=== PATIENT | female | born 1945 | race Caucasian/White ===

== ENCOUNTER 2018-08-23 18:06 | Inpatient (IN) | payer MEDICARE, MEDICAID ==
[2018-08-23 18:07] VITALS: BMI 55.0
[2018-08-23] MEDS ORDERED: Albuterol-Ipratrop 3 mg / 0.5 (3 ml) UD INH STA (18:26)
[2018-08-23] MEDS ORDERED: Albuterol-Ipratrop 3 mg / 0.5 (3 ml) UD IH STA ×2 (18:26→18:48)
[2018-08-23] MEDS ORDERED: Sodium Chloride 0.9% 500 ML IV SCH (18:30)
[2018-08-23] MEDS ORDERED: Etomidate 20 mg/10ml Inj IV ONE (18:34)
[2018-08-23] MEDS ORDERED: Succinylcholine 200 mg/10 ml Inj IV ONE (18:34)
[2018-08-23] MEDS ORDERED: Propofol 10 mg/ml 0 MG/0 ML VIAL ONE (18:42)
[2018-08-23] MEDS ORDERED: Propofol 10 mg/ml Inj (20 ML) ONE (18:42)
[2018-08-23 18:46] LABS: BASO # 0.1 K/uL (0.0-0.2); BASO % 0.4 % (0.0-2.0); EOS # 0.1 K/uL (0.0-0.7); EOS % 0.4 % (0.0-4.0); HEMOGLOBIN 11.9 g/dL (12.0-16.0); LYMPH # 2.4 K/uL (1.0-4.3); LYMPH % 13.7 % (20.0-40.0); MEAN CELL VOLUME 89.7 fl (81.0-99.0); MEAN CORPUSCULAR HEMOGLOBIN 28.1 pg (27.0-31.0); MEAN CORPUSCULAR HGB CONC 31.3 g/dL (33.0-37.0); MEAN PLATELET VOLUME 8.9 fl (7.2-11.7); MONO # 1.8 K/uL (0.0-0.8); MONO % 10.6 % (0.0-10.0); NEUT # 13.1 K/uL (1.8-7.0); NEUT % 74.9 % (50.0-75.0); NRBC % 0.1 % (0.0-0.0); RBC 4.24 Mil/uL (3.80-5.20); RED CELL DISTRIBUTION WIDTH 16.6 % (11.5-14.5); WHITE BLOOD COUNT 17.5 K/uL (4.8-10.8)
[2018-08-23] MEDS ORDERED: Magnesium Sulfate 2 gm/50 ml 2 GM/50 ML BAG IVPB ONE (18:48)
--- NOTE | 2018-08-23 18:50 | ED PDOC ---
HPI: Altered Mental Status Time Seen by Provider: 08/23/18 18:23 Chief Complaint (Nursing): Altered Mental Status Chief Complaint (Provider): Altered mental status History Per: Patient History/Exam Limitations: Clinical Condition Onset/Duration Of Symptoms: Days (today) Additional Complaint(s): Pt. was found at alf today altered and having trouble breathing. Pt. not responsive there so sent to the ER. Per records pt. recently admitted for respiratory distress. Dc few days ago from [facility]. PCP per notes: Dr. Zamudio. Past Medical History Reviewed: Historical Data, Nursing Documentation, Vital Signs Vital Signs: Last Vital Signs Temp 98.4 F 08/23/18 18:09 Pulse 59 L 08/23/18 18:09 Resp 16 08/23/18 18:09 BP 118/68 08/23/18 18:09 Pulse Ox 96 08/23/18 18:09 - Medical History PMH: Anemia, Anxiety, Arthritis, Bipolar Disorder, COPD, Dementia, Depression, HTN, Hypothyroidism, Parkinson's Disease, Sleep Apnea (on Bipap) Denies: Chronic Kidney Disease - Family History Family History: States: Unknown Family Hx - Living Arrangements Living Arrangements: Intermediate/Assist Lvng - Immunization History Hx Tetanus Toxoid Vaccination: No Hx Influenza Vaccination: No Hx Pneumococcal Vaccination: No - Home Medications Home Medications: Ambulatory Orders Medication Instructions Recorded Acetaminophen [Tylenol 325mg tab] 325 mg PO Q4H PRN 09/16/17 Cran/Vitc/Mannose/Fos/Bromeln 30 ml PO HS 09/16/17 [Uti-Stat Liquid] Famotidine 20 mg PO DAILY 09/16/17 Levothyroxine [Synthroid] 150 mcg PO DAILY 09/16/17 Magnesium Hydroxide [Milk Of 30 ml PO PRN PRN #0 09/16/17 Magnesia] Insulin Human Regular [Novolin R] 0 unit SC ACHS unit 03/19/18 Montelukast [Singulair] 10 mg PO HS #0 03/19/18 Amino Acids/Protein Hydrolys 30 ml PO DAILY 05/05/18 [Prostat 15 g packet] Azelastine HCl 1 drop OU Q8 05/05/18 Gabapentin 300 mg PO BID 05/05/18 Insulin Detemir [Levemir] 40 unit SC HS 05/05/18 Albuterol/Ipratropium [Duoneb 3 3 ml INH Q6H neb 05/09/18 mg/0.5 mg (3 ml) UD] Carbidopa/Levodopa 2 each PO TID 06/01/18 [Carbidopa-Levodopa 25-100 Tab] Furosemide [Lasix] 40 mg PO DAILY 999 Days tab 06/03/18 Aspirin [Aspirin Chewable] 81 mg PO DAILY chew 06/20/18 Escitalopram [Lexapro] 10 mg PO DAILY tab 06/20/18 Lisinopril [Zestril] 2.5 mg PO DAILY tab 06/20/18 Metoprolol Tartrate [Lopressor] 25 mg PO BID tab 06/20/18 Primidone [Mysoline] 100 mg PO HS tab 06/20/18 Rosuvastatin Calcium 2.5 [Crestor] 2.5 mg PO HS tab 06/20/18 predniSONE [predniSONE Tab] 10 mg PO DAILY 07/05/18 amLODIPine [Norvasc] 10 mg PO DAILY 30 Days tab 07/11/18 Moxifloxacin [Avelox] 400 mg PO DAILY #7 tab 08/21/18 Vancomycin/0.9 % Sod Chloride 1 gm IV DAILY 7 Days plast..bag 08/21/18 [Vancomycin 1 G/100Ml-0.9% NaCl] - Allergies Allergies/Adverse Reactions: Allergies Allergy/AdvReac Type Severity Reaction Status Date / Time Cephalosporins Allergy Intermediate RASH Verified 08/16/18 01:23 Penicillins Allergy Intermediate RASH Verified 08/16/18 01:23 clonazepam [From Klonopin] Allergy Verified 08/16/18 01:23 mustard Allergy Intermediate RASH Uncoded 08/16/18 01:23 Review of Systems Review Of Systems: ROS cannot be obtained secondary to pt's inabilty to answer questions. Physical Exam - Reviewed Nursing Documentation Reviewed: Yes Vital Signs Reviewed: Yes - Physical Exam Appears: Positive for: In Acute Distress Head Exam: Positive for: ATRAUMATIC, NORMAL INSPECTION, NORMOCEPHALIC Skin: Positive for: Warm, Dry Eye Exam: Positive for: PERRL. Negative for: Periorbital swelling, Periorbital tenderness ENT: Positive for: Other (no gag). Negative for: Nasal Congestion, Tonsillar Exudate Neck: Positive for: Supple Cardiovascular/Chest: Positive for: Regular Rate, Rhythm Respiratory: Positive for: Decreased Breath Sounds, Accessory Muscle Use Gastrointestinal/Abdominal: Positive for: Soft, Other (obese). Negative for: Tenderness Back: Positive for: Normal Inspection Extremity: Negative for: Tenderness, Pedal Edema Neurologic/Psych: Positive for: Other (no responding to commands; unresponsive). Negative for: Alert, Oriented - ECG O2 Sat by Pulse Oximetry: 96 Pulse Ox Interpretation: Normal (with oxygen) - Progress ED Course And Treament: 1851: Per records pt. extensive copd hx. Intubated last visit and dc few days ago back to alf. Pt. with no gag so intubated. Will give tx for copd. Pt. has a port, will use. 1899: Dr. Medina to fu on labs imaging, and dispo. Procedures - Intubation Time of Intubation: 18:45 (etomidate 20 used) Intubation Method: orotracheal Tube Size (cm): 7.5 Breath Sounds after Intubation: equal Intubation Complications: no complications Post Intubation Xray: No (pending x-ray) Progress/Xray Impression: Good breath sounds b/l; no breath sounds in abd; CO2 detector change see Disposition - Clinical Impression Clinical Impression: COPD (chronic obstructive pulmonary disease) - Patient ED Disposition Is Patient to be Admitted: Transfer of Care - Disposition Disposition: Transfer of Care Disposition Time: 19:03 Condition: SERIOUS Patient Signed Over To: Agustin Medina
[2018-08-23 18:53] LABS: SQUAMOUS EPITHIAL 1 /hpf (0-5); URINE BACTERIA RARE (<OCC); URINE BILIRUBIN NEGATIVE (NEGATIVE); URINE BLOOD SMALL (NEGATIVE); URINE CLARITY SLIGHTY-CLOUDY (Clear); URINE COLOR YELLOW (YELLOW); URINE GLUCOSE (UA) NEG (Normal); URINE LEUKOCYTE ESTERASE NEG Leu/uL (Negative); URINE PROTEIN 30 mg/dL (NEGATIVE); URINE UROBILINOGEN 0.2-1.0 mg/dL (0.2-1.0)
[2018-08-23 18:57] LABS: ABG ALLEN TEST YES; ARTERIAL BLOOD GAS HCO3 30.6 mmol/L (21-28); ARTERIAL BLOOD GAS O2 SAT 100.4 % (95-98); ARTERIAL BLOOD GAS PCO2 120 mm/Hg (35-45); ARTERIAL BLOOD GAS PH 7.14 (7.35-7.45); ARTERIAL BLOOD GAS PO2 151 mm/Hg (80-100); ARTERIAL BLOOD GAS TCO2 44.5 mmol/L (22-28)
[2018-08-23 18:59] LABS: ALBUMIN 3.3 g/dL (3.5-5.0); BLOOD UREA NITROGEN 29 mg/dl (7-17); CALCIUM 8.5 mg/dL (8.4-10.2); GFR NON-AFRICAN AMERICAN > 60
[2018-08-23 19:00] LABS: ALB/GLOB RATIO 1.1 (1.0-2.1); ALT/SGPT 13 U/L (9-52); AST/SGOT 21 U/L (14-36)
[2018-08-23] MEDS ORDERED: Etomidate 20 mg/10ml Inj IV STA (19:02)
[2018-08-23 19:04] LABS: INR 0.9; PROTHROMBIN TIME 10.6 Seconds (9.8-13.1)
[2018-08-23 19:07] LABS: PARTIAL THROMBOPLASTIN TIME 30.6 Seconds (25.6-37.1)
[2018-08-23 19:09] LABS: B-TYPE NATRIURETIC PEPTIDE 876 pg/ml (0-900)
[2018-08-23] MEDS ORDERED: Albuterol-Ipratrop 3 mg / 0.5 (3 ml) UD ONE ×2 (19:13→20:37)
[2018-08-23] MEDS ORDERED: Magnesium Sulfate 2 gm/50 ml 2 GM/50 ML BAG ONE (19:14)
[2018-08-23] MEDS ORDERED: Sodium Chloride 0.9% 1,000 ML IV STA ×2 (19:15→20:29)
--- NOTE | 2018-08-23 19:23 | ED PDOC ---
- Laboratory Results Result Diagrams: 08/24/18 04:45 08/24/18 04:45 - ECG O2 Sat by Pulse Oximetry: 96 (RA) Pulse Ox Interpretation: Normal - Critical Care Total Time (In Min): 30 Documented Critical Care: Time excludes all time spent performint seperately billable procedures Medical Decision Making Medical Decision Making: Time: 19:00 Patient was endorsed to me by Dr. Laughlin pending labs, CT, and reevaluation. 22:42 Labs review, significant for leukocytosis. Urine indicative of a urinary tract infection. IV Cipro ordered and patient's blood pressure improved after 2 liters IV fluid bolus. Case discussed with Dr. Becker for admission. Scribe Attestation: Documented by, Alexia Rangel acting as a scribe for Agustin Medina MD. Provider Scribe Attestation: All medical record entries made by the Scribe were at my direction and personally dictated by me. I have reviewed the chart and agree that the record accurately reflects my personal performance of the history, physical exam, medical decision making, and the department course for this patient. I have also personally directed, reviewed, and agree with the discharge instructions and disposition. Disposition - Clinical Impression Clinical Impression: COPD (chronic obstructive pulmonary disease), Hypercapnic respiratory failure - POA Present On Arrival: None - Disposition Disposition: Admitted as In-Patient Disposition Time: 22:45 Condition: GUARDED
[2018-08-23] MEDS ORDERED: Ciprofloxacin 400mg/200ml D5W 400 MG/200 ML BAG IV STA (19:49)
[2018-08-23] MEDS ORDERED: Ciprofloxacin 400mg/200ml D5W 400 MG/200 ML BAG IVPB ONE (20:37)
--- NOTE | 2018-08-23 22:12 | CP.PCM.HP ---
History of Present Illness - History of Present Illness History of Present Illness: PCP per notes: Dr. Zamudio Chief Complaint: SOB/AMS The patient was seen and examined in the ED already HPI: The hx is obtained from the ED physician and after review of the medical and radiological records as the patient is intubated and sedated. This is a 72 years old patient From the [facility],with hx of morbid obesity, Sleep Apnea, Probably obesity hypoventilation, COPDand DM insulin requiring. She was last admitted at the [facility] on 08/16/18 with COPD exacerbation having to be intubated. She was Discharged on 08/21/18. She comes with one day of SOB and Altered mental status. In the ED he PCO2 was 120 and pH of 7.14. She was intubated immediately. Blood pressure fell post intubation but improved with IV fluids. PMH Anemia, Anxiety, Arthritis, Bipolar Disorder, COPD, Dementia, Depression, HTN, HLD, Parkinson's Disease, Sleep Apnea (on Bipap)Morbid Obesity; Hypothyro idism; IDDM PSH: Hysterectomy; Orthopedic surgery; right breast surgery SH: Unknown if smoked; No illegal drug use; No Alcohol, Reside at [facility]; Indwelling olivarez catheter FH: States: Unknown Family Hx Allergies: Cephalosporins; PCN; Clonazepam; Mustard Medication: Reviewed Present on Admission - Present on Admission Any Indicators Present on Admission: Yes History of DVT/PE: No History of Uncontrolled Diabetes: Yes Urinary Catheter: No Decubitus Ulcer Present: No Review of Systems - Review of Systems Systems not reviewed;Unavailable: Altered Mental Status, Intubated Review of Systems: Review of systems is limited becauser the patient is intubated and was not respinding normal on entering the ED. Past Patient History - Infectious Disease Hx of Infectious Diseases: None - Tetanus Immunizations Tetanus Immunization: Unknown - Past Medical History & Family History Past Medical History?: Yes - Past Social History Smoking Status: Unknown If Ever Smoked Chewing Tobacco Use: No Cigar Use: No Alcohol: None Drugs: Denies Home Situation {Lives}: [facility] - CARDIAC Hx Hypertension: Yes - PULMONARY Hx Chronic Obstructive Pulmonary Disease (COPD): Yes Hx Sleep Apnea: Yes (on Bipap) - NEUROLOGICAL Hx Dementia: Yes Hx Parkinson's Disease: Yes - HEENT Hx HEENT Problems: No - RENAL Hx Chronic Kidney Disease: No - ENDOCRINE/METABOLIC Hx Hypothyroidism: Yes - HEMATOLOGICAL/ONCOLOGICAL Hx Anemia: Yes - INTEGUMENTARY Hx Dermatological Problems: No - MUSCULOSKELETAL/RHEUMATOLOGICAL Hx Arthritis: Yes - GASTROINTESTINAL Hx Gastrointestinal Disorders: Yes Hx Constipation: Yes Hx Gastroesophageal Reflux: Yes - GENITOURINARY/GYNECOLOGICAL Hx Genitourinary Disorders: Yes Hx Incontinence: Yes Hx Urinary Tract Infection: Yes - PSYCHIATRIC Hx Anxiety: Yes Hx Bipolar Disorder: Yes Hx Depression: Yes - SURGICAL HISTORY Hx Surgeries: Yes Hx Hysterectomy: Yes Hx Orthopedic Surgery: Yes Other/Comment: right knee replacement 2014; right knee prosthesis removal s/p infection 2014 - ANESTHESIA Hx Anesthesia: Yes Hx Anesthesia Reactions: No Hx Malignant Hyperthermia: No Meds Allergies/Adverse Reactions: Allergies Allergy/AdvReac Type Severity Reaction Status Date / Time Cephalosporins Allergy Intermediate RASH Verified 08/16/18 01:23 Penicillins Allergy Intermediate RASH Verified 08/16/18 01:23 clonazepam [From Klonopin] Allergy Verified 08/16/18 01:23 mustard Allergy Intermediate RASH Uncoded 08/16/18 01:23 Physical Exam - Constitutional Appears: In Acute Distress Additional comments: Morbid obesity - Head Exam Head Exam: ATRAUMATIC, NORMAL INSPECTION, NORMOCEPHALIC - Eye Exam Eye Exam: Normal appearance Pupil Exam: NORMAL ACCOMODATION - ENT Exam ENT Exam: Mucous Membranes Moist, Normal External Ear Exam - Neck Exam Neck exam: Positive for: Full Rom. Negative for: Lymphadenopathy Additional comments: Short neck. - Respiratory Exam Respiratory Exam: Decreased Breath Sounds, Rhonchi, Wheezes - Cardiovascular Exam Cardiovascular Exam: REGULAR RHYTHM, RRR, +S1, +S2. absent: Gallop - GI/Abdominal Exam Additional comments: Obese abdomen, soft, no viceromegaleas - Rectal Exam Rectal Exam: Deferred - Extremities Exam Extremities exam: Negative for: joint swelling, pedal edema - Back Exam Back exam: NORMAL INSPECTION - Neurological Exam Additional comments: Intubated, sedated, no facial droop, moved both upper extremities, moving the left lower extremities more than the right lower extremity. - Psychiatric Exam Additional comments: Intubated, Sedated - Skin Skin Exam: Intact, Normal Color, Warm Results - Vital Signs Recent Vital Signs: Last Vital Signs Temp 97.7 F 08/23/18 18:52 Pulse 57 L 08/23/18 21:20 Resp 18 08/23/18 21:20 BP 111/56 L 08/23/18 21:20 Pulse Ox 100 08/23/18 21:20 - Labs Result Diagrams: 08/23/18 18:40 08/23/18 18:40 Labs: Laboratory Results - last 24 hr 08/23/18 08/23/18 08/23/18 18:28 18:40 18:40 WBC 17.5 H RBC 4.24 Hgb 11.9 L Hct 38.0 MCV 89.7 MCH 28.1 MCHC 31.3 L RDW 16.6 H Plt Count 303 MPV 8.9 Neut % (Auto) 74.9 Lymph % (Auto) 13.7 L [place] % (Auto) 10.6 H Eos % (Auto) 0.4 Baso % (Auto) 0.4 Neut # (Auto) 13.1 H Lymph # (Auto) 2.4 [place] # (Auto) 1.8 H Eos # (Auto) 0.1 Baso # (Auto) 0.1 PT INR APTT pCO2 pO2 HCO3 ABG pH ABG Total CO2 ABG O2 Saturation ABG Base Excess Jay Test ABG Potassium A-a O2 Difference Glucose Lactate Vent Mode FiO2 Crit Value Called To Crit Value Called By Crit Value Read Back Blood Gas Notified Time Sodium 142 Potassium 4.5 Chloride 100 Carbon Dioxide 34 H Anion Gap 13 BUN 29 H Creatinine 0.6 L Est GFR ( Amer) > 60 Est GFR (Non-Af Amer) > 60 POC Glucose (mg/dL) 147 H Random Glucose 149 H Calcium 8.5 Phosphorus 4.9 H Magnesium 2.4 H Total Bilirubin 0.2 AST 21 ALT 13 Alkaline Phosphatase 53 Troponin I 0.0420 NT-Pro-B Natriuret Pep 876 Total Protein 6.4 Albumin 3.3 L Globulin 3.1 Albumin/Globulin Ratio 1.1 Arterial Blood Potassium Urine Color Urine Clarity Urine pH Ur Specific [place] Urine Protein Urine Glucose (UA) Urine Ketones Urine Blood Urine Nitrate Urine Bilirubin Urine Urobilinogen Ur Leukocyte Esterase Urine RBC (Auto) Urine Microscopic WBC Ur Squamous Epith Cells Ur Transition Epith Cell Urine Bacteria Influenza Typ A,B (EIA) 08/23/18 08/23/18 08/23/18 18:40 18:48 18:53 WBC RBC Hgb Hct MCV MCH MCHC RDW Plt Count MPV Neut % (Auto) Lymph % (Auto) [place] % (Auto) Eos % (Auto) Baso % (Auto) Neut # (Auto) Lymph # (Auto) [place] # (Auto) Eos # (Auto) Baso # (Auto) PT INR APTT pCO2 120 H* pO2 151 H HCO3 30.6 H ABG pH 7.14 L* ABG Total CO2 44.5 H ABG O2 Saturation 100.4 H ABG Base Excess 7.2 H Jay Test Yes ABG Potassium 4.3 A-a O2 Difference 412.0 Glucose 160 H Lactate 0.6 L Vent Mode Nrb FiO2 100.0 Crit Value Called To nuvia Laughlin md Crit Value Called By Jayant norton Crit Value Read Back Y Blood Gas Notified Time 1857 Sodium 139.0 Potassium Chloride 104.0 Carbon Dioxide Anion Gap BUN Creatinine Est GFR ( Amer) Est GFR (Non-Af Amer) POC Glucose (mg/dL) Random Glucose Calcium Phosphorus Magnesium Total Bilirubin AST ALT Alkaline Phosphatase Troponin I NT-Pro-B Natriuret Pep Total Protein Albumin Globulin Albumin/Globulin Ratio Arterial Blood Potassium 4.3 Urine Color Yellow Urine Clarity Slighty-cloudy Urine pH 6.0 Ur Specific [place] 1.016 Urine Protein 30 Urine Glucose (UA) Neg Urine Ketones Negative Urine Blood Small Urine Nitrate Negative Urine Bilirubin Negative Urine Urobilinogen 0.2-1.0 Ur Leukocyte Esterase Neg Urine RBC (Auto) 4 H Urine Microscopic WBC 12 H Ur Squamous Epith Cells 1 Ur Transition Epith Cell 4 H Urine Bacteria Rare Influenza Typ A,B (EIA) Negative for flu a/b 08/23/18 18:55 WBC RBC Hgb Hct MCV MCH MCHC RDW Plt Count MPV Neut % (Auto) Lymph % (Auto) [place] % (Auto) Eos % (Auto) Baso % (Auto) Neut # (Auto) Lymph # (Auto) [place] # (Auto) Eos # (Auto) Baso # (Auto) PT 10.6 INR 0.9 APTT 30.6 pCO2 pO2 HCO3 ABG pH ABG Total CO2 ABG O2 Saturation ABG Base Excess Jay Test ABG Potassium A-a O2 Difference Glucose Lactate Vent Mode FiO2 Crit Value Called To Crit Value Called By Crit Value Read Back Blood Gas Notified Time Sodium Potassium Chloride Carbon Dioxide Anion Gap BUN Creatinine Est GFR ( Amer) Est GFR (Non-Af Amer) POC Glucose (mg/dL) Random Glucose Calcium Phosphorus Magnesium Total Bilirubin AST ALT Alkaline Phosphatase Troponin I NT-Pro-B Natriuret Pep Total Protein Albumin Globulin Albumin/Globulin Ratio Arterial Blood Potassium Urine Color Urine Clarity Urine pH Ur Specific [place] Urine Protein Urine Glucose (UA) Urine Ketones Urine Blood Urine Nitrate Urine Bilirubin Urine Urobilinogen Ur Leukocyte Esterase Urine RBC (Auto) Urine Microscopic WBC Ur Squamous Epith Cells Ur Transition Epith Cell Urine Bacteria Influenza Typ A,B (EIA) - Imaging and Cardiology Chest x-ray Status: Image reviewed by me Additional comment: No infiltrate CT scan - head Status: Image reviewed by me Additional comment: No hemorrhage nor mass observed Assessment & Plan - Assessment and Plan (Free Text) Assessment: #. Acute on chronic hypocapneic Respiratory Failure #. COPD Exacerbation #. Dehydration #. IDDM with Hyperglycemia #. Hypothyroidism #. Leukocytosis Plan: 72 years old patient From the [facility],with hx of morbid obes ity, Sleep Apnea, Probably obesity hypoventilation, COPD and DM insulin requiring, Discharged 08/21/18 from [facility], Dx COPD exacerbation with intubation. She comes with one day of SOB and Altered mental status. In the ED he PCO2 was 120 and pH of 7.14. She was intubated immediately. Blood pressure fell post intubation but improved with IV fluids. #. Acute on chronic hypocapneic Respiratory Failure - Consult Pulmonary Dr Leivaut - Orotrachial Intubation with mechanical intubation - follow ABG #. COPD Exacerbation - Albuterol/Ipratropium - Methylprednisolone #. Dehydration - IV Fluids - follow Renal labs #. IDDM with Hyperglycemia - levemir - Lispro sliding scale according to accucheck #. Hypothyroidism - Levothyroxin #. Leukocytosis probably due to the Steroids that the patient was taking #. DVT prophylaxis with SCD and lovenox #. Code Status: Full - Date & Time Date: 08/23/18 Time: 22:12
[2018-08-23] MEDS: Propofol 10 mg/ml 1,000 MG/100 ML VIAL IV SCH (22:25)
[2018-08-23] MEDS: Sodium Chloride 0.9% 1,000 ML IV SCH (23:57)
[2018-08-24 01:58] LABS: ABG ALLEN TEST YES; ARTERIAL BLOOD GAS HCO3 29.8 mmol/L (21-28); ARTERIAL BLOOD GAS HEMOGLOBIN 11.7 g/dL (11.7-17.4); ARTERIAL BLOOD GAS O2 CONTENT 15.8 ML/dL (15-23); ARTERIAL BLOOD GAS O2 SAT 98.5 % (95-98); ARTERIAL BLOOD GAS PCO2 28 mm/Hg (35-45); ARTERIAL BLOOD GAS PO2 91 mm/Hg (80-100); ARTERIAL BLOOD GAS TCO2 28.4 mmol/L (22-28)
[2018-08-24] MEDS ORDERED: Albuterol-Ipratrop 3 mg / 0.5 (3 ml) UD INH PRN (02:45)
[2018-08-24] MEDS ORDERED: Insulin Regular 100 units/ml SC SCH (03:00)
[2018-08-24] MEDS ORDERED: methylPREDNISolone 60 MG in Sodium Chloride 0.9% 50 ML IVPB SCH (04:00)
[2018-08-24 05:10] LABS: HEMOGLOBIN 10.7 g/dL (12.0-16.0); MEAN CELL VOLUME 88.7 fl (81.0-99.0); MEAN CORPUSCULAR HEMOGLOBIN 28.2 pg (27.0-31.0); MEAN CORPUSCULAR HGB CONC 31.7 g/dL (33.0-37.0); RBC 3.82 Mil/uL (3.80-5.20); RED CELL DISTRIBUTION WIDTH 16.1 % (11.5-14.5); WHITE BLOOD COUNT 14.6 K/uL (4.8-10.8)
[2018-08-24 05:23] LABS: ABG ALLEN TEST YES; ARTERIAL BLOOD GAS HCO3 29.7 mmol/L (21-28); ARTERIAL BLOOD GAS HEMOGLOBIN 11.6 g/dL (11.7-17.4); ARTERIAL BLOOD GAS O2 CONTENT 15.8 ML/dL (15-23); ARTERIAL BLOOD GAS O2 SAT 98.5 % (95-98); ARTERIAL BLOOD GAS PCO2 37 mm/Hg (35-45); ARTERIAL BLOOD GAS PH 7.51 (7.35-7.45); ARTERIAL BLOOD GAS PO2 107 mm/Hg (80-100); ARTERIAL BLOOD GAS TCO2 30.6 mmol/L (22-28)
[2018-08-24 05:24] LABS: BLOOD UREA NITROGEN 24 mg/dl (7-17); CALCIUM 6.8 mg/dL (8.4-10.2); GFR NON-AFRICAN AMERICAN > 60
[2018-08-24] MEDS: Albuterol-Ipratrop 3 mg / 0.5 (3 ml) UD INH SCH ×5 (07:42→23:34)
--- NOTE | 2018-08-24 08:49 | CARD ---
APPROVED REPORT Date of service: 08/23/2018 EKG Measurement Heart [id number] <Conclusion> Normal sinus rhythm Normal ECG
[2018-08-24] MEDS: Sodium Chloride 0.9% 1,000 ML IV SCH ×2 (09:04→20:23)
--- NOTE | 2018-08-24 10:00 | CT ---
Date of service: 08/23/2018 PROCEDURE: CT HEAD WITHOUT CONTRAST. HISTORY: headache COMPARISON: None available. TECHNIQUE: Axial computed tomography images were obtained through the head/brain without intravenous contrast. Radiation dose: Total exam DLP = 1615.53 mGy-cm. This CT exam was performed using one or more of the following dose reduction techniques: Automated exposure control, adjustment of the mA and/or kV according to patient size, and/or use of iterative reconstruction technique. FINDINGS: HEMORRHAGE: No intracranial hemorrhage. BRAIN: No mass effect or edema. No atrophy or chronic microvascular ischemic changes. VENTRICLES: Unremarkable. No hydrocephalus. CALVARIUM: Unremarkable. PARANASAL SINUSES: Unremarkable as visualized. No significant inflammatory changes. MASTOID AIR CELLS: Unremarkable as visualized. No inflammatory changes. OTHER FINDINGS: None. IMPRESSION: Normal CT of the Head.
--- NOTE | 2018-08-24 10:34 | CP.PCM.PN ---
Subjective - Date & Time of Evaluation Date of Evaluation: 08/24/18 Time of Evaluation: 10:00 - Subjective Subjective: Pt is Intubated on [facility] Vent : 14 /500/5/40% Sedated on Propofol Slight opens eyes to verbal stimuli no fever Objective - Vital Signs/Intake and Output Vital Signs (last 24 hours): Temp Pulse Resp BP Pulse Ox 97.3 F L 72 14 197/93 H 95 08/24/18 08:00 08/24/18 09:28 08/24/18 08:00 08/24/18 09:28 08/24/18 08:00 Intake and Output: 08/24/18 08/24/18 06:59 18:59 Intake Total 800 208 Output Total 700 Balance 100 208 - Medications Medications: Current Medications Acetaminophen (Tylenol 325mg Tab) 325 mg PO Q4H PRN PRN Reason: Pain, Mild (1-3) Albuterol/Ipratropium (Duoneb 3 Mg/0.5 Mg (3 Ml) Ud) 3 ml INH RQ4 MALOU Last Admin: 08/24/18 07:42 Dose: 3 ml Albuterol/Ipratropium (Duoneb 3 Mg/0.5 Mg (3 Ml) Ud) 3 ml INH RQ2 PRN PRN Reason: Shortness of Breath Amlodipine Besylate (Norvasc) 10 mg PO DAILY [facility] Last Admin: 08/24/18 09:19 Dose: 10 mg Atorvastatin Calcium (Lipitor) 5 mg PO HS [facility] Gabapentin (Neurontin) 300 mg PO BID [facility] Last Admin: 08/24/18 09:18 Dose: 300 mg Propofol (Diprivan) 1,000 mg in 100 mls @ 3.81 mls/hr IV .Q24H [facility]; Protocol Stop: 08/24/18 21:32 Last Admin: 08/23/18 22:25 Dose: 5 mcg/kg/min, 3.81 mls/hr Sodium Chloride (Sodium Chloride 0.9%) 1,000 mls @ 100 mls/hr IV .Q10H [facility] Last Admin: 08/24/18 09:04 Dose: 100 mls/hr Insulin Human Regular (Humulin R) 0 units SC Q6H [facility]; Protocol Levothyroxine Sodium (Synthroid) 150 mcg PO DAILY@0630 [facility] Lisinopril (Zestril) 2.5 mg PO DAILY [facility] Last Admin: 08/24/18 09:28 Dose: 2.5 mg Methylprednisolone (Solu-Medrol) 60 mg IV Q6 [facility] Last Admin: 08/24/18 09:19 Dose: 60 mg Metoprolol Tartrate (Lopressor) 25 mg PO BID [facility] Last Admin: 08/24/18 09:07 Dose: 25 mg Montelukast Sodium (Singulair) 10 mg PO HS [facility] - Labs Labs: 08/24/18 04:45 08/24/18 04:45 PT 10.6 Seconds (9.8-13.1) 08/23/18 18:55 INR 0.9 08/23/18 18:55 APTT 30.6 Seconds (25.6-37.1) 08/23/18 18:55 - Constitutional Appears: Other (Intubated on Vent, Sedated) - Head Exam Head Exam: NORMAL INSPECTION, NORMOCEPHALIC - ENT Exam ENT Exam: Mucous Membranes Dry, Normal External Ear Exam - Neck Exam Neck Exam: absent: Meningismus - Respiratory Exam Respiratory Exam: Rales, Rhonchi, Wheezes Additional comments: Intubated on Vent - Cardiovascular Exam Cardiovascular Exam: REGULAR RHYTHM, +S1, +S2 - GI/Abdominal Exam GI & Abdominal Exam: Soft, Normal Bowel Sounds - Extremities Exam Extremities Exam: Normal Capillary Refill - Neurological Exam Additional comments: Sedated - Skin Skin Exam: Normal Color, Warm Assessment and Plan - Assessment and Plan (Free Text) Assessment: 72 years old patient from the [facility],with hx of morbid obesity, Sleep Apnea, Probably obesity hypoventilation, COPD and DM II insulin requiring, discharged 08/21/18 from [facility], Dx COPD exacerbation with intubation. She comes with one day of SOB and Altered mental status. In the ED he PCO2 was 120 and pH of 7.14. She was intubated immediately. Blood pressure fell post intubation but improved with IV fluids. 1. Acute on chronic hypercapneic Respiratory Failure sec to COPD exacerbation and OHS - Pt is intubated on [facility] Vent 14/500/5/40% - Consult Pulmonary Dr Duong - 2. COPD Exacerbation -cont Albuterol/Ipratropium - cont Methylprednisolone 3. Dehydration - improved with IV Fluids 4.DM type II with Hyperglycemia, Insulin Use - cont levemir - Lispro sliding scale according to accucheck 5. Hypothyroidism - cont Levothyroxin 6. Leukocytosis probably due to the Steroids CXR no active dis #. DVT prophylaxis with SCD and lovenox #. Code Status: Full
--- NOTE | 2018-08-24 10:42 | RAD ---
Date of service: 08/23/2018 HISTORY: Sepsis Patient COMPARISON: No prior. FINDINGS: LUNGS: No active pulmonary disease. PLEURA: No significant pleural effusion identified, no pneumothorax apparent. CARDIOVASCULAR: No aortic atherosclerotic calcification present. Normal cardiac size. No pulmonary vascular congestion. OSSEOUS STRUCTURES: No significant abnormalities. VISUALIZED UPPER ABDOMEN: Endotracheal tube above the bigg. OTHER FINDINGS: None. IMPRESSION: No active disease.
--- NOTE | 2018-08-24 11:09 | CP.PCM.CON ---
History of Present Illness - History of Present Illness History of Present Illness: HPI: This is a 72 years old morbidly obese patient with h/o Sleep Apnea, Probably obesity hypoventilation, COPDand DM insulin requiring who was last admitted at the [facility] on 08/16/18 with COPD exacerbation having to be intubated. She was Discharged on 08/21/18. She comes with one day of SOB and Altered mental status. In the ED he PCO2 was 120 and pH of 7.14. She was intubated immediately. Blood pressure fell post intubation but improved with IV fluids. She is now in ICU, sedated and intubated. BP has been stable . Review of Systems - Review of Systems Systems not reviewed;Unavailable: Intubated - EENT Eyes: As Per HPI Ears: As Per HPI - Cardiovascular Cardiovascular: As Per HPI - Respiratory Respiratory: Wheezing - Gastrointestinal Gastrointestinal: As Per HPI Past Patient History - Infectious Disease Hx of Infectious Diseases: None - Tetanus Immunizations Tetanus Immunization: Unknown - Past Medical History & Family History Past Medical History?: Yes - Past Social History Smoking Status: Unknown If Ever Smoked Chewing Tobacco Use: No Cigar Use: No Alcohol: None Drugs: Denies Home Situation {Lives}: Long Term - CARDIAC Hx Hypertension: Yes - PULMONARY Hx Chronic Obstructive Pulmonary Disease (COPD): Yes Hx Sleep Apnea: Yes (on Bipap) - NEUROLOGICAL Hx Dementia: Yes Hx Parkinson's Disease: Yes - HEENT Hx HEENT Problems: No - RENAL Hx Chronic Kidney Disease: No - ENDOCRINE/METABOLIC Hx Hypothyroidism: Yes - HEMATOLOGICAL/ONCOLOGICAL Hx Anemia: Yes - INTEGUMENTARY Hx Dermatological Problems: No - MUSCULOSKELETAL/RHEUMATOLOGICAL Hx Arthritis: Yes - GASTROINTESTINAL Hx Gastrointestinal Disorders: Yes Hx Constipation: Yes Hx Gastroesophageal Reflux: Yes - GENITOURINARY/GYNECOLOGICAL Hx Genitourinary Disorders: Yes Hx Incontinence: Yes Hx Urinary Tract Infection: Yes - PSYCHIATRIC Hx Anxiety: Yes Hx Bipolar Disorder: Yes Hx Depression: Yes - SURGICAL HISTORY Hx Surgeries: Yes Hx Hysterectomy: Yes Hx Orthopedic Surgery: Yes Other/Comment: right knee replacement 2014; right knee prosthesis removal s/p infection 2014 - ANESTHESIA Hx Anesthesia: Yes Hx Anesthesia Reactions: No Hx Malignant Hyperthermia: No Meds Allergies/Adverse Reactions: Allergies Allergy/AdvReac Type Severity Reaction Status Date / Time Cephalosporins Allergy Intermediate RASH Verified 08/16/18 01:23 Penicillins Allergy Intermediate RASH Verified 10/26/18 01:23 clonazepam [From Klonopin] Allergy Verified 08/16/18 01:23 mustard Allergy Intermediate RASH Uncoded 08/16/18 01:23 - Medications Medications: Current Medications Acetaminophen (Tylenol 325mg Tab) 325 mg PO Q4H PRN PRN Reason: Pain, Mild (1-3) Albuterol/Ipratropium (Duoneb 3 Mg/0.5 Mg (3 Ml) Ud) 3 ml INH RQ4 MALOU Last Admin: 08/24/18 07:42 Dose: 3 ml Albuterol/Ipratropium (Duoneb 3 Mg/0.5 Mg (3 Ml) Ud) 3 ml INH RQ2 PRN PRN Reason: Shortness of Breath Amlodipine Besylate (Norvasc) 10 mg PO DAILY [facility] Last Admin: 08/24/18 09:19 Dose: 10 mg Atorvastatin Calcium (Lipitor) 5 mg PO HS [facility] Gabapentin (Neurontin) 300 mg PO BID [facility] Last Admin: 08/24/18 09:18 Dose: 300 mg Propofol (Diprivan) 1,000 mg in 100 mls @ 3.81 mls/hr IV .Q24H [facility]; Protocol Stop: 08/24/18 21:32 Last Admin: 08/23/18 22:25 Dose: 5 mcg/kg/min, 3.81 mls/hr Sodium Chloride (Sodium Chloride 0.9%) 1,000 mls @ 100 mls/hr IV .Q10H [facility] Last Admin: 08/24/18 09:04 Dose: 100 mls/hr Insulin Human Regular (Humulin R) 0 units SC Q6H [facility]; Protocol Levothyroxine Sodium (Synthroid) 150 mcg PO DAILY@0630 [facility] Lisinopril (Zestril) 2.5 mg PO DAILY [facility] Last Admin: 08/24/18 09:28 Dose: 2.5 mg Methylprednisolone (Solu-Medrol) 60 mg IV Q6 [facility] Last Admin: 08/24/18 09:19 Dose: 60 mg Metoprolol Tartrate (Lopressor) 25 mg PO BID [facility] Last Admin: 08/24/18 09:07 Dose: 25 mg Montelukast Sodium (Singulair) 10 mg PO HS [facility] Physical Exam - Head Exam Head Exam: ATRAUMATIC - Eye Exam Eye Exam: Normal appearance - ENT Exam ENT Exam: Mucous Membranes Moist - Neck Exam Neck exam: Positive for: Full Rom - Respiratory Exam Respiratory Exam: Rhonchi - Cardiovascular Exam Cardiovascular Exam: REGULAR RHYTHM - GI/Abdominal Exam GI & Abdominal Exam: Soft Results - Vital Signs Recent Vital Signs: Last Vital Signs Temp 97.3 F L 08/24/18 08:00 Pulse 72 08/24/18 09:28 Resp 14 08/24/18 08:00 BP 197/93 H 08/24/18 09:28 Pulse Ox 95 08/24/18 08:00 - Labs Result Diagrams: 08/24/18 04:45 08/24/18 04:45 Labs: Laboratory Results - last 24 hr 08/23/18 08/23/18 08/23/18 18:28 18:40 18:40 WBC 17.5 H RBC 4.24 Hgb 11.9 L Hct 38.0 MCV 89.7 MCH 28.1 MCHC 31.3 L RDW 16.6 H Plt Count 303 MPV 8.9 Neut % (Auto) 74.9 Lymph % (Auto) 13.7 L [place] % (Auto) 10.6 H Eos % (Auto) 0.4 Baso % (Auto) 0.4 Neut # (Auto) 13.1 H Lymph # (Auto) 2.4 Bucks # (Auto) 1.8 H Eos # (Auto) 0.1 Baso # (Auto) 0.1 PT INR APTT pCO2 pO2 HCO3 ABG pH ABG Total CO2 ABG O2 Saturation ABG O2 Content ABG Base Excess ABG Hemoglobin ABG Carboxyhemoglobin POC ABG HHb (Measured) ABG Methemoglobin ABG O2 Capacity Jay Test ABG Potassium A-a O2 Difference Hgb O2 Saturation Glucose Lactate Vent Mode Mechanical Rate FiO2 Tidal Volume PEEP Crit Value Called To Crit Value Called By Crit Value Read Back Blood Gas Notified Time Sodium 142 Potassium 4.5 Chloride 100 Carbon Dioxide 34 H Anion Gap 13 BUN 29 H Creatinine 0.6 L Est GFR ( Amer) > 60 Est GFR (Non-Af Amer) > 60 POC Glucose (mg/dL) 147 H Random Glucose 149 H Calcium 8.5 Phosphorus 4.9 H Magnesium 2.4 H Total Bilirubin 0.2 AST 21 ALT 13 Alkaline Phosphatase 53 Troponin I 0.0420 NT-Pro-B Natriuret Pep 876 Total Protein 6.4 Albumin 3.3 L Globulin 3.1 Albumin/Globulin Ratio 1.1 Arterial Blood Potassium Urine Color Urine Clarity Urine pH Ur Specific [place] Urine Protein Urine Glucose (UA) Urine Ketones Urine Blood Urine Nitrate Urine Bilirubin Urine Urobilinogen Ur Leukocyte Esterase Urine RBC (Auto) Urine Microscopic WBC Ur Squamous Epith Cells Ur Transition Epith Cell Urine Bacteria Influenza Typ A,B (EIA) 08/23/18 08/23/18 08/23/18 18:40 18:48 18:53 WBC RBC Hgb Hct MCV MCH MCHC RDW Plt Count MPV Neut % (Auto) Lymph % (Auto) B[place] % (Auto) Eos % (Auto) Baso % (Auto) Neut # (Auto) Lymph # (Auto) Bucks # (Auto) Eos # (Auto) Baso # (Auto) PT INR APTT pCO2 120 H* pO2 151 H HCO3 30.6 H ABG pH 7.14 L* ABG Total CO2 44.5 H ABG O2 Saturation 100.4 H ABG O2 Content ABG Base Excess 7.2 H ABG Hemoglobin ABG Carboxyhemoglobin POC ABG HHb (Measured) ABG Methemoglobin ABG O2 Capacity Jay Test Yes ABG Potassium 4.3 A-a O2 Difference 412.0 Hgb O2 Saturation Glucose 160 H Lactate 0.6 L Vent Mode Nrb Mechanical Rate FiO2 100.0 Tidal Volume PEEP Crit Value Called To nuvia Laughlin md Crit Value Called By Jayant norton Crit Value Read Back Y Blood Gas Notified Time 185 Sodium 139.0 Potassium Chloride 104.0 Carbon Dioxide Anion Gap BUN Creatinine Est GFR ( Amer) Est GFR (Non-Af Amer) POC Glucose (mg/dL) Random Glucose Calcium Phosphorus Magnesium Total Bilirubin AST ALT Alkaline Phosphatase Troponin I NT-Pro-B Natriuret Pep Total Protein Albumin Globulin Albumin/Globulin Ratio Arterial Blood Potassium 4.3 Urine Color Yellow Urine Clarity Slighty-cloudy Urine pH 6.0 Ur Specific [place] 1.016 Urine Protein 30 Urine Glucose (UA) Neg Urine Ketones Negative Urine Blood Small Urine Nitrate Negative Urine Bilirubin Negative Urine Urobilinogen 0.2-1.0 Ur Leukocyte Esterase Neg Urine RBC (Auto) 4 H Urine Microscopic WBC 12 H Ur Squamous Epith Cells 1 Ur Transition Epith Cell 4 H Urine Bacteria Rare Influenza Typ A,B (EIA) Negative for flu a/b 08/23/18 08/24/18 08/24/18 18:55 01:49 04:45 WBC 14.6 H RBC 3.82 Hgb 10.7 L Hct 33.9 L MCV 88.7 MCH 28.2 MCHC 31.7 L RDW 16.1 H Plt Count 253 MPV Neut % (Auto) Lymph % (Auto) Bucks % (Auto) Eos % (Auto) Baso % (Auto) Neut # (Auto) Lymph # (Auto) Bucks # (Auto) Eos # (Auto) Baso # (Auto) PT 10.6 INR 0.9 APTT 30.6 pCO2 28 L pO2 91 HCO3 29.8 H ABG pH 7.60 H ABG Total CO2 28.4 H ABG O2 Saturation 98.5 H ABG O2 Content 15.8 ABG Base Excess 6.3 H ABG Hemoglobin 11.7 ABG Carboxyhemoglobin 1.5 POC ABG HHb (Measured) 1.5 ABG Methemoglobin 1.4 ABG O2 Capacity 16.0 Jay Test Yes ABG Potassium A-a O2 Difference 159.0 Hgb O2 Saturation 95.7 Glucose Lactate Vent Mode Prvc ac Mechanical Rate 18 FiO2 40.0 Tidal Volume 500 PEEP 5 Crit Value Called To Crit Value Called By Crit Value Read Back Blood Gas Notified Time Sodium Potassium Chloride Carbon Dioxide Anion Gap BUN Creatinine Est GFR ( Amer) Est GFR (Non-Af Amer) POC Glucose (mg/dL) Random Glucose Calcium Phosphorus Magnesium Total Bilirubin AST ALT Alkaline Phosphatase Troponin I NT-Pro-B Natriuret Pep Total Protein Albumin Globulin Albumin/Globulin Ratio Arterial Blood Potassium Urine Color Urine Clarity Urine pH Ur Specific [place] Urine Protein Urine Glucose (UA) Urine Ketones Urine Blood Urine Nitrate Urine Bilirubin Urine Urobilinogen Ur Leukocyte Esterase Urine RBC (Auto) Urine Microscopic WBC Ur Squamous Epith Cells Ur Transition Epith Cell Urine Bacteria Influenza Typ A,B (EIA) 08/24/18 08/24/18 04:45 05:23 WBC RBC Hgb Hct MCV MCH MCHC RDW Plt Count MPV Neut % (Auto) Lymph % (Auto) [place] % (Auto) Eos % (Auto) Baso % (Auto) Neut # (Auto) Lymph # (Auto) [place] # (Auto) Eos # (Auto) Baso # (Auto) PT INR APTT pCO2 37 pO2 107 H HCO3 29.7 H ABG pH 7.51 H ABG Total CO2 30.6 H ABG O2 Saturation 98.5 H ABG O2 Content 15.8 ABG Base Excess 6.2 H ABG Hemoglobin 11.6 L ABG Carboxyhemoglobin 1.3 POC ABG HHb (Measured) 1.5 ABG Methemoglobin 1.2 ABG O2 Capacity 16.0 Jay Test Yes ABG Potassium A-a O2 Difference 132.0 Hgb O2 Saturation 96.1 Glucose Lactate Vent Mode A/c Mechanical Rate 14 FiO2 40.0 Tidal Volume 500 PEEP 5 Crit Value Called To Crit Value Called By Crit Value Read Back Blood Gas Notified Time Sodium 140 Potassium 3.9 Chloride 111 H Carbon Dioxide 24 Anion Gap 9 L BUN 24 H Creatinine 0.5 L Est GFR ( Amer) > 60 Est GFR (Non-Af Amer) > 60 POC Glucose (mg/dL) Random Glucose 173 H Calcium 6.8 L Phosphorus Magnesium Total Bilirubin AST ALT Alkaline Phosphatase Troponin I NT-Pro-B Natriuret Pep Total Protein Albumin Globulin Albumin/Globulin Ratio Arterial Blood Potassium Urine Color Urine Clarity Urine pH Ur Specific [place] Urine Protein Urine Glucose (UA) Urine Ketones Urine Blood Urine Nitrate Urine Bilirubin Urine Urobilinogen Ur Leukocyte Esterase Urine RBC (Auto) Urine Microscopic WBC Ur Squamous Epith Cells Ur Transition Epith Cell Urine Bacteria Influenza Typ A,B (EIA) Assessment & Plan - Assessment and Plan (Free Text) Assessment: Assessment: #. Acute on chronic hypocapneic Respiratory Failure #. COPD Exacerbation #. Dehydration #. IDDM with Hyperglycemia #. Hypothyroidism #. Leukocytosis Plan: # - Orotrachial Intubation with mechanical intubation, AC 500 VT Fio.50 PEEP : 5 - follow ABG #. COPD Exacerbation - Albuterol/Ipratropium - Methylprednisolone #. Dehydration - IV Fluids NS at 100 cc/h - follow Renal labs #. IDDM with Hyperglycemia - levemir - Lispro sliding scale according to accucheck #. Hypothyroidism - Levothyroxin #. Leukocytosis probably due to the Steroids that the patient was taking #. DVT prophylaxis with SCD and lovenox
[2018-08-24] MEDS: Insulin Regular 100 units/ml SC SCH ×3 (12:22→22:00)
[2018-08-24] MEDS: Propofol 10 mg/ml 1,000 MG/100 ML VIAL IV SCH ×2 (14:28→20:05)
--- NOTE | 2018-08-24 14:36 | RAD ---
Date of service: 08/24/2018 HISTORY: ETT placement COMPARISON: No prior. FINDINGS: LUNGS: No active pulmonary disease. PLEURA: No significant pleural effusion identified, no pneumothorax apparent. CARDIOVASCULAR: No aortic atherosclerotic calcification present. Normal cardiac size. No pulmonary vascular congestion. OSSEOUS STRUCTURES: No significant abnormalities. VISUALIZED UPPER ABDOMEN: Normal. OTHER FINDINGS: Tubes and catheters unchanged. IMPRESSION: No active disease.
[2018-08-24] MEDS ORDERED: Fentanyl Citrate 2,500 MCG in Dextrose 5% In Water 200 ML IV SCH (16:30)
[2018-08-24] MEDS: Fentanyl Citrate 2,500 MCG in Dextrose 5% In Water 200 ML IV SCH (17:00)
[2018-08-24] MEDS ORDERED: Propofol 10 mg/ml 1,000 MG/100 ML VIAL IV SCH (22:15)
[2018-08-25] MEDS: Propofol 10 mg/ml 1,000 MG/100 ML VIAL IV SCH ×3 (02:27→16:35)
[2018-08-25] MEDS: Albuterol-Ipratrop 3 mg / 0.5 (3 ml) UD INH SCH ×5 (05:20→19:12)
[2018-08-25] MEDS: Insulin Regular 100 units/ml SC SCH ×4 (05:31→22:30)
[2018-08-25] MEDS: Levothyroxine 150 MCG TAB PO SCH (05:33)
[2018-08-25] MEDS: Fentanyl Citrate 2,500 MCG in Dextrose 5% In Water 200 ML IV SCH ×2 (05:40→16:36)
[2018-08-25] MEDS: Sodium Chloride 0.9% 1,000 ML IV SCH ×3 (06:20→22:32)
[2018-08-25 08:09] LABS: HEMOGLOBIN 10.6 g/dL (12.0-16.0); MEAN CELL VOLUME 87.6 fl (81.0-99.0); MEAN CORPUSCULAR HEMOGLOBIN 27.3 pg (27.0-31.0); MEAN CORPUSCULAR HGB CONC 31.1 g/dL (33.0-37.0); RBC 3.87 Mil/uL (3.80-5.20); RED CELL DISTRIBUTION WIDTH 16.9 % (11.5-14.5); WHITE BLOOD COUNT 11.5 K/uL (4.8-10.8)
[2018-08-25 08:28] LABS: ALB/GLOB RATIO 1.2 (1.0-2.1); ALBUMIN 3.1 g/dL (3.5-5.0); ALT/SGPT 46 U/L (9-52); AST/SGOT 13 U/L (14-36); BLOOD UREA NITROGEN 26 mg/dl (7-17); CALCIUM 8.1 mg/dL (8.4-10.2); GFR NON-AFRICAN AMERICAN > 60
--- NOTE | 2018-08-25 08:43 | RAD ---
Date of service: 08/25/2018 HISTORY: vented COMPARISON: 08/24/2018 FINDINGS: LUNGS: Left lower lobe infiltrate and/or effusion. PLEURA: No significant pleural effusion identified, no pneumothorax apparent. CARDIOVASCULAR: No aortic atherosclerotic calcification present. Normal cardiac size. No pulmonary vascular congestion. OSSEOUS STRUCTURES: No significant abnormalities. VISUALIZED UPPER ABDOMEN: Normal. OTHER FINDINGS: ETT above the bigg. NG tube in the stomach. Right MediPort catheter tip in the SVC. IMPRESSION: No significant change.
--- NOTE | 2018-08-25 09:23 | CP.CCUPN ---
CCU Subjective - Physician Review Events Since Last Encounter (Free Text): 08/25/18 09:19 sedated, intubated, Needed higher dose of sedation fentanyl, to keep her calm CXR and labs reviewed, ABG reviewed, definite improvement and blood gases and CXR CCU Objective - Vital Signs / Intake & Output Vital Signs (Last 4 hours): Vital Signs Temp Pulse Resp BP Pulse Ox 08/25/18 08:49 79 160/89 H 08/25/18 08:48 73 160/89 H 08/25/18 08:47 71 160/89 H 08/25/18 08:00 98.7 F 80 14 160/89 H 99 08/25/18 07:00 67 15 149/85 100 08/25/18 06:00 66 15 149/85 100 Intake and Output (Last 8hrs): Intake & Output 08/24/18 08/25/18 08/25/18 23:59 06:59 14:59 Intake Total 100 Output Total Balance 100 Weight Intake: IV 100 Free Water Flush Output: Urine Urethral (Haddad) - Physical Exam Narrative Physical Exam (Free Text): 08/25/18 09:20 P/E Neck: No JVD Lungs: Rt basal crackles Abdomen: soft, BS +ve heart: No gallop Ext: No edema - Medications Active Medications: Active Medications Generic Name Dose Route Start Last Admin Trade Name Freq PRN Reason Stop Dose Admin Acetaminophen 325 mg 08/24/18 02:53 Tylenol 325mg Tab PO Q4H PRN Pain, Mild (1-3) Albuterol/Ipratropium 3 ml 08/24/18 04:00 08/25/18 07:59 Duoneb 3 Mg/0.5 Mg (3 Ml) Ud INH 3 ml RQ4 MALOU Administration Albuterol/Ipratropium 3 ml 08/24/18 02:45 Duoneb 3 Mg/0.5 Mg (3 Ml) Ud INH RQ2 PRN Shortness of Breath Amlodipine Besylate 10 mg 08/24/18 09:00 08/25/18 08:48 Norvasc PO 10 mg DAILY MALOU Administration Atorvastatin Calcium 5 mg 08/24/18 22:00 08/24/18 21:41 Lipitor PO 5 mg HS MALUO Administration Gabapentin 300 mg 08/24/18 09:00 08/25/18 08:48 Neurontin PO 300 mg BID MALOU Administration Sodium Chloride 1,000 mls @ 100 mls/hr 08/23/18 23:46 08/25/18 06:20 Sodium Chloride 0.9% IV 100 mls/hr .Q10H MALOU Administration Fentanyl Citrate 2,500 mcg/ 250 mls @ 6.83 mls/hr 08/24/18 17:00 08/25/18 05:40 Dextrose IV 1.5 mcg/kg/hr .Q24H MALOU 20.48 mls/hr Administration Protocol 0.5 MCG/KG/HR Propofol 1,000 mg in 100 mls @ 4.096 mls/hr 08/25/18 02:15 08/25/18 09:06 Diprivan IV 08/26/18 02:06 20 mcg/kg/min .Q24H MALOU 16.384 mls/hr Administration Protocol 5 MCG/KG/MIN Insulin Human Regular 0 units 08/24/18 12:30 08/25/18 05:31 Humulin R SC 2 units 0500,1100,1700,2300 MALOU Administration Protocol Levothyroxine Sodium 150 mcg 08/24/18 06:30 08/25/18 05:33 Synthroid PO 150 mcg DAILY@0630 [facility] Administration Lisinopril 2.5 mg 08/24/18 09:00 08/25/18 08:49 Zestril PO 2.5 mg DAILY [facility]OU Administration Methylprednisolone 60 mg 08/24/18 04:00 08/25/18 09:05 Solu-Medrol IV 60 mg Q6 MALOU Administration Metoprolol Tartrate 25 mg 08/24/18 09:00 08/25/18 08:47 Lopressor PO 25 mg BID MALOU Administration Montelukast Sodium 10 mg 08/24/18 22:00 08/24/18 21:40 Singulair PO 10 mg HS MALOU Administration - Patient Studies Lab Studies: Microbiology Studies 08/23/18 18:40 Urine Culture - Final Urine No Growth (<1,000 CFU/ML) 08/23/18 18:30 Blood Culture - Preliminary Blood NO GROWTH AFTER 24 HOURS 08/23/18 18:45 Blood Culture - Preliminary Blood NO GROWTH AFTER 24 HOURS Lab Studies 08/25/18 08/25/18 08/25/18 Range/Units 06:00 06:00 05:01 WBC 11.5 H (4.8-10.8) K/uL RBC 3.87 (3.80-5.20) Mil/uL Hgb 10.6 L (12.0-16.0) g/dL Hct 33.9 L (34.0-47.0) % MCV 87.6 (81.0-99.0) fl MCH 27.3 (27.0-31.0) pg MCHC 31.1 L (33.0-37.0) g/dL RDW 16.9 H (11.5-14.5) % Plt Count 255 (130-400) K/uL Sodium 139 (132-148) mmol/l Potassium 3.7 (3.6-5.0) MMOL/L Chloride 105 (98-107) mmol/L Carbon Dioxide 24 (22-30) mmol/L Anion Gap 14 (10-20) BUN 26 H (7-17) mg/dl Creatinine 0.7 (0.7-1.2) mg/dl Est GFR ( Amer) > 60 Est GFR (Non-Af Amer) > 60 POC Glucose (mg/dL) 248 H (65-110) mg/dL Random Glucose 261 H (65-105) mg/dL Calcium 8.1 L (8.4-10.2) mg/dL Phosphorus 3.2 (2.5-4.5) mg/dl Magnesium 2.1 (1.6-2.3) MG/DL Total Bilirubin 0.2 (0.2-1.3) mg/dl AST 13 L D (14-36) U/L ALT 46 (9-52) U/L Alkaline Phosphatase 53 (38-126) U/L Total Protein 5.8 L (6.3-8.2) G/DL Albumin 3.1 L (3.5-5.0) g/dL Globulin 2.7 (2.2-3.9) gm/dL Albumin/Globulin Ratio 1.2 (1.0-2.1) 08/24/18 08/24/18 08/24/18 Range/Units 21:04 16:50 11:14 WBC (4.8-10.8) K/uL RBC (3.80-5.20) Mil/uL Hgb (12.0-16.0) g/dL Hct (34.0-47.0) % MCV (81.0-99.0) fl MCH (27.0-31.0) pg MCHC (33.0-37.0) g/dL RDW (11.5-14.5) % Plt Count (130-400) K/uL Sodium (132-148) mmol/l Potassium (3.6-5.0) MMOL/L Chloride (98-107) mmol/L Carbon Dioxide (22-30) mmol/L Anion Gap (10-20) BUN (7-17) mg/dl Creatinine (0.7-1.2) mg/dl Est GFR ( Amer) Est GFR (Non-Af Amer) POC Glucose (mg/dL) 210 H 211 H 203 H (65-110) mg/dL Random Glucose (65-105) mg/dL Calcium (8.4-10.2) mg/dL Phosphorus (2.5-4.5) mg/dl Magnesium (1.6-2.3) MG/DL Total Bilirubin (0.2-1.3) mg/dl AST (14-36) U/L ALT (9-52) U/L Alkaline Phosphatase (38-126) U/L Total Protein (6.3-8.2) G/DL Albumin (3.5-5.0) g/dL Globulin (2.2-3.9) gm/dL Albumin/Globulin Ratio (1.0-2.1) Laboratory Results - last 24 hr 08/24/18 08/24/18 08/24/18 11:14 16:50 21:04 WBC RBC Hgb Hct MCV MCH MCHC RDW Plt Count Sodium Potassium Chloride Carbon Dioxide Anion Gap BUN Creatinine Est GFR ( Amer) Est GFR (Non-Af Amer) POC Glucose (mg/dL) 203 H 211 H 210 H Random Glucose Calcium Phosphorus Magnesium Total Bilirubin AST ALT Alkaline Phosphatase Total Protein Albumin Globulin Albumin/Globulin Ratio 08/25/18 08/25/18 08/25/18 05:01 06:00 06:00 WBC 11.5 H RBC 3.87 Hgb 10.6 L Hct 33.9 L MCV 87.6 MCH 27.3 MCHC 31.1 L RDW 16.9 H Plt Count 255 Sodium 139 Potassium 3.7 Chloride 105 Carbon Dioxide 24 Anion Gap 14 BUN 26 H Creatinine 0.7 Est GFR ( Amer) > 60 Est GFR (Non-Af Amer) > 60 POC Glucose (mg/dL) 248 H Random Glucose 261 H Calcium 8.1 L Phosphorus 3.2 Magnesium 2.1 Total Bilirubin 0.2 AST 13 L D ALT 46 Alkaline Phosphatase 53 Total Protein 5.8 L Albumin 3.1 L Globulin 2.7 Albumin/Globulin Ratio 1.2 Fingerstick Blood Sugar Results: 248 Critical Care Progress Note - Nutrition Nutrition: Nutrition Category Date Time Status NPO Diet [DIET] Diets 08/23/18 Dinner Active Assessment/Plan - Assessment and Plan (Free Text) Assessment: Assessment: #. Acute on chronic hypocapneic Respiratory Failure #. COPD Exacerbation #. Dehydration : improved #. IDDM with Hyperglycemia : controlled #. Hypothyroidism #. Leukocytosis Plan: - Orotrachial Intubation with mechanical intubation, , ABG showing improvement, will be a slow weaning, will switch to CPAP currently on AC 500 VT Fio.50 PEEP : 5 #. COPD Exacerbation - Albuterol/Ipratropium - Methylprednisolone #. Dehydration - IV Fluids NS at 100 cc/h , will continue - #. IDDM with Hyperglycemia - levemir - Lispro sliding scale according to accucheck #. Hypothyroidism - Levothyroxin #. Leukocytosis probably due to the Steroids that the patient was taking #. DVT prophylaxis with SCD and lovenox
[2018-08-25] MEDS ORDERED: Insulin Detemir 100 Units/ml Inj SC STA (11:10)
--- NOTE | 2018-08-25 11:14 | CP.PCM.PN ---
Subjective - Date & Time of Evaluation Date of Evaluation: 08/25/18 Time of Evaluation: 10:30 - Subjective Subjective: Remains intubated on Vent on both Propofol and Fentanyl for sedation as pt was still awake despite max dose of Propofol Blood c/s came back + for Gram + Cocci afebrile however with leukocytosis Pt has Portacath placed in June due to difficult IV access Objective - Vital Signs/Intake and Output Vital Signs (last 24 hours): Temp Pulse Resp BP Pulse Ox 98.7 F 79 14 160/89 H 99 08/25/18 08:00 08/25/18 08:49 08/25/18 08:00 08/25/18 08:49 08/25/18 08:00 Intake and Output: 08/25/18 08/25/18 06:59 18:59 Intake Total 100 Output Total Balance 100 - Medications Medications: Current Medications Acetaminophen (Tylenol 325mg Tab) 325 mg PO Q4H PRN PRN Reason: Pain, Mild (1-3) Albuterol/Ipratropium (Duoneb 3 Mg/0.5 Mg (3 Ml) Ud) 3 ml INH RQ4 [facility] Last Admin: 08/25/18 07:59 Dose: 3 ml Albuterol/Ipratropium (Duoneb 3 Mg/0.5 Mg (3 Ml) Ud) 3 ml INH RQ2 PRN PRN Reason: Shortness of Breath Amlodipine Besylate (Norvasc) 10 mg PO DAILY [facility] Last Admin: 08/25/18 08:48 Dose: 10 mg Atorvastatin Calcium (Lipitor) 5 mg PO HS [facility] Last Admin: 08/24/18 21:41 Dose: 5 mg Gabapentin (Neurontin) 300 mg PO BID [facility] Last Admin: 08/25/18 08:48 Dose: 300 mg Sodium Chloride (Sodium Chloride 0.9%) 1,000 mls @ 100 mls/hr IV .Q10H [facility] Last Admin: 08/25/18 06:20 Dose: 100 mls/hr Fentanyl Citrate 2,500 mcg/ (Dextrose) 250 mls @ 6.83 mls/hr IV .Q24H [facility]; P rotocol Last Admin: 08/25/18 05:40 Dose: 1.5 mcg/kg/hr, 20.48 mls/hr Propofol (Diprivan) 1,000 mg in 100 mls @ 4.096 mls/hr IV .Q24H [facility]; Protocol Stop: 08/26/18 02:06 Last Admin: 08/25/18 09:06 Dose: 20 mcg/kg/min, 16.384 mls/hr Vancomycin HCl 1.25 gm/ Sodium (Chloride) 250 mls @ 166.667 mls/hr IVPB Q12 [facility]; Protocol Insulin Detemir (Levemir) 30 units SC [facility] Insulin Detemir (Levemir) 6 units SC [facility] Stop: 08/25/18 11:11 Insulin Human Regular (Humulin R) 0 units SC 0500,1100,1700,2300 [facility]; Protocol Last Admin: 08/25/18 05:31 Dose: 2 units Levothyroxine Sodium (Synthroid) 150 mcg PO DAILY@0630 [facility] Last Admin: 08/25/18 05:33 Dose: 150 mcg Lisinopril (Zestril) 2.5 mg PO DAILY [facility] Last Admin: 08/25/18 08:49 Dose: 2.5 mg Methylprednisolone (Solu-Medrol) 60 mg IV Q6 [facility] Last Admin: 08/25/18 09:05 Dose: 60 mg Metoprolol Tartrate (Lopressor) 25 mg PO BID [facility] Last Admin: 08/25/18 08:47 Dose: 25 mg Montelukast Sodium (Singulair) 10 mg PO [facility] Last Admin: 08/24/18 21:40 Dose: 10 mg - Labs Labs: 08/25/18 06:00 08/25/18 06:00 PT 10.6 Seconds (9.8-13.1) 08/23/18 18:55 INR 0.9 08/23/18 18:55 APTT 30.6 Seconds (25.6-37.1) 08/23/18 18:55 - Constitutional Appears: Other (Intubated on Vent, Sedated) - Head Exam Head Exam: NORMAL INSPECTION, NORMOCEPHALIC - ENT Exam ENT Exam: Mucous Membranes Dry, Normal External Ear Exam - Neck Exam Neck Exam: absent: Meningismus - Respiratory Exam Respiratory Exam: Rales, Rhonchi, Wheezes Additional comments: Intubated on Vent - Cardiovascular Exam Cardiovascular Exam: REGULAR RHYTHM, +S1, +S2 - GI/Abdominal Exam GI & Abdominal Exam: Soft, Normal Bowel Sounds - Extremities Exam Extremities Exam: Normal Capillary Refill - Neurological Exam Additional comments: Sedated - Skin Skin Exam: Normal Color, Warm Assessment and Plan - Assessment and Plan (Free Text) Assessment: 72 years old patient from the [facility],with hx of morbid obesity, Sleep Apnea, Probably obesity hypoventilation, COPD and DM II insulin requiring, discharged 08/21/18 from [facility], Dx COPD exacerbation with intubation. She comes with one day of SOB and Altered mental status. In the ED he PCO2 was 120 and pH of 7.14. She was intubated immediately. Blood pressure fell post intubation but improved with IV fluids. 1. Acute on chronic hypercapneic Respiratory Failure sec to COPD exacerbation and OHS - Pt is intubated on [facility] Vent 14/500/5/40% - Consulted Pulmonary Dr Duong -Karel tx - cont IV Solumedrol 2. COPD Exacerbation -cont Albuterol/Ipratropium - cont Methylprednisolone 3. Bacteremia Gram positive Cocci + on Blood cultures x 2 Start IV Vanco 1.25 g IV q 12 ID consult Discussed case with Dr Ellis- rec to rpt Blood c/s , may need to remoce Portacath if Blood c/s + rpt CXR Pt had leukocytosis 17k on admission 4. Dehydration - improved with IV Fluids 5.DM type II with Hyperglycemia, Insulin Use - start levemir - Lispro sliding scale according to accucheck - start Tube feeding with Glucerna 6. Hypothyroidism - cont Levothyroxine - check TSH #. DVT prophylaxis with SCD and lovenox #. Code Status: Full
--- NOTE | 2018-08-25 12:41 | CP.PCM.CON ---
History of Present Illness - History of Present Illness History of Present Illness: Patient seen yesterday; could not write the consult because I could not connect to the [employer] system. ARF B. Asthma / ? COPD ex. Morbid Obesity. WES/OHVS Chronic Medical Conditions. S/Patient intubated. O/ Afebrile. VSS. Head Neg adeno Heart NS1S2, Neg M Lungs: Exp Rhonchi and Wheezing. No C,C 1 to 2+ Edema of LE Neuro: Sedated. a/p Was found to be on CPAP. No plans extubation tonight. Would place on PRVC since patient may tire out on current settings. Place on CPAP in AM and assess HD status, Resp Status, and ABG. Seems like she may be a very difficult extubation giving body habitus. Cont Steroids, Bronchodilators. Avoid Hyperoxia. PUD and DVT Px. Cont care as per [employer]. Past Patient History - Infectious Disease Hx of Infectious Diseases: None - Tetanus Immunizations Tetanus Immunization: Unknown - Past Medical History & Family History Past Medical History?: Yes - Past Social History Smoking Status: Unknown If Ever Smoked Chewing Tobacco Use: No Cigar Use: No Alcohol: None Drugs: Denies Home Situation {Lives}: Fpc - CARDIAC Hx Hypertension: Yes - PULMONARY Hx Chronic Obstructive Pulmonary Disease (COPD): Yes Hx Sleep Apnea: Yes (on Bipap) - NEUROLOGICAL Hx Dementia: Yes Hx Parkinson's Disease: Yes - HEENT Hx HEENT Problems: No - RENAL Hx Chronic Kidney Disease: No - ENDOCRINE/METABOLIC Hx Hypothyroidism: Yes - HEMATOLOGICAL/ONCOLOGICAL Hx Anemia: Yes - INTEGUMENTARY Hx Dermatological Problems: No - MUSCULOSKELETAL/RHEUMATOLOGICAL Hx Arthritis: Yes - GASTROINTESTINAL Hx Gastrointestinal Disorders: Yes Hx Constipation: Yes Hx Gastroesophageal Reflux: Yes - GENITOURINARY/GYNECOLOGICAL Hx Genitourinary Disorders: Yes Hx Incontinence: Yes Hx Urinary Tract Infection: Yes - PSYCHIATRIC Hx Anxiety: Yes Hx Bipolar Disorder: Yes Hx Depression: Yes - SURGICAL HISTORY Hx Surgeries: Yes Hx Hysterectomy: Yes Hx Orthopedic Surgery: Yes Other/Comment: right knee replacement 2014; right knee prosthesis removal s/p infection 2015 - ANESTHESIA Hx Anesthesia: Yes Hx Anesthesia Reactions: No Hx Malignant Hyperthermia: No Meds Allergies/Adverse Reactions: Allergies Allergy/AdvReac Type Severity Reaction Status Date / Time Cephalosporins Allergy Intermediate RASH Verified 08/16/18 01:23 Penicillins Allergy Intermediate RASH Verified 08/16/18 01:23 clonazepam [From Klonopin] Allergy Verified 08/16/18 01:23 mustard Allergy Intermediate RASH Uncoded 08/16/18 01:23 - Medications Medications: Current Medications Acetaminophen (Tylenol 325mg Tab) 325 mg PO Q4H PRN PRN Reason: Pain, Mild (1-3) Albuterol/Ipratropium (Duoneb 3 Mg/0.5 Mg (3 Ml) Ud) 3 ml INH RQ4 [facility] Last Admin: 08/25/18 11:48 Dose: 3 ml Albuterol/Ipratropium (Duoneb 3 Mg/0.5 Mg (3 Ml) Ud) 3 ml INH RQ2 PRN PRN Reason: Shortness of Breath Amlodipine Besylate (Norvasc) 10 mg PO DAILY [facility] Last Admin: 08/25/18 08:48 Dose: 10 mg Atorvastatin Calcium (Lipitor) 5 mg PO HS [facility] Last Admin: 08/24/18 21:41 Dose: 5 mg Enoxaparin Sodium (Lovenox) 40 mg SC DAILY [facility]; Protocol Gabapentin (Neurontin) 300 mg PO BID [facility] Last Admin: 08/25/18 08:48 Dose: 300 mg Sodium Chloride (Sodium Chloride 0.9%) 1,000 mls @ 100 mls/hr IV .Q10H [facility] Last Admin: 08/25/18 06:20 Dose: 100 mls/hr Fentanyl Citrate 2,500 mcg/ (Dextrose) 250 mls @ 6.83 mls/hr IV .Q24H [facility]; Protocol Last Admin: 08/25/18 05:40 Dose: 1.5 mcg/kg/hr, 20.48 mls/hr Propofol (Diprivan) 1,000 mg in 100 mls @ 4.096 mls/hr IV .Q24H [facility]; Protocol Stop: 08/26/18 02:06 Last Admin: 08/25/18 09:06 Dose: 20 mcg/kg/min, 16.384 mls/hr Vancomycin HCl 1.25 gm/ Sodium (Chloride) 250 mls @ 166.667 mls/hr IVPB Q12H [facility]; Protocol Insulin Detemir (Levemir) 30 units SC HS [facility] Insulin Human Regular (Humulin R) 0 units SC 0500,1100,1700,2300 [facility]; Protocol Last Admin: 08/25/18 05:31 Dose: 2 units Levothyroxine Sodium (Synthroid) 150 mcg PO DAILY@0630 [facility] Last Admin: 08/25/18 05:33 Dose: 150 mcg Lisinopril (Zestril) 2.5 mg PO DAILY [facility] Last Admin: 08/25/18 08:49 Dose: 2.5 mg Methylprednisolone (Solu-Medrol) 60 mg IV Q6 [facility] Last Admin: 08/25/18 09:05 Dose: 60 mg Metoprolol Tartrate (Lopressor) 25 mg PO BID [facility] Last Admin: 08/25/18 08:47 Dose: 25 mg Montelukast Sodium (Singulair) 10 mg PO HS [facility] Last Admin: 08/24/18 21:40 Dose: 10 mg Results - Vital Signs Recent Vital Signs: Last Vital Signs Temp 98.7 F 08/25/18 08:00 Pulse 66 08/25/18 11:00 Resp 14 08/25/18 11:00 BP 118/54 L 08/25/18 11:00 Pulse Ox 100 08/25/18 11:00 - Labs Result Diagrams: 08/25/18 06:00 08/25/18 06:00 Labs: Laboratory Results - last 24 hr 08/24/18 08/24/18 08/24/18 11:14 16:50 21:04 WBC RBC Hgb Hct MCV MCH MCHC RDW Plt Count Sodium Potassium Chloride Carbon Dioxide Anion Gap BUN Creatinine Est GFR ( Amer) Est GFR (Non-Af Amer) POC Glucose (mg/dL) 203 H 211 H 210 H Random Glucose Calcium Phosphorus Magnesium Total Bilirubin AST ALT Alkaline Phosphatase Total Protein Albumin Globulin Albumin/Globulin Ratio TSH 3rd Generation 08/25/18 08/25/18 08/25/18 05:01 06:00 06:00 WBC 11.5 H RBC 3.87 Hgb 10.6 L Hct 33.9 L MCV 87.6 MCH 27.3 MCHC 31.1 L RDW 16.9 H Plt Count 255 Sodium 139 Potassium 3.7 Chloride 105 Carbon Dioxide 24 Anion Gap 14 BUN 26 H Creatinine 0.7 Est GFR ( Amer) > 60 Est GFR (Non-Af Amer) > 60 POC Glucose (mg/dL) 248 H Random Glucose 261 H Calcium 8.1 L Phosphorus 3.2 Magnesium 2.1 Total Bilirubin 0.2 AST 13 L D ALT 46 Alkaline Phosphatase 53 Total Protein 5.8 L Albumin 3.1 L Globulin 2.7 Albumin/Globulin Ratio 1.2 TSH 3rd Generation 08/25/18 11:30 WBC RBC Hgb Hct MCV MCH MCHC RDW Plt Count Sodium Potassium Chloride Carbon Dioxide Anion Gap BUN Creatinine Est GFR ( Amer) Est GFR (Non-Af Amer) POC Glucose (mg/dL) Random Glucose Calcium Phosphorus Magnesium Total Bilirubin AST ALT Alkaline Phosphatase Total Protein Albumin Globulin Albumin/Globulin Ratio TSH 3rd Generation 0.49
--- NOTE | 2018-08-25 13:10 | CP.PCM.CON ---
History of Present Illness - History of Present Illness History of Present Illness: 72 year old female [facility] with recurrent COPD exacerbation. senior care staff also noticed the patient was increasingly confused and lethargic. Patient was put on BiPAP for hypercapnic respiratory distress. Now intubated and ID consulted for antibiotic management Blood cultures + for Gram Positive cocci in 2/2 sets PMHx: HTN, COPD, Anemia, Anxiety, Arthritis, Bipolar disorder, Dementia, Depression, Parkinson, Hyperthyroidism and Sleep Apnea Surgical Hx: Hysterectomy, Right knee fusion, Oophorectomy (unknown location), Uterine/ovarian cyst removal, C- sections (unknown). FMHx: Mother - HTN, breast cysts. Meds: Prednisone, Norvasc, Metoprolol, Lisinopril, Lasix, Crestor, Mysoline, Duoneb, Singulair, Carbi/levodopa, Azelastine, Aspirin Allergies: Cephalosporins, Penicillins, Clonazepam, Mustard Social History: Lives in [facility]. Former smoker of 5 cigarettes per day for 40 years, quit 10 years ago. Denies alcohol and illicit drug use. Review of Systems - Review of Systems All systems: reviewed and no additional remarkable complaints except - Constitutional Constitutional: As Per HPI - EENT Eyes: absent: As Per HPI, Blind Spots, Blurred Vision, Change in Vision, Decreased Night Vision, Diplopia, Discharge, Dry Eye, Exophthalmos, Floaters, Irritation, Itchy Eyes, Loss of Peripheral Vision, Pain, Photophobia, Requires Corrective Lenses, Sees Flashes, Spots in Vision, Tunnel Vision, Other Visual Disturbances, Loss of Vision, Other Ears: absent: As Per HPI, Decreased Hearing, Ear Discharge, Ear Pain, Tinnitus, Abnormal Hearing, Disequilibrium, Dizziness, Other Nose/Mouth/Throat: absent: As Per HPI, Epistaxis, Nasal Congestion, Nasal Discharge, Nasal Obstruction, Nasal Trauma, Nose Pain, Post Nasal Drip, Sinus Pain, Sinus Pressure, Bleeding Gums, Change in Voice, Dental Pain, Dry Mouth, Dysphagia, Halitosis, Hoarsness, Lip Swelling, Mouth Lesions, Mouth Pain, Odynophagia, Sore Throat, Throat Swelling, Tongue Swelling, Facial Pain, Neck Pain, Neck Mass, Other - Breasts Breasts: absent: As Per HPI, Change in Shape, Mass, Pain, Nipple Discharge, Nipple Inversion, Skin Changes, Swelling, Other - Cardiovascular Cardiovascular: As Per HPI - Respiratory Respiratory: Cough, Dyspnea, Wheezing. absent: Hemoptysis - Gastrointestinal Gastrointestinal: absent: As Per HPI, Abdominal Pain, Belching, Bloating, Change in Bowel Habits, Change in Stool Character, Coffee Ground Emesis, Constipation, Cramping, Diarrhea, Dyspepsia, Dysphagia, Early Satiety, Excessive Flatus, Fecal Incontinence, Heartburn, Hematemesis, Hematochezia, Loose Stools, Melena, Nausea, Odynophagia, Temesmus, Vomiting, Other - Genitourinary Genitourinary: absent: As Per HPI, Change in Urinary Stream, Difficulty Urinating, Dysuria, Flank Pain, Hematuria, Pyuria, Nocturia, Urinary Incontin ence, Urinary Frequency, Urinary Hesitance, Urinary Urgency, Voiding Freq/Small Amts, Freq UTI, Hx Renal/Bladder Calculi, Hx /Renal Surgery, Bladder Distension, Other - Reproductive: Female Reproductive:Female: absent: As Per HPI, Amenorrhea, Amenorrhea/ Control, Currently Menstual, Cycle <21 Days, Cycle >35 Days, Cycle Variable, Menses 1-7 Days, Menses >/= 8 Days, Menses Variable, Cycle > 4 Weeks Between, No Menses for 6 Months, Heavy Menses, Light Menses, Normal Menses, Spotting Between Cycles, S/P Hysterectomy, Menopausal, Post Menopausal, Premenarche, Abnormal Vaginal Bleeding, Dysmenorrhea, Dyspareunia, Genital Lesions, Genital Pruritis, Pelvic Pain, Prolapse Symptoms, Sexual Dysfunction, Vaginal Discharge, Vaginal Dryness, Vaginal Odor, Vaginal Pruritis, Other - Menstruation Menstruation: absent: As Per HPI, Amenorrhea, Amenorrhea/ Control, Currently Menstual, Cycle <21 Days, Cycle >35 Days, Cycle Variable, Menses 1-7 Days, Menses >/= 8 Days, Menses Variable, Cycle > 4 Weeks Between, No Menses for 6 Months, Heavy Menses, Light Menses, Normal Menses, Spotting Between Cycles, S/P Hysterectomy, Menopausal, Post Menopausal, Premenarche, Abnormal Vaginal Bleeding, Dysmenorrhea, Other - Musculoskeletal Musculoskeletal: absent: As Per HPI, Abnormal Gait, Arthralgias, Atrophy, Back Pain, Deformity, Joint Swelling, Limited Range of Motion, Loss of Height, Muscle Cramps, Muscle Weakness, Myalgias, Neck Pain, Numbness, Radiating Pain into Limb, Stiffness, Tingling, Other - Integumentary Integumentary: absent: As Per HPI, Acne, Alopecia, Bleeding Lesions, Change in Hair, Change in Nails, Change in Pigmentation, Changing Lesions, Dry Skin, Erythema, Furuncle, Hirsutism, Lesions, New Lesions, Non-Healing Lesions, Photosensitivity, Pruritus, Rash, Skin Pain, Skin Ulcer, Sores, Striae, Swelling, Unusual Bruising, Wounds, Jaundice, Other - Neurological Neurological: absent: As Per HPI, Abnormal Gait, Abnormal Hearing, Abnormal Movements, Abnormal Speech, Behavioral Changes, Burning Sensations, Confusion, Convulsions, Disequilibrium, Dizziness, Numbness, Focal Weakness, Frequent Falls, Headaches, Lack of Coordination, Loss of Vision, Memory Loss, Paresthesias, Radicular Pain, Restless Legs, Sensory Deficit, Syncope, Tingling, Tremor, Vertigo, Weakness, Other Visual Disturbances, Other - Psychiatric Psychiatric: absent: As Per HPI, Abnormal Sleep Pattern, Anhedonia, Anxiety, Auditory Hallucinations, Behavioral Changes, Change in Appetite, Change in Libido, Confusion, Depression, Difficulty Concentrating, Hallucinations, H omicidal Ideation, Hopelessness, Irritability, Memory Loss, Mood Swings, Panic Attacks, Paranoia, Suicidal Ideation, Visual Hallucinations, Tactile Hallucinations, Other - Endocrine Endocrine: absent: As Per HPI, Change in Body Appearance, Change in Libido, Cold Intolorance, Deepening of Voice, Excessive Sweating, Fatigue, Flushing, Heat Intolorance, Increase in Ring/Shoe/Hat Size, Palpitations, Polydipsia, Polyphagia, Polyuria, Other - Hematologic/Lymphatic Hematologic: absent: As Per HPI, Easy Bleeding, Easy Bruising, Lymphadenopathy, Other Past Patient History - Infectious Disease Hx of Infectious Diseases: None - Tetanus Immunizations Tetanus Immunization: Unknown - Past Medical History & Family History Past Medical History?: Yes - Past Social History Smoking Status: Unknown If Ever Smoked Chewing Tobacco Use: No Cigar Use: No Alcohol: None Drugs: Denies Home Situation {Lives}: Half-Way - CARDIAC Hx Hypertension: Yes - PULMONARY Hx Chronic Obstructive Pulmonary Disease (COPD): Yes Hx Sleep Apnea: Yes (on Bipap) - NEUROLOGICAL Hx Dementia: Yes Hx Parkinson's Disease: Yes - HEENT Hx HEENT Problems: No - RENAL Hx Chronic Kidney Disease: No - ENDOCRINE/METABOLIC Hx Hypothyroidism: Yes - HEMATOLOGICAL/ONCOLOGICAL Hx Anemia: Yes - INTEGUMENTARY Hx Dermatological Problems: No - MUSCULOSKELETAL/RHEUMATOLOGICAL Hx Arthritis: Yes - GASTROINTESTINAL Hx Gastrointestinal Disorders: Yes Hx Constipation: Yes Hx Gastroesophageal Reflux: Yes - GENITOURINARY/GYNECOLOGICAL Hx Genitourinary Disorders: Yes Hx Incontinence: Yes Hx Urinary Tract Infection: Yes - PSYCHIATRIC Hx Anxiety: Yes Hx Bipolar Disorder: Yes Hx Depression: Yes - SURGICAL HISTORY Hx Surgeries: Yes Hx Hysterectomy: Yes Hx Orthopedic Surgery: Yes Other/Comment: right knee replacement 2014; right knee prosthesis removal s/p infection 2015 - ANESTHESIA Hx Anesthesia: Yes Hx Anesthesia Reactions: No Hx Malignant Hyperthermia: No Meds Allergies/Adverse Reactions: Allergies Allergy/AdvReac Type Severity Reaction Status Date / Time Cephalosporins Allergy Intermediate RASH Verified 08/16/18 01:23 Penicillins Allergy Intermediate RASH Verified 08/16/18 01:23 clonazepam [From Klonopin] Allergy Verified 08/16/18 01:23 mustard Allergy Intermediate RASH Uncoded 08/16/18 01:23 - Medications Medications: Current Medications Acetaminophen (Tylenol 325mg Tab) 325 mg PO Q4H PRN PRN Reason: Pain, Mild (1-3) Albuterol/Ipratropium (Duoneb 3 Mg/0.5 Mg (3 Ml) Ud) 3 ml INH RQ4 [facility] Last Admin: 08/25/18 11:48 Dose: 3 ml Albuterol/Ipratropium (Duoneb 3 Mg/0.5 Mg (3 Ml) Ud) 3 ml INH RQ2 PRN PRN Reason: Shortness of Breath Amlodipine Besylate (Norvasc) 10 mg PO DAILY [facility] Last Admin: 08/25/18 08:48 Dose: 10 mg Atorvastatin Calcium (Lipitor) 5 mg PO HS [facility] Last Admin: 08/24/18 21:41 Dose: 5 mg Enoxaparin Sodium (Lovenox) 40 mg SC DAILY [facility]; Protocol Gabapentin (Neurontin) 300 mg PO BID [facility] Last Admin: 08/25/18 08:48 Dose: 300 mg Sodium Chloride (Sodium Chloride 0.9%) 1,000 mls @ 100 mls/hr IV .Q10H [facility] Last Admin: 08/25/18 06:20 Dose: 100 mls/hr Fentanyl Citrate 2,500 mcg/ (Dextrose) 250 mls @ 6.83 mls/hr IV .Q24H [facility]; Protocol Last Admin: 08/25/18 05:40 Dose: 1.5 mcg/kg/hr, 20.48 mls/hr Propofol (Diprivan) 1,000 mg in 100 mls @ 4.096 mls/hr IV .Q24H [facility]; Protocol Stop: 08/26/18 02:06 Last Admin: 08/25/18 09:06 Dose: 20 mcg/kg/min, 16.384 mls/hr Vancomycin HCl 1.25 gm/ Sodium (Chloride) 250 mls @ 166.667 mls/hr IVPB Q12H [facility]; Protocol Last Admin: 08/25/18 12:59 Dose: 166.667 mls/hr Insulin Detemir (Levemir) [address] [facility] Insulin Human Regular (Humulin R) 0 units SC 0500,1100,1700,2300 [facility]; Protocol Last Admin: 08/25/18 12:57 Dose: 2 units Levothyroxine Sodium (Synthroid) 150 mcg PO DAILY@0630 [facility] Last Admin: 08/25/18 05:33 Dose: 150 mcg Lisinopril (Zestril) 2.5 mg PO DAILY [facility] Last Admin: 08/25/18 08:49 Dose: 2.5 mg Methylprednisolone (Solu-Medrol) 60 mg IV Q6 [facility] Last Admin: 08/25/18 09:05 Dose: 60 mg Metoprolol Tartrate (Lopressor) 25 mg PO BID [facility] Last Admin: 08/25/18 08:47 Dose: 25 mg Montelukast Sodium (Singulair) 10 [address] [facility] Last Admin: 08/24/18 21:40 Dose: 10 mg Physical Exam - Constitutional Appears: Non-toxic, Chronically Ill - Head Exam Head Exam: NORMOCEPHALIC - Eye Exam Eye Exam: PERRL. absent: Scleral icterus - ENT Exam ENT Exam: Mucous Membranes Dry - Neck Exam Neck exam: Negative for: Lymphadenopathy, Thyromegaly - Respiratory Exam Respiratory Exam: Decreased Breath Sounds, Prolonged Expiratory Phase, Rhonchi - Cardiovascular Exam Cardiovascular Exam: REGULAR RHYTHM, +S1, +S2 - GI/Abdominal Exam GI & Abdominal Exam: Diminished Bowel Sounds, Distended, Soft. absent: Tenderness - Rectal Exam Rectal Exam: Deferred - Exam Exam: NORMAL INSPECTION - Extremities Exam Extremities exam: Positive for: pedal edema, pedal pulses present. Negative for: calf tenderness, tenderness - Back Exam Back exam: absent: CVA tenderness (L), CVA tenderness (R) - Neurological Exam Neurological exam: Alert, CN II-XII Intact, Oriented x3, Reflexes Normal - Psychiatric Exam Psychiatric exam: Depressed - Skin Skin Exam: Dry Results - Vital Signs Recent Vital Signs: Last Vital Signs Temp 97.9 F 08/25/18 12:00 Pulse 63 08/25/18 12:00 Resp 14 08/25/18 12:00 BP 123/57 L 08/25/18 12:00 Pulse Ox 100 08/25/18 12:00 - Labs Result Diagrams: 08/25/18 06:00 08/25/18 06:00 Labs: Laboratory Results - last 24 hr 08/24/18 08/24/18 08/24/18 11:14 16:50 21:04 WBC RBC Hgb Hct MCV MCH MCHC RDW Plt Count Sodium Potassium Chloride Carbon Dioxide Anion Gap BUN Creatinine Est GFR ( Amer) Est GFR (Non-Af Amer) POC Glucose (mg/dL) 203 H 211 H 210 H Random Glucose Calcium Phosphorus Magnesium Total Bilirubin AST ALT Alkaline Phosphatase Total Protein Albumin Globulin Albumin/Globulin Ratio TSH 3rd Generation 08/25/18 08/25/18 08/25/18 05:01 06:00 06:00 WBC 11.5 H RBC 3.87 Hgb 10.6 L Hct 33.9 L MCV 87.6 MCH 27.3 MCHC 31.1 L RDW 16.9 H Plt Count 255 Sodium 139 Potassium 3.7 Chloride 105 Carbon Dioxide 24 Anion Gap 14 BUN 26 H Creatinine 0.7 Est GFR ( Amer) > 60 Est GFR (Non-Af Amer) > 60 POC Glucose (mg/dL) 248 H Random Glucose 261 H Calcium 8.1 L Phosphorus 3.2 Magnesium 2.1 Total Bilirubin 0.2 AST 13 L D ALT 46 Alkaline Phosphatase 53 Total Protein 5.8 L Albumin 3.1 L Globulin 2.7 Albumin/Globulin Ratio 1.2 TSH 3rd Generation 08/25/18 11:30 WBC RBC Hgb Hct MCV MCH MCHC RDW Plt Count Sodium Potassium Chloride Carbon Dioxide Anion Gap BUN Creatinine Est GFR ( Amer) Est GFR (Non-Af Amer) POC Glucose (mg/dL) Random Glucose Calcium Phosphorus Magnesium Total Bilirubin AST ALT Alkaline Phosphatase Total Protein Albumin Globulin Albumin/Globulin Ratio TSH 3rd Generation 0.49 Assessment & Plan (1) Bacteremia Status: Acute (2) Hypercapnic respiratory failure Status: Acute (3) COPD (chronic obstructive pulmonary disease) Status: Chronic (4) Acute respiratory acidosis Status: Acute Priority: High (5) Acute respiratory failure with hypercapnia Status: Acute Priority: High (6) Acute respiratory failure with hypoxia and hypercapnia Status: Acute (7) Altered mental status Status: Acute Priority: High - Assessment and Plan (Free Text) Assessment: + blood cultures severe COPD/ obesity hypoventilation syndrome' will repeat blood cultures Patient has a portacath- may be source? will repeat cultures May need port removal
[2018-08-25 14:15] LABS: ABG ALLEN TEST YES; ARTERIAL BLOOD GAS HCO3 26.5 mmol/L (21-28); ARTERIAL BLOOD GAS HEMOGLOBIN 11.1 g/dL (11.7-17.4); ARTERIAL BLOOD GAS O2 CAPACITY 15.3 mL/dL (16-24); ARTERIAL BLOOD GAS PCO2 33 mm/Hg (35-45); ARTERIAL BLOOD GAS PH 7.49 (7.35-7.45); ARTERIAL BLOOD GAS PO2 85 mm/Hg (80-100); ARTERIAL BLOOD GAS TCO2 26.1 mmol/L (22-28)
[2018-08-25] MEDS: Enoxaparin 40 mg Syringe SC SCH (16:40)
[2018-08-25] MEDS: Insulin Detemir 100 Units/ml Inj SC SCH (21:11)
[2018-08-26] MEDS: Albuterol-Ipratrop 3 mg / 0.5 (3 ml) UD INH SCH ×6 (00:21→19:25)
[2018-08-26] MEDS: Propofol 10 mg/ml 1,000 MG/100 ML VIAL IV SCH ×2 (04:07→17:02)
[2018-08-26] MEDS: Insulin Regular 100 units/ml SC SCH ×4 (05:10→22:09)
[2018-08-26 05:27] LABS: ABG ALLEN TEST YES; ARTERIAL BLOOD GAS HCO3 24.6 mmol/L (21-28); ARTERIAL BLOOD GAS HEMOGLOBIN 11.1 g/dL (11.7-17.4); ARTERIAL BLOOD GAS O2 CAPACITY 15.3 mL/dL (16-24); ARTERIAL BLOOD GAS O2 CONTENT 14.8 ML/dL (15-23); ARTERIAL BLOOD GAS O2 SAT 96.8 % (95-98); ARTERIAL BLOOD GAS PCO2 42 mm/Hg (35-45); ARTERIAL BLOOD GAS PH 7.38 (7.35-7.45); ARTERIAL BLOOD GAS PO2 79 mm/Hg (80-100); ARTERIAL BLOOD GAS TCO2 26.1 mmol/L (22-28)
[2018-08-26] MEDS: Levothyroxine 150 MCG TAB PO SCH (05:39)
[2018-08-26] MEDS: Fentanyl Citrate 2,500 MCG in Dextrose 5% In Water 200 ML IV SCH ×2 (05:44→18:23)
[2018-08-26 05:53] LABS: HEMOGLOBIN 11.1 g/dL (12.0-16.0); LYMPH # 0.8 K/uL (1.0-4.3); LYMPH % 6.6 % (20.0-40.0); MEAN CELL VOLUME 87.4 fl (81.0-99.0); MEAN CORPUSCULAR HEMOGLOBIN 27.6 pg (27.0-31.0); MEAN CORPUSCULAR HGB CONC 31.5 g/dL (33.0-37.0); MEAN PLATELET VOLUME 9.3 fl (7.2-11.7); MONO # 0.5 K/uL (0.0-0.8); MONO % 3.8 % (0.0-10.0); NEUT % 89.6 % (50.0-75.0); NRBC % 0.1 % (0.0-0.0); PLATELET COUNT 254 K/uL (130-400); RBC 4.02 Mil/uL (3.80-5.20); RED CELL DISTRIBUTION WIDTH 17.1 % (11.5-14.5); WHITE BLOOD COUNT 12.3 K/uL (4.8-10.8)
[2018-08-26 08:02] LABS: BLOOD UREA NITROGEN 29 mg/dl (7-17); CALCIUM 8.6 mg/dL (8.4-10.2); GFR NON-AFRICAN AMERICAN > 60
--- NOTE | 2018-08-26 08:17 | RAD ---
Date of service: 08/26/2018 HISTORY: Respiratory insufficiency. COMPARISON: Portable chest 08/25/2018. FINDINGS: LUNGS: Endotracheal and nasogastric tubes are not simply changed in position as well as right MediPort. Left base remains completely opacified with air bronchograms suspicious for infiltrate. Borderline right infrahilar/medial basilar airspace disease reiterated. PLEURA: Left pleural effusion is not excluded. No right pleural effusion. No pneumothorax bilaterally. CARDIOVASCULAR: Calcific atherosclerotic changes are seen related to the thoracic aorta. Normal cardiac size. No pulmonary vascular congestion. OSSEOUS STRUCTURES: No significant abnormalities. VISUALIZED UPPER ABDOMEN: Normal. OTHER FINDINGS: None. IMPRESSION: No signal change in dense airspace disease at the left base and limited right medial basilar airspace disease. No pleural effusion is not excluded. No definite pulmonary vascular congestion.
[2018-08-26] MEDS: Enoxaparin 40 mg Syringe SC SCH (09:26)
[2018-08-26 11:07] LABS: ANISOCYTOSIS SLIGHT; HYPOCHROMIC SLIGHT; LYMPHOCYTE 8 % (20-50); MONOCYTE 1 % (0-10); NEUTROPHIL 91 % (42-75); PLATELET ESTIMATE NORMAL (NORMAL); SCHISTOCYTES SLIGHT; TARGET CELLS SLIGHT; TEARDROP CELLS SLIGHT; TOTAL CELLS COUNTED 100
[2018-08-26 11:08] LABS: OVALOCYTES SLIGHT; TOXIC GRANULATION PRESENT
--- NOTE | 2018-08-26 16:56 | CP.PCM.PN ---
Subjective - Date & Time of Evaluation Date of Evaluation: 08/26/18 Time of Evaluation: 07:30 - Subjective Subjective: pt intubated sedated vitals stable nad Objective - Vital Signs/Intake and Output Vital Signs (last 24 hours): Temp Pulse Resp BP Pulse Ox 98.1 F 52 L 26 H 146/72 99 08/26/18 16:00 08/26/18 16:00 08/26/18 16:00 08/26/18 16:00 08/26/18 16:00 Vitals Reviewed GEN: obese. intubated and sedated HEENT: NCAT, PERRL, EOMI HEART: RRR, +S1S2, NO MRG LUNG: CTAB, NO WRR ABD: soft, NT, ND, No HSM, No masses EXT: normal pedal pulses NEURO: intubated and sedated SKIN: warm, dry PSYCH: unable to assess Intake and Output: 08/26/18 08/26/18 06:59 18:59 Intake Total 1775 800 Output Total 200 Balance 1575 800 - Medications Medications: Current Medications Acetaminophen (Tylenol 325mg Tab) 325 mg PO Q4H PRN PRN Reason: Pain, Mild (1-3) Albuterol/Ipratropium (Duoneb 3 Mg/0.5 Mg (3 Ml) Ud) 3 ml INH RQ4 [facility] Last Admin: 08/26/18 15:18 Dose: 3 ml Albuterol/Ipratropium (Duoneb 3 Mg/0.5 Mg (3 Ml) Ud) 3 ml INH RQ2 PRN PRN Reason: Shortness of Breath Amlodipine Besylate (Norvasc) 10 mg PO DAILY [facility] Last Admin: 08/26/18 09:31 Dose: 10 mg Atorvastatin Calcium (Lipitor) 5 mg PO HS [facility] Last Admin: 08/25/18 21:06 Dose: 5 mg Carbidopa/Levodopa (Sinemet) 2 tab PO TID [facility] Last Admin: 08/26/18 12:50 Dose: 2 tab Enoxaparin Sodium (Lovenox) 40 mg SC DAILY [facility]; Protocol Last Admin: 08/26/18 09:26 Dose: 40 mg Escitalopram Oxalate (Lexapro) 10 mg PO DAILY [facility] Last Admin: 08/26/18 09:30 Dose: 10 mg Gabapentin (Neurontin) 300 mg PO BID [facility] Last Admin: 08/26/18 09:32 Dose: 300 mg Fentanyl Citrate 2,500 mcg/ (Dextrose) 250 mls @ 6.83 mls/hr IV .Q24H [facility]; Protocol Last Admin: 08/26/18 05:44 Dose: 1.5 mcg/kg/hr, 20.48 mls/hr Vancomycin HCl 1.25 gm/ Sodium (Chloride) 250 mls @ 166.667 mls/hr IVPB Q12H [facility]; Protocol Last Admin: 08/26/18 12:42 Dose: 166.667 mls/hr Sodium Chloride (Sodium Chloride 0.9%) 1,000 mls @ 42 mls/hr IV .[id number] [facility] Stop: 08/26/18 22:12 Last Admin: 08/25/18 22:32 Dose: 42 mls/hr Propofol (Diprivan) 1,000 mg in 100 mls @ 8.304 mls/hr IV .Q12H3M [facility]; Protocol Stop: 08/27/18 03:36 Last Admin: 08/26/18 04:07 Dose: 10 mcg/kg/min, 8.304 mls/hr Insulin Detemir (Levemir) [address] [facility] Last Admin: 08/25/18 21:11 Dose: 30 units Insulin Human Regular (Humulin R) 0 units SC 0500,1100,1700,2300 [facility]; Protocol Last Admin: 08/26/18 12:48 Dose: 3 units Levothyroxine Sodium (Synthroid) 150 mcg PO DAILY@0630 [facility] Last Admin: 08/26/18 05:39 Dose: 150 mcg Lisinopril (Zestril) 2.5 mg PO DAILY [facility] Last Admin: 08/26/18 09:30 Dose: 2.5 mg Methylprednisolone (Solu-Medrol) 60 mg IV Q6 [facility] Last Admin: 08/26/18 09:34 Dose: 60 mg Metoprolol Tartrate (Lopressor) 25 mg PO BID [facility] Last Admin: 08/26/18 09:17 Dose: Not Given Montelukast Sodium (Singulair) [address] [facility] Last Admin: 08/25/18 21:06 Dose: 10 mg Primidone (Mysoline) [address] [facility] Last Admin: 08/25/18 21:07 Dose: 100 mg - Labs Labs: 08/26/18 04:00 08/26/18 05:00 PT 10.6 Seconds (9.8-13.1) 08/23/18 18:55 INR 0.9 08/23/18 18:55 APTT 30.6 Seconds (25.6-37.1) 08/23/18 18:55 Assessment and Plan - Assessment and Plan (Free Text) Plan: 72 years old patient from the [facility],with hx of morbid obesity, Sleep Apnea, Probably obesity hypoventilation, COPD and DM II insulin requiring, discharged 08/21/18 from [facility], Dx COPD exacerbation with intubation. She comes with one day of SOB and Altered mental status. In the ED he PCO2 was 120 and pH of 7.14. She was intubated immediately. Blood pressure fell post intubation but improved with IV fluids. 1. Acute on chronic hypercapneic Respiratory Failure sec to COPD exacerbation and OHS - Pt is intubated on [facility] Vent - Consulted Pulmonary Dr Duong - Karel tx - cont IV Solumedrol 2. COPD Exacerbation - cont Albuterol/Ipratropium - cont Methylprednisolone 3. Bacteremia Gram positive Cocci + on Blood cultures x 2 Start IV Vanco 1.25 g IV q 12 ID consult Discussed case with Dr Ellis- rec to rpt Blood c/s , may need to remoce Portacath if Blood c/s + rpt CXR Pt had leukocytosis 17k on admission 4. Dehydration - improved with IV Fluids 5.DM type II with Hyperglycemia, Insulin Use - start levemir - Lispro sliding scale according to accucheck - start Tube feeding with Glucerna 6. Hypothyroidism - cont Levothyroxine - check TSH #. DVT prophylaxis with SCD and lovenox #. Code Status: Full
[2018-08-26] MEDS: Insulin Detemir 100 Units/ml Inj SC SCH (22:28)
--- NOTE | 2018-08-26 23:11 | PN ---
PROCEDURE DATE: 08/26/2018 LOCATION: The patient in ICU, bed 425. TIME SPENT: 45 minutes. SUBJECTIVE: The patient is seen and evaluated at the bedside. Past medical, surgical, family, and social history reviewed. Events since admission noted. Case was discussed in Multidisciplinary ICU rounds this morning. HISTORY OF PRESENT ILLNESS: A 72-year-old morbidly obese female from [facility] with sleep apnea, probably obesity hypoventilation syndrome, chronic obstructive pulmonary disease, insulin-requiring diabetes mellitus, anxiety, dementia, depression, arthritis, Parkinson's disease, hypothyroidism, admitted with hypercapnic hypoxic respiratory failure on 08/23/2018. A day after she was discharged from [facility], where the patient was admitted on 08/16/2018 with hypercapnic hypoxic respiratory failure. Overnight, remains intubated, on mechanical ventilation, sedated on Diprivan drip. On AC/PRVC rate of 14, tidal volume of 500, FIO2 of 40%, PEEP of 5, observed rate of 14, observed tidal volume 500, minute ventilation 6.5 liters, oxygen saturation 99%, peak airway pressure of 31, end-tidal CO2 28. PHYSICAL EXAMINATION: HEAD, EYES, EARS, NOSE, AND THROAT: Pupils are 3-4 mm reactive. Corneal reflex present. Conjunctival reflex present. Endotracheal tube in place, thin clear secretions noted. CHEST: Bilateral breath sounds, markedly diminished. Expiration not prolonged. HEART: Rhythm regular. S1, S2 distant. ABDOMEN: Obese. Bowel sounds present. No tenderness. Haddad in place, draining clear urine. EXTREMITIES: Trace edema. NEUROLOGIC EXAMINATION: Sedated, on Diprivan drip. CURRENT MEDICATIONS: DuoNeb 3 mL via nebulizer every 4 hours, albuterol/Atrovent inhalation 3 mL via nebulizer every 2 hours p.r.n. for shortness of breath, Norvasc 10 mg daily, Lipitor 5 mg daily, Sinemet 2 tablets three times daily, Lovenox 40 mg subcutaneous daily, Lexapro 10 mg p.o. daily, Fentanyl patch 250 mcg and 250 mL at 6.8 mL/hour, Neurontin 300 mg b.i.d., Levemir 30 units subcutaneous at bedtime, Zestril 2.5 mg p.o. daily, Solu-Medrol 60 mg IV every 6 hours, Lopressor 25 mg b.i.d., Singulair 10 mg p.o. at bedtime, Primidone 100 mg p.o. at bedtime, Propofol at 8.3 mL at 10 mcg/hour, sodium chloride 42 mL/hour, vancomycin 1.25 g IV every 12 hours. LABORATORY DATA: WBC 12.3, hemoglobin 11.1, hematocrit 35.1, platelet count 254, neutrophils 89.6, lymphocytes 6.6, monocytes 3.8. PT 10.65, INR 0.9, PTT 30.6. ABG: pH 7.38, pCO2 42, pO2 79, oxygen saturation 96.8%, 540%, PEEP of 5. Microbiology: Blood culture positive for Gram-positive cocci. Chest x-ray: Endotracheal tube in place. No pneumothorax. Possible dense airspace disease at the left base, limited right medial basilar airspace disease. IMPRESSION: 1. Neurologic: Septic hypoxic toxic encephalopathy. Remains intubated on mechanical ventilation, sedated on Diprivan and fentanyl. 2. Pulmonary: Hypercapnic hypoxic respiratory failure secondary to chronic obstructive pulmonary disease exacerbation; possible obesity hypoventilation syndrome. 3. Obstructive sleep apnea, on albuterol/Atrovent inhalation. Continue systemic steroids. 4. Cardiac: Hypertension controlled on Norvasc 10 mg daily. Hyperlipidemia, on Lipitor. 5. Psychiatric: Major depression with anxiety, on Lexapro; gabapentin 300 mg b.i.d. 6. Endocrine: History of diabetes mellitus type 2, on Accu-Chek with regular insulin coverage. Hypothyroidism, on supplement. 7. Gastrointestinal: No acute issues noted. Continue gastrointestinal prophylaxis. Keep head of bed 30 degrees up. 8. Renal: No acute issues noted. RECOMMENDATIONS: Head of bed 30 [address] up[address] in place. Continue sedation as needed to facilitate mechanical ventilation and for safety, DVT prophylaxis, and Bactroban. Continue Mysoline, Singulair, Lopressor, and Zestril. Timbo Fuentes MD
[2018-08-27] MEDS: Albuterol-Ipratrop 3 mg / 0.5 (3 ml) UD INH SCH ×7 (00:09→23:42)
[2018-08-27] MEDS: Sodium Chloride 0.9% 1,000 ML IV SCH (00:39)
[2018-08-27 04:43] LABS: ABG ALLEN TEST YES; ARTERIAL BLOOD GAS HCO3 24.8 mmol/L (21-28); ARTERIAL BLOOD GAS HEMOGLOBIN 11.1 g/dL (11.7-17.4); ARTERIAL BLOOD GAS O2 CAPACITY 15.4 mL/dL (16-24); ARTERIAL BLOOD GAS O2 CONTENT 15.2 ML/dL (15-23); ARTERIAL BLOOD GAS O2 SAT 98.6 % (95-98); ARTERIAL BLOOD GAS PCO2 41 mm/Hg (35-45); ARTERIAL BLOOD GAS PH 7.39 (7.35-7.45); ARTERIAL BLOOD GAS PO2 117 mm/Hg (80-100); ARTERIAL BLOOD GAS TCO2 26.1 mmol/L (22-28)
[2018-08-27] MEDS: Insulin Regular 100 units/ml SC SCH ×4 (05:21→22:03)
[2018-08-27 05:28] LABS: HEMOGLOBIN 10.7 g/dL (12.0-16.0); MEAN CELL VOLUME 87.7 fl (81.0-99.0); MEAN CORPUSCULAR HEMOGLOBIN 27.2 pg (27.0-31.0); RBC 3.92 Mil/uL (3.80-5.20); WHITE BLOOD COUNT 13.8 K/uL (4.8-10.8)
[2018-08-27] MEDS: Levothyroxine 150 MCG TAB PO SCH (05:33)
[2018-08-27 05:44] LABS: ALB/GLOB RATIO 1.1 (1.0-2.1); ALBUMIN 2.9 g/dL (3.5-5.0); ALT/SGPT 31 U/L (9-52); AST/SGOT 16 U/L (14-36); BLOOD UREA NITROGEN 31 mg/dl (7-17); CALCIUM 8.1 mg/dL (8.4-10.2); GFR NON-AFRICAN AMERICAN > 60
[2018-08-27] MEDS: Propofol 10 mg/ml 1,000 MG/100 ML VIAL IV SCH ×2 (06:44→19:51)
[2018-08-27] MEDS: Enoxaparin 40 mg Syringe SC SCH (08:19)
--- NOTE | 2018-08-27 09:18 | CP.PCM.PN ---
Subjective - Date & Time of Evaluation Date of Evaluation: 08/27/18 Time of Evaluation: 09:18 - Subjective Subjective: intubated sedated no distress nad Objective - Vital Signs/Intake and Output Vital Signs (last 24 hours): Temp Pulse Resp BP Pulse Ox 98.5 F 57 L 14 147/76 100 08/27/18 08:00 08/27/18 09:00 08/27/18 09:00 08/27/18 09:00 08/27/18 09:00 Vitals Reviewed GEN: intubated sedated HEENT: NCAT, PERRL, EOMI HEART: RRR, +S1S2, NO MRG LUNG: CTAB, NO WRR ABD: soft, NT, ND, No HSM, No masses EXT: normal pedal pulses NEURO: intubated sedated SKIN: warm, dry PSYCH: unable to assess at this time as pt is sedated Intake and Output: 08/27/18 08/27/18 06:59 18:59 Intake Total 1757 Output Total 400 Balance 1357 - Medications Medications: Current Medications Acetaminophen (Tylenol 325mg Tab) 325 mg PO Q4H PRN PRN Reason: Pain, Mild (1-3) Albuterol/Ipratropium (Duoneb 3 Mg/0.5 Mg (3 Ml) Ud) 3 ml INH RQ4 [facility] Last Admin: 08/27/18 07:42 Dose: 3 ml Albuterol/Ipratropium (Duoneb 3 Mg/0.5 Mg (3 Ml) Ud) 3 ml INH RQ2 PRN PRN Reason: Shortness of Breath Amlodipine Besylate (Norvasc) 10 mg PO DAILY [facility] Last Admin: 08/26/18 09:31 Dose: 10 mg Atorvastatin Calcium (Lipitor) 5 mg PO HS [facility] Last Admin: 08/26/18 22:31 Dose: 5 mg Carbidopa/Levodopa (Sinemet) 2 tab PO TID [facility] Last Admin: 08/27/18 08:17 Dose: 2 tab Enoxaparin Sodium (Lovenox) 40 mg SC DAILY [facility]; Protocol Last Admin: 08/27/18 08:19 Dose: 40 mg Escitalopram Oxalate (Lexapro) 10 mg PO DAILY [facility] Last Admin: 08/27/18 08:19 Dose: 10 mg Gabapentin (Neurontin) 300 mg PO BID [facility] Last Admin: 08/27/18 08:16 Dose: 300 mg Fentanyl Citrate 2,500 mcg/ (Dextrose) 250 mls @ 6.83 mls/hr IV .Q24H [facility]; Protocol Last Titration: 08/27/18 01:27 Dose: 1.5 mcg/kg/hr, 20.48 mls/hr Vancomycin HCl 1.25 gm/ Sodium (Chloride) 250 mls @ 166.667 mls/hr IVPB Q12H [facility]; Protocol Last Admin: 08/27/18 00:15 Dose: 166.667 mls/hr Propofol (Diprivan) 1,000 mg in 100 mls @ 4.271 mls/hr IV .[id number] [facility]; P rotocol Stop: 08/28/18 06:31 Last Admin: 08/27/18 06:44 Dose: 10 mcg/kg/min, 8.543 mls/hr Insulin Detemir (Levemir) [address] [facility] Last Admin: 08/26/18 22:28 Dose: 30 units Insulin Human Regular (Humulin R) 0 units SC 0500,1100,1700,2300 [facility]; Protocol Last Admin: 08/27/18 05:21 Dose: 3 units Levothyroxine Sodium (Synthroid) 150 mcg PO DAILY@0630 [facility] Last Admin: 08/27/18 05:33 Dose: 150 mcg Lisinopril (Zestril) 2.5 mg PO DAILY [facility] Last Admin: 08/27/18 08:18 Dose: 2.5 mg Methylprednisolone (Solu-Medrol) 60 mg IV Q6 [facility] Last Admin: 08/27/18 05:00 Dose: 60 mg Metoprolol Tartrate (Lopressor) 25 mg PO BID [facility] Last Admin: 08/27/18 08:18 Dose: 25 mg Montelukast Sodium (Singulair) [address] [facility] Last Admin: 08/26/18 22:29 Dose: 10 mg Primidone (Mysoline) [address] [facility] Last Admin: 08/26/18 22:29 Dose: 100 mg - Labs Labs: 08/27/18 04:20 08/27/18 04:20 PT 10.6 Seconds (9.8-13.1) 08/23/18 18:55 INR 0.9 08/23/18 18:55 APTT 30.6 Seconds (25.6-37.1) 08/23/18 18:55 Assessment and Plan - Assessment and Plan (Free Text) Plan: 72 years old patient from the [facility],with hx of morbid obesity, Sleep Apnea, Probably obesity hypoventilation, COPD and DM II insulin requiring, discharged 08/21/18 from [facility], Dx COPD exacerbation with intubation. She comes with one day of SOB and Altered mental status. In the ED he PCO2 was 120 and pH of 7.14. She was intubated immediately. Blood pressure fell post intubation but improved with IV fluids. 1. Acute on chronic hypercapneic Respiratory Failure sec to COPD exacerbation and OHS - Pt is intubated on [facility] Vent - Consulted Pulmonary Dr Duong - Karel tx - cont IV Solumedrol 2. COPD Exacerbation - cont Albuterol/Ipratropium - cont Methylprednisolone 3. Bacteremia Gram positive Cocci + on Blood cultures x 2 Start IV Vanco 1.25 g IV q 12 ID consult Discussed case with Dr Ellis- rec to rpt Blood c/s , may need to remoce Portacath if Blood c/s + rpt CXR Pt had leukocytosis 17k on admission 4. Dehydration - improved with IV Fluids 5.DM type II with Hyperglycemia, Insulin Use - start levemir - Lispro sliding scale according to accucheck - start Tube feeding with Glucerna 6. Hypothyroidism - cont Levothyroxine - check TSH #. DVT prophylaxis with SCD and lovenox #. Code Status: Full
--- NOTE | 2018-08-27 10:56 | RAD ---
Date of service: 08/27/2018 HISTORY: vented COMPARISON: 08/26/2018 FINDINGS: The endotracheal tube is low in position and terminates at the bigg. The nasogastric tube terminates in the stomach. The right MediPort terminates in the right atrium LUNGS: The lungs are clear. PLEURA: There is a small left pleural effusion. No pneumothorax. CARDIOVASCULAR: There is moderate cardiomegaly and prominent central vasculature. Atherosclerotic aortic arch calcifications are present. OSSEOUS STRUCTURES: Within normal limits for the patient's age. VISUALIZED UPPER ABDOMEN: Normal. OTHER FINDINGS: None. IMPRESSION: Mild cardiomegaly and small left pleural effusion. Limited portable examination, endotracheal tube is low in position and terminates at the bigg.
--- NOTE | 2018-08-27 14:58 | CP.CCUPN ---
CCU Subjective - Physician Review Subjective (Free Text): 08/27/18 16:35 The patient was Seen and examined by me at the bedside during ICU round, Medical records reviewed and Management issues were discussed and formulated with the house staff. Events reviewed 72 Years old morbidly obese Female with PMHx of HTN, Hypothyroidism, DM, Sleep Apnea, morbidly obesity with Probably obesity hypoventilation and COPD Who was last admitted with one day of SOB and Altered mental status, In the ED he PCO2 was 120 and pH of 7.14. She was intubated immediately. Blood pressure fell post intubation but improved with IV fluids. Pt was recently admitted to [facility] on 08/16/18 with COPD exacerbation having to be intubated. She was Discharged on 08/21/18. Clinically improving, Co2 down from 120 to 40s No Vasopressors Awake, Comfortable, on minimal sedations, follows some commands Alert and oriented to self. Breathing unlabored, on room air O2 sat 100%. Last 24H I&O 3867/650 Afebrile, NSR on the monitor initial Blood C/S 08/23 Pos for coagulase negative Staph, Blood C/S repeat 08/25 negative 2 sets Minimal respiratory secretions but thick beige colored . Critical Care Time Spent (in minutes): 45 CCU Objective - Vital Signs / Intake & Output Vital Signs (Last 4 hours): Vital Signs Temp Pulse Resp BP Pulse Ox 08/27/18 14:00 64 14 90/41 L 100 08/27/18 13:00 63 14 129/59 L 100 08/27/18 12:00 98.5 F 52 L 14 139/72 99 08/27/18 11:00 66 18 170/79 H 100 Intake and Output (Last 8hrs): Intake & Output 08/26/18 08/27/18 08/27/18 22:59 06:59 14:59 Intake Total 1871 1346 410 Output Total 250 400 Balance 1621 946 410 Weight 313 lb 14.4 oz Intake: IV 896 436 0 Intake, Piggyback 250 260 Tube Feeding 675 360 Free Water Flush 300 300 150 Output: Urine 250 400 Urethral (Haddad) 250 400 Other: # Bowel Movements 0 0 - Physical Exam Physical Exam Limitations: Positive for: Altered Mental Status Head: Positive for: Atraumatic, Normocephalic Pupils: Positive for: PERRL. Negative for: Non-Reactive, Pinpoint Extroacular Muscles: Positive for: EOMI Conjunctiva: Positive for: Normal. Negative for: Injected, Icteric Mouth: Positive for: Moist Mucous Membranes Pharnyx: Positive for: Normal Nose (Internal): Positive for: Normal Inspection, No Active Bleeding Neck: Positive for: Normal Range of Motion, Trachea Midline. Negative for: Meningeal Signs, MIDLINE TENDERNESS, Paraspinal Tenderness, JVD, Lymphadenopathy, Bruit, Other Respiratory/Chest: Positive for: Wheezes, Decreased Breath Sounds, Rhonchi, Tachypneic. Negative for: Clear to Auscultation, Respiratory Distress, Rales Cardiovascular: Positive for: Regular Rate and Rhythm, Normal S1, S2, Peripheal Pulses Present. Negative for: Murmurs, Irregular Rhythm Abdomen: Positive for: Normal Bowel Sounds. Negative for: Tenderness, Distention Psychiatric: Positive for: Alert. Negative for: Anxious, Agitated - Medications Active Medications: Active Medications Generic Name Dose Route Start Last Admin Trade Name Freq PRN Reason Stop Dose Admin Acetaminophen 325 mg 08/24/18 02:53 Tylenol 325mg Tab PO Q4H PRN Pain, Mild (1-3) Albuterol/Ipratropium 3 ml 08/24/18 04:00 08/27/18 11:28 Duoneb 3 Mg/0.5 Mg (3 Ml) Ud INH 3 ml RQ4 [facility] Administration Albuterol/Ipratropium 3 ml 08/24/18 02:45 Duoneb 3 Mg/0.5 Mg (3 Ml) Ud INH RQ2 PRN Shortness of Breath Amlodipine Besylate 10 mg 08/24/18 09:00 08/27/18 10:53 Norvasc PO 10 mg DAILY [facility] Administration Atorvastatin Calcium 5 mg 08/24/18 22:00 08/26/18 22:31 Lipitor PO 5 mg HS [facility] Administration Carbidopa/Levodopa 2 tab 08/25/18 17:00 08/27/18 13:45 Sinemet PO 2 tab TID [facility] Administration Enoxaparin Sodium 40 mg 08/25/18 12:15 08/27/18 08:19 Lovenox SC 40 mg DAILY [facility] Administration Protocol Escitalopram Oxalate 10 mg 08/25/18 15:45 08/27/18 08:19 Lexapro PO 10 mg DAILY [facility] Administration Gabapentin 300 mg 08/24/18 09:00 08/27/18 08:16 Neurontin PO 300 mg BID [facility] Administration Fentanyl Citrate 2,500 mcg/ 250 mls @ 6.83 mls/hr 08/24/18 17:00 08/27/18 08:37 Dextrose IV 1.5 mcg/kg/hr .Q24H [facility] 20.48 mls/hr Titration Protocol 0.5 MCG/KG/HR Vancomycin HCl 1.25 gm/ Sodium 250 mls @ 166.667 mls/hr 08/25/18 11:30 08/27/18 11:02 Chloride IVPB 166.667 mls/hr Q12H [facility] Administration Protocol Propofol 1,000 mg in 100 mls @ 4.271 mls/hr 08/27/18 06:30 08/27/18 06:44 Diprivan IV 08/28/18 06:31 10 mcg/kg/min .[id number] [facility] 8.543 mls/hr Administration Protocol 5 MCG/KG/MIN Insulin Detemir 30 units 08/25/18 22:00 08/26/18 22:28 Levemir SC 30 units HS [facility] Administration Insulin Human Regular 0 units 08/24/18 12:30 08/27/18 11:06 Humulin R SC 3 units 0500,1100,1700,2300 [facility] Administration Protocol Levothyroxine Sodium 150 mcg 08/24/18 06:30 08/27/18 05:33 Synthroid PO 150 mcg DAILY@0630 [facility] Administration Lisinopril 2.5 mg 08/24/18 09:00 08/27/18 08:18 Zestril PO 2.5 mg DAILY [facility] Administration Methylprednisolone 60 mg 08/24/18 04:00 08/27/18 09:42 Solu-Medrol IV 60 mg Q6 [facility] Administration Metoprolol Tartrate 25 mg 08/24/18 09:00 08/27/18 08:18 Lopressor PO 25 mg BID [facility] Administration Montelukast Sodium 10 mg 08/24/18 22:00 08/26/18 22:29 Singulair PO 10 mg HS [facility] Administration Primidone 100 mg 08/25/18 22:00 08/26/18 22:29 Mysoline PO 100 mg HS [facility] Administration - Patient Studies Lab Studies: Microbiology Studies 08/25/18 14:48 Blood Culture - Preliminary Blood-Thru Central Line NO GROWTH AFTER 48 HOURS 08/25/18 14:48 Blood Culture - Preliminary Blood-Thru Central Line NO GROWTH AFTER 48 HOURS 08/23/18 18:30 Blood Culture - Final Blood Coagulase Neg Staphylococcus Gram Stain - Final 08/23/18 18:45 S.aureus & Coag-Neg Staph PNA FISH - Final Blood Blood Culture - Final Coagulase Neg Staphylococcus Gram Stain - Final Lab Studies 08/27/18 08/27/18 08/27/18 Range/Units 04:33 04:20 04:20 WBC 13.8 H (4.8-10.8) K/uL RBC 3.92 (3.80-5.20) Mil/uL Hgb 10.7 L (12.0-16.0) g/dL Hct 34.4 (34.0-47.0) % MCV 87.7 (81.0-99.0) fl MCH 27.2 (27.0-31.0) pg MCHC 31.0 L (33.0-37.0) g/dL RDW 17.0 H (11.5-14.5) % Plt Count 197 (130-400) K/uL pCO2 (35-45) mm/Hg pO2 (80-100) mm/Hg HCO3 (21-28) mmol/L ABG pH (7.35-7.45) ABG Total CO2 (22-28) mmol/L ABG O2 Saturation (95-98) % ABG O2 Content (15-23) ML/dL ABG Base Excess (-2.0-3.0) mmol/L ABG Hemoglobin (11.7-17.4) g/dL ABG Carboxyhemoglobin (0.5-1.5) % POC ABG HHb (Measured) (0.0-5.0) % ABG Methemoglobin (0.0-3.0) % ABG O2 Capacity (16-24) mL/dL Jay Test A-a O2 Difference mm/Hg Hgb O2 Saturation (95.0-98.0) % Vent Mode Mechanical Rate FiO2 % Tidal Volume PEEP Sodium 134 (132-148) mmol/l Potassium 4.6 (3.6-5.0) MMOL/L Chloride 104 (98-107) mmol/L Carbon Dioxide 23 (22-30) mmol/L Anion Gap 12 (10-20) BUN 31 H (7-17) mg/dl Creatinine 0.6 L (0.7-1.2) mg/dl Est GFR ( Amer) > 60 Est GFR (Non-Af Amer) > 60 POC Glucose (mg/dL) 251 H (65-110) mg/dL Random Glucose 243 H (65-105) mg/dL Calcium 8.1 L (8.4-10.2) mg/dL Total Bilirubin 0.3 (0.2-1.3) mg/dl AST 16 (14-36) U/L ALT 31 (9-52) U/L Alkaline Phosphatase 44 (38-126) U/L Total Protein 5.6 L (6.3-8.2) G/DL Albumin 2.9 L (3.5-5.0) g/dL Globulin 2.6 (2.2-3.9) gm/dL Albumin/Globulin Ratio 1.1 (1.0-2.1) 08/27/18 08/26/18 08/26/18 Range/Units 04:00 21:13 16:55 WBC (4.8-10.8) K/uL RBC (3.80-5.20) Mil/uL Hgb (12.0-16.0) g/dL Hct (34.0-47.0) % MCV (81.0-99.0) fl MCH (27.0-31.0) pg MCHC (33.0-37.0) g/dL RDW (11.5-14.5) % Plt Count (130-400) K/uL pCO2 41 (35-45) mm/Hg pO2 117 H (80-100) mm/Hg HCO3 24.8 (21-28) mmol/L ABG pH 7.39 (7.35-7.45) ABG Total CO2 26.1 (22-28) mmol/L ABG O2 Saturation 98.6 H (95-98) % ABG O2 Content 15.2 (15-23) ML/dL ABG Base Excess -0.2 (-2.0-3.0) mmol/L ABG Hemoglobin 11.1 L (11.7-17.4) g/dL ABG Carboxyhemoglobin 1.4 (0.5-1.5) % POC ABG HHb (Measured) 1.4 (0.0-5.0) % ABG Methemoglobin 1.0 (0.0-3.0) % ABG O2 Capacity 15.4 L (16-24) mL/dL Jay Test Yes A-a O2 Difference 117.0 mm/Hg Hgb O2 Saturation 96.2 (95.0-98.0) % Vent Mode A/c Mechanical Rate 14 FiO2 40.0 % Tidal Volume 500 PEEP 5 Sodium (132-148) mmol/l Potassium (3.6-5.0) MMOL/L Chloride (98-107) mmol/L Carbon Dioxide (22-30) mmol/L Anion Gap (10-20) BUN (7-17) mg/dl Creatinine (0.7-1.2) mg/dl Est GFR ( Amer) Est GFR (Non-Af Amer) POC Glucose (mg/dL) 215 H 272 H (65-110) mg/dL Random Glucose (65-105) mg/dL Calcium (8.4-10.2) mg/dL Total Bilirubin (0.2-1.3) mg/dl AST (14-36) U/L ALT (9-52) U/L Alkaline Phosphatase (38-126) U/L Total Protein (6.3-8.2) G/DL Albumin (3.5-5.0) g/dL Globulin (2.2-3.9) gm/dL Albumin/Globulin Ratio (1.0-2.1) 08/26/18 Range/Units 11:56 WBC (4.8-10.8) K/uL RBC (3.80-5.20) Mil/uL Hgb (12.0-16.0) g/dL Hct (34.0-47.0) % MCV (81.0-99.0) fl MCH (27.0-31.0) pg MCHC (33.0-37.0) g/dL RDW (11.5-14.5) % Plt Count (130-400) K/uL pCO2 (35-45) mm/Hg pO2 (80-100) mm/Hg HCO3 (21-28) mmol/L ABG pH (7.35-7.45) ABG Total CO2 (22-28) mmol/L ABG O2 Saturation (95-98) % ABG O2 Content (15-23) ML/dL ABG Base Excess (-2.0-3.0) mmol/L ABG Hemoglobin (11.7-17.4) g/dL ABG Carboxyhemoglobin (0.5-1.5) % POC ABG HHb (Measured) (0.0-5.0) % ABG Methemoglobin (0.0-3.0) % ABG O2 Capacity (16-24) mL/dL Jay Test A-a O2 Difference mm/Hg Hgb O2 Saturation (95.0-98.0) % Vent Mode Mechanical Rate FiO2 % Tidal Volume PEEP Sodium (132-148) mmol/l Potassium (3.6-5.0) MMOL/L Chloride (98-107) mmol/L Carbon Dioxide (22-30) mmol/L Anion Gap (10-20) BUN (7-17) mg/dl Creatinine (0.7-1.2) mg/dl Est GFR ( Amer) Est GFR (Non-Af Amer) POC Glucose (mg/dL) 297 H (65-110) mg/dL Random Glucose (65-105) mg/dL Calcium (8.4-10.2) mg/dL Total Bilirubin (0.2-1.3) mg/dl AST (14-36) U/L ALT (9-52) U/L Alkaline Phosphatase (38-126) U/L Total Protein (6.3-8.2) G/DL Albumin (3.5-5.0) g/dL Globulin (2.2-3.9) gm/dL Albumin/Globulin Ratio (1.0-2.1) Laboratory Results - last 24 hr 08/26/18 08/26/18 08/26/18 11:56 16:55 21:13 WBC RBC Hgb Hct MCV MCH MCHC RDW Plt Count pCO2 pO2 HCO3 ABG pH ABG Total CO2 ABG O2 Saturation ABG O2 Content ABG Base Excess ABG Hemoglobin ABG Carboxyhemoglobin POC ABG HHb (Measured) ABG Methemoglobin ABG O2 Capacity Jay Test A-a O2 Difference Hgb O2 Saturation Vent Mode Mechanical Rate FiO2 Tidal Volume PEEP Sodium Potassium Chloride Carbon Dioxide Anion Gap BUN Creatinine Est GFR ( Amer) Est GFR (Non-Af Amer) POC Glucose (mg/dL) 297 H 272 H 215 H Random Glucose Calcium Total Bilirubin AST ALT Alkaline Phosphatase Total Protein Albumin Globulin Albumin/Globulin Ratio 08/27/18 08/27/18 08/27/18 04:00 04:20 04:20 WBC 13.8 H RBC 3.92 Hgb 10.7 L Hct 34.4 MCV 87.7 MCH 27.2 MCHC 31.0 L RDW 17.0 H Plt Count 197 pCO2 41 pO2 117 H HCO3 24.8 ABG pH 7.39 ABG Total CO2 26.1 ABG O2 Saturation 98.6 H ABG O2 Content 15.2 ABG Base Excess -0.2 ABG Hemoglobin 11.1 L ABG Carboxyhemoglobin 1.4 POC ABG HHb (Measured) 1.4 ABG Methemoglobin 1.0 ABG O2 Capacity 15.4 L Jay Test Yes A-a O2 Difference 117.0 Hgb O2 Saturation 96.2 Vent Mode A/c Mechanical Rate 14 FiO2 40.0 Tidal Volume 500 PEEP 5 Sodium 134 Potassium 4.6 Chloride 104 Carbon Dioxide 23 Anion Gap 12 BUN 31 H Creatinine 0.6 L Est GFR ( Amer) > 60 Est GFR (Non-Af Amer) > 60 POC Glucose (mg/dL) Random Glucose 243 H Calcium 8.1 L Total Bilirubin 0.3 AST 16 ALT 31 Alkaline Phosphatase 44 Total Protein 5.6 L Albumin 2.9 L Globulin 2.6 Albumin/Globulin Ratio 1.1 08/27/18 04:33 WBC RBC Hgb Hct MCV MCH MCHC RDW Plt Count pCO2 pO2 HCO3 ABG pH ABG Total CO2 ABG O2 Saturation ABG O2 Content ABG Base Excess ABG Hemoglobin ABG Carboxyhemoglobin POC ABG HHb (Measured) ABG Methemoglobin ABG O2 Capacity Jay Test A-a O2 Difference Hgb O2 Saturation Vent Mode Mechanical Rate FiO2 Tidal Volume PEEP Sodium Potassium Chloride Carbon Dioxide Anion Gap BUN Creatinine Est GFR ( Amer) Est GFR (Non-Af Amer) POC Glucose (mg/dL) 251 H Random Glucose Calcium Total Bilirubin AST ALT Alkaline Phosphatase Total Protein Albumin Globulin Albumin/Globulin Ratio Fingerstick Blood Sugar Results: 267 Review of Systems - Review of Systems Systems not reviewed;Unavailable: Intubated Critical Care Progress Note - Ventilator Checklist Head of Bed 30 Degrees: Yes Daily Sedation Vacation: Yes Daily Assessment of Readiness to Wean: Yes Daily Spontaneous Breathing Trial: Yes PUD Prophalyxis: Yes DVT Prophylaxis: Yes Oral Care with Chlorhexidine Gluconate {CHG}: Yes - Extremities/Vascular Does the Patient have a Central Venous Catheter?: Yes Does the Patient need a Central Venous Catheter?: Yes Does the Patient have a Haddad Catheter?: Yes Does the Patient need a Haddad Catheter?: Yes - Nutrition Nutrition: Nutrition Category Date Time Status NPO Diet [DIET] Diets 08/23/18 Dinner Active Assessment/Plan (1) COPD exacerbation Current Visit: Yes Status: Acute Priority: High Comment: Albuterol/Ipratropium INH RQ4 IV Methylprednisolone Singulair 10 mg PO HS (2) Hypercapnic respiratory failure Current Visit: Yes Status: Acute Priority: High Comment: Vent weaning in progress Daily CAT/SBT Albuterol/Ipratropium IV Methylprednisolone Aggressive pulmonary toilet (3) Acute respiratory failure with hypoxia and hypercapnia Current Visit: Yes Status: Acute Priority: High (4) Bacteremia Current Visit: Yes Status: Acute Priority: High Comment: Vancomycin HCl 1.25 gm IVPB Q12H (5) Altered mental status Current Visit: Yes Status: Acute Priority: High
[2018-08-27] MEDS ORDERED: Sodium Chloride 0.9% 1,000 ML IV SCH (16:30)
[2018-08-27] MEDS: Proshield Plus GEL TOP PRN (17:47)
[2018-08-27] MEDS: Fentanyl Citrate 2,500 MCG in Dextrose 5% In Water 200 ML IV SCH (21:33)
[2018-08-27] MEDS: Insulin Detemir 100 Units/ml Inj SC SCH (21:43)
[2018-08-28] MEDS: Albuterol-Ipratrop 3 mg / 0.5 (3 ml) UD INH SCH ×5 (04:22→19:14)
[2018-08-28 04:39] LABS: ABG ALLEN TEST YES; ARTERIAL BLOOD GAS HCO3 27.6 mmol/L (21-28); ARTERIAL BLOOD GAS HEMOGLOBIN 10.5 g/dL (11.7-17.4); ARTERIAL BLOOD GAS O2 CAPACITY 14.7 mL/dL (16-24); ARTERIAL BLOOD GAS O2 CONTENT 14.6 ML/dL (15-23); ARTERIAL BLOOD GAS PCO2 35 mm/Hg (35-45); ARTERIAL BLOOD GAS PH 7.49 (7.35-7.45); ARTERIAL BLOOD GAS PO2 130 mm/Hg (80-100); ARTERIAL BLOOD GAS TCO2 27.8 mmol/L (22-28)
[2018-08-28 05:40] LABS: BASO % 0.1 % (0.0-2.0); HEMOGLOBIN 10.5 g/dL (12.0-16.0); LYMPH # 0.7 K/uL (1.0-4.3); LYMPH % 6.3 % (20.0-40.0); MEAN CELL VOLUME 86.6 fl (81.0-99.0); MEAN CORPUSCULAR HEMOGLOBIN 27.6 pg (27.0-31.0); MEAN CORPUSCULAR HGB CONC 31.9 g/dL (33.0-37.0); MEAN PLATELET VOLUME 9.9 fl (7.2-11.7); MONO # 0.4 K/uL (0.0-0.8); MONO % 3.5 % (0.0-10.0); NEUT # 10.3 K/uL (1.8-7.0); NEUT % 90.1 % (50.0-75.0); PLATELET COUNT 202 K/uL (130-400); RBC 3.81 Mil/uL (3.80-5.20); RED CELL DISTRIBUTION WIDTH 16.2 % (11.5-14.5); WHITE BLOOD COUNT 11.5 K/uL (4.8-10.8)
[2018-08-28 05:52] LABS: ALB/GLOB RATIO 1.1 (1.0-2.1); ALBUMIN 2.9 g/dL (3.5-5.0); ALT/SGPT 31 U/L (9-52); AST/SGOT 13 U/L (14-36); BLOOD UREA NITROGEN 24 mg/dl (7-17); CALCIUM 8.3 mg/dL (8.4-10.2); GFR NON-AFRICAN AMERICAN > 60
[2018-08-28] MEDS: Levothyroxine 150 MCG TAB PO SCH (06:16)
[2018-08-28] MEDS: Insulin Regular 100 units/ml SC SCH ×4 (06:17→22:51)
[2018-08-28] MEDS: Propofol 10 mg/ml 1,000 MG/100 ML VIAL IV SCH ×2 (06:49→07:04)
[2018-08-28] MEDS ORDERED: Sodium Chloride 0.9% 1,000 ML IV SCH (07:15)
[2018-08-28 08:29] LABS: LYMPHOCYTE 6 % (20-50); MONOCYTE 4 % (0-10); NEUTROPHIL 90 % (42-75); TOTAL CELLS COUNTED 100
[2018-08-28 08:30] LABS: ANISOCYTOSIS SLIGHT; HYPOCHROMIC SLIGHT; PLATELET ESTIMATE NORMAL (NORMAL)
[2018-08-28] MEDS: Proshield Plus GEL TOP PRN (09:31)
[2018-08-28] MEDS: Enoxaparin 40 mg Syringe SC SCH (09:32)
[2018-08-28] MEDS: Fentanyl Citrate 2,500 MCG in Dextrose 5% In Water 200 ML IV SCH (10:29)
--- NOTE | 2018-08-28 11:23 | CP.CCUPN ---
CCU Subjective - Physician Review Subjective (Free Text): Awake and responsive, RASS at 0 to +1, no distress, and good tolerance when placed on low level CPAP PS. After 60-70 minutes, remains at RASS +1, and low dose Propofol drip which has just been stopped. Decision made to extubate. Other vitals and I/O's reviewed. Afebrile, BP 180/90, HR 85 sinus, RR 15, Ve= 7.7 and RSBI = 47, SPO2 100% on 40% oxygen. Urine output 2800 ml last 24H. ROS: No other pertinent negs or positives on 10+ system review. Other PMSFH: All other Nursing and physician documentation reviewed to date; no new pertinent info noted relevant to current medical problems. EXAM- HEENT: no icterus, no gaze preference, Pupils 3 mm and reactive NECK: No JVD visible, supple, carotids equal upstroke bilat/no bruit CHEST: diminished bilat BS, no wheezes audible HEART: regular, distant tachy S1S2, no rubs ABD: soft, obese, no focal tenderness, no guarding, no organomegaly, BS hypoactive. EXT: trace edema, no calf tenderness or palpable cords, distal pulses intact and symmetrical. NEURO: moves all 4 limbs spontaneously SKIN: no rashes, warm and dry LABS: WBC= 11.5 HGB= 10.5 PLTs= 202K 7.49/35/130 Na= 134 K= 4.2 SX=045 HCO3= 27 BUN/Cr= 24/0.7 BS= 273 CXR+ ETT position OK above bigg, cardiomegaly noted, mil PVC, Left effusion, possible underlying ??? LLL Infiltrate (my interp) IMPRESSION / MAJOR PROBLEMS NOW: 1. Acute on chronic Hypercapneic Resp Failure 2 COPD Exac / Pulm edema 2. r/o Pneumonia versus tracheobronchitis 3. GPC Bacteremia 2 Coag neg Staph, sens to Vanco 4. Morbid Obesity PLAN: 1. Extubation. 2. More Lasix. 3. ECHO for LV fx, r/o DDysfx, assess for any vegetative valvular disease. 4. IV steroids, add CAP coverage to Vanco, Duonebs. 5. Maintain glycemic control. 6. No Advance Directives known, full resuscitative measures if required.
--- NOTE | 2018-08-28 13:45 | CP.PCM.PN ---
Subjective - Date & Time of Evaluation Date of Evaluation: 08/28/18 Time of Evaluation: 06:00 - Subjective Subjective: repeat cultures negative on antibiotics Objective - Vital Signs/Intake and Output Vital Signs (last 24 hours): Temp Pulse Resp BP Pulse Ox 97.9 F 106 H 12 129/86 100 08/28/18 12:00 08/28/18 13:00 08/28/18 13:00 08/28/18 13:00 08/28/18 13:00 Intake and Output: 08/28/18 08/28/18 06:59 18:59 Intake Total 1679 1110 Output Total 1800 220 Balance -121 890 - Medications Medications: Current Medications Acetaminophen (Tylenol 325mg Tab) 325 mg PO Q4H PRN PRN Reason: Pain, Mild (1-3) Albuterol/Ipratropium (Duoneb 3 Mg/0.5 Mg (3 Ml) Ud) 3 ml INH RQ4 [facility] Last Admin: 08/28/18 11:49 Dose: 3 ml Albuterol/Ipratropium (Duoneb 3 Mg/0.5 Mg (3 Ml) Ud) 3 ml INH RQ2 PRN PRN Reason: Shortness of Breath Amlodipine Besylate (Norvasc) 10 mg PO DAILY [facility] Last Admin: 08/28/18 09:36 Dose: 10 mg Atorvastatin Calcium (Lipitor) 5 mg PO HS [facility] Last Admin: 08/27/18 21:42 Dose: 5 mg Carbidopa/Levodopa (Sinemet) 2 tab PO TID [facility] Last Admin: 08/28/18 12:26 Dose: Not Given Dimethicone (Proshield Plus Skin Protectant) 1 applic TOP Q8 PRN PRN Reason: Other Last Admin: 08/28/18 09:31 Dose: 1 applic Enoxaparin Sodium (Lovenox) 40 mg SC DAILY [facility]; Protocol Last Admin: 08/28/18 09:32 Dose: 40 mg Escitalopram Oxalate (Lexapro) 10 mg PO DAILY [facility] Last Admin: 08/28/18 09:34 Dose: 10 mg Gabapentin (Neurontin) 300 mg PO BID [facility] Last Admin: 08/28/18 09:33 Dose: 300 mg Vancomycin HCl 1.25 gm/ Sodium (Chloride) 250 mls @ 166.667 mls/hr IVPB Q12H [facility]; Protocol Last Admin: 08/28/18 10:37 Dose: 166.667 mls/hr Fentanyl Citrate 2,500 mcg/ (Dextrose) 250 mls @ 6.83 mls/hr IV .Q24H [facility]; Protocol Last Admin: 08/28/18 10:29 Dose: 0.5 mcg/kg/hr, 6.83 mls/hr Sodium Chloride (Sodium Chloride 0.9%) 1,000 mls @ 42 mls/hr IV .[id number] [facility] Stop: 08/28/18 16:26 Last Admin: 08/27/18 16:35 Dose: 42 mls/hr Propofol (Diprivan) 1,000 mg in 100 mls @ 8.543 mls/hr IV .[id number] [facility]; Protocol Stop: 08/28/18 19:46 Last Admin: 08/28/18 07:04 Dose: 10 mcg/kg/min, 8.543 mls/hr Sodium Chloride (Sodium Chloride 0.9%) 1,000 mls @ 42 mls/hr IV .[id number] [facility] Stop: 08/29/18 07:03 Last Admin: 08/28/18 06:20 Dose: 42 mls/hr Insulin Detemir (Levemir) 30 units SC [facility] Last Admin: 08/27/18 21:43 Dose: 30 units Insulin Human Regular (Humulin R) 0 units SC 0500,1100,1700,2300 [facility]; Protocol Last Admin: 08/28/18 12:24 Dose: 2 units Levothyroxine Sodium (Synthroid) 150 mcg PO DAILY@0630 [facility] Last Admin: 08/28/18 06:16 Dose: 150 mcg Lisinopril (Zestril) 2.5 mg PO DAILY [facility] Last Admin: 08/28/18 09:33 Dose: 2.5 mg Methylprednisolone (Solu-Medrol) 60 mg IV Q6 [facility] Last Admin: 08/28/18 09:38 Dose: 60 mg Metoprolol Tartrate (Lopressor) 25 mg PO BID [facility] Last Admin: 08/27/18 16:16 Dose: Not Given Montelukast Sodium (Singulair) 10 mg PO HS [facility] Last Admin: 08/27/18 21:42 Dose: 10 mg Pantoprazole Sodium (Protonix Inj) 40 mg IVP DAILY [facility] Last Admin: 08/28/18 09:37 Dose: Not Given Primidone (Mysoline) 100 mg PO HS [facility] Last Admin: 08/27/18 21:42 Dose: 100 mg - Labs Labs: 08/28/18 05:00 08/28/18 05:00 PT 10.6 Seconds (9.8-13.1) 08/23/18 18:55 INR 0.9 08/23/18 18:55 APTT 30.6 Seconds (25.6-37.1) 08/23/18 18:55 - Constitutional Appears: Confused, Chronically Ill - Head Exam Head Exam: NORMOCEPHALIC - Eye Exam Eye Exam: PERRL - ENT Exam ENT Exam: Mucous Membranes Dry - Neck Exam Neck Exam: absent: Lymphadenopathy - Respiratory Exam Respiratory Exam: Decreased Breath Sounds - Cardiovascular Exam Cardiovascular Exam: REGULAR RHYTHM - GI/Abdominal Exam GI & Abdominal Exam: Distended, Soft - Rectal Exam Rectal Exam: Deferred - Exam Exam: NORMAL INSPECTION - Extremities Exam Extremities Exam: absent: Pedal Edema - Back Exam Back Exam: absent: CVA tenderness (L), CVA tenderness (R) - Neurological Exam Neurological Exam: Alert, Awake Assessment and Plan (1) Bacteremia Status: Acute (2) Hypercapnic respiratory failure Status: Acute (3) COPD (chronic obstructive pulmonary disease) Status: Chronic (4) Acute respiratory acidosis Status: Acute (5) Acute respiratory failure with hypercapnia Status: Acute (6) Acute respiratory failure with hypoxia and hypercapnia Status: Acute (7) Altered mental status Status: Acute - Assessment and Plan (Free Text) Assessment: repeat cultures negative on antibiotics consider port removal / replacement
--- NOTE | 2018-08-28 14:11 | CP.PCM.PN ---
Objective - Vital Signs/Intake and Output Vital Signs (last 24 hours): Temp Pulse Resp BP Pulse Ox 97.9 F 106 H 12 129/86 100 08/28/18 12:00 08/28/18 13:00 08/28/18 13:00 08/28/18 13:00 08/28/18 13:00 Intake and Output: 08/28/18 08/28/18 06:59 18:59 Intake Total 1679 1110 Output Total 1800 220 Balance -121 890 - Medications Medications: Current Medications Acetaminophen (Tylenol 325mg Tab) 325 mg PO Q4H PRN PRN Reason: Pain, Mild (1-3) Albuterol/Ipratropium (Duoneb 3 Mg/0.5 Mg (3 Ml) Ud) 3 ml INH RQ4 [facility] Last Admin: 08/28/18 11:49 Dose: 3 ml Albuterol/Ipratropium (Duoneb 3 Mg/0.5 Mg (3 Ml) Ud) 3 ml INH RQ2 PRN PRN Reason: Shortness of Breath Amlodipine Besylate (Norvasc) 10 mg PO DAILY [facility] Last Admin: 08/28/18 09:36 Dose: 10 mg Atorvastatin Calcium (Lipitor) 5 mg PO HS [facility] Last Admin: 08/27/18 21:42 Dose: 5 mg Carbidopa/Levodopa (Sinemet) 2 tab PO TID [facility] Last Admin: 08/28/18 12:26 Dose: Not Given Dimethicone (Proshield Plus Skin Protectant) 1 applic TOP Q8 PRN PRN Reason: Other Last Admin: 08/28/18 09:31 Dose: 1 applic Enoxaparin Sodium (Lovenox) 40 mg SC DAILY [facility]; Protocol Last Admin: 08/28/18 09:32 Dose: 40 mg Escitalopram Oxalate (Lexapro) 10 mg PO DAILY [facility] Last Admin: 08/28/18 09:34 Dose: 10 mg Gabapentin (Neurontin) 300 mg PO BID [facility] Last Admin: 08/28/18 09:33 Dose: 300 mg Vancomycin HCl 1.25 gm/ Sodium (Chloride) 250 mls @ 166.667 mls/hr IVPB Q12H [facility] ; Protocol Last Admin: 08/28/18 10:37 Dose: 166.667 mls/hr Fentanyl Citrate 2,500 mcg/ (Dextrose) 250 mls @ 6.83 mls/hr IV .Q24H [facility]; Protocol Last Admin: 08/28/18 10:29 Dose: 0.5 mcg/kg/hr, 6.83 mls/hr Sodium Chloride (Sodium Chloride 0.9%) 1,000 mls @ 42 mls/hr IV .[id number] [facility] Stop: 08/28/18 16:26 Last Admin: 08/27/18 16:35 Dose: 42 mls/hr Propofol (Diprivan) 1,000 mg in 100 mls @ 8.543 mls/hr IV .[id number] [facility]; Protocol Stop: 08/28/18 19:46 Last Admin: 08/28/18 07:04 Dose: 10 mcg/kg/min, 8.543 mls/hr Sodium Chloride (Sodium Chloride 0.9%) 1,000 mls @ 42 mls/hr IV .[id number] [facility] Stop: 08/29/18 07:03 Last Admin: 08/28/18 06:20 Dose: 42 mls/hr Insulin Detemir (Levemir) 30 units SC [facility] Last Admin: 08/27/18 21:43 Dose: 30 units Insulin Human Regular (Humulin R) 0 units SC 0500,1100,1700,2300 [facility]; Protocol Last Admin: 08/28/18 12:24 Dose: 2 units Levothyroxine Sodium (Synthroid) 150 mcg PO DAILY@0630 [facility] Last Admin: 08/28/18 06:16 Dose: 150 mcg Lisinopril (Zestril) 2.5 mg PO DAILY [facility] Last Admin: 08/28/18 09:33 Dose: 2.5 mg Methylprednisolone (Solu-Medrol) 60 mg IV Q6 [facility] Last Admin: 08/28/18 09:38 Dose: 60 mg Metoprolol Tartrate (Lopressor) 25 mg PO BID [facility] Last Admin: 08/27/18 16:16 Dose: Not Given Montelukast Sodium (Singulair) 10 mg PO [facility] Last Admin: 08/27/18 21:42 Dose: 10 mg Pantoprazole Sodium (Protonix Inj) 40 mg IVP DAILY [facility] Last Admin: 08/28/18 09:37 Dose: Not Given Primidone (Mysoline) 100 mg PO [facility] Last Admin: 08/27/18 21:42 Dose: 100 mg - Labs Labs: 08/28/18 05:00 08/28/18 05:00 PT 10.6 Seconds (9.8-13.1) 08/23/18 18:55 INR 0.9 08/23/18 18:55 APTT 30.6 Seconds (25.6-37.1) 08/23/18 18:55
--- NOTE | 2018-08-28 15:40 | RAD ---
Date of service: 08/28/2018 HISTORY: intubated COMPARISON: No prior. FINDINGS: In situ ETT, the tip of which lies approximately 1.6 cm above bigg. NGT is present, the distal aspect of which overlies left parasagittal upper abdomen however the tip has not been included on this film. No change right IJ MediPort. LUNGS: The pulmonary vascular congestive changes with bilateral lower lobe alveolar-type infiltrates and bilateral effusions left larger than right PLEURA: No significant pleural effusion identified, no pneumothorax apparent. CARDIOVASCULAR: Aortic atherosclerotic calcification present. Cardiomegaly no pulmonary vascular congestion. OSSEOUS STRUCTURES: Multilevel degenerative spondylosis and dextroscoliosis again noted the VISUALIZED UPPER ABDOMEN: Normal. OTHER FINDINGS: None. IMPRESSION: Support lines and tubes as above. Pulmonary venous congestive changes with bilateral lower lobe alveolar-type infiltrates and bilateral effusions left greater than right.
[2018-08-28 20:18] LABS: ABG ALLEN TEST YES; ARTERIAL BLOOD GAS HCO3 22.4 mmol/L (21-28); ARTERIAL BLOOD GAS O2 SAT 94.6 % (95-98); ARTERIAL BLOOD GAS PCO2 75 mm/Hg (35-45); ARTERIAL BLOOD GAS PH 7.17 (7.35-7.45); ARTERIAL BLOOD GAS PO2 72 mm/Hg (80-100); ARTERIAL BLOOD GAS TCO2 29.7 mmol/L (22-28)
--- NOTE | 2018-08-28 20:31 | CP.CCUPN ---
CCU Subjective - Physician Review Subjective (Free Text): 08/28/18 20:29 Patient reported to be becoming more confused this evening. ABG performed and showed worsening acidosis and hypercarbia. Will give 1 hour trial of bipap, and if no improvement, will need to reintubate. CCU Objective - Vital Signs / Intake & Output Vital Signs (Last 4 hours): Vital Signs Pulse Resp BP Pulse Ox 08/28/18 20:00 80 15 137/47 L 100 08/28/18 17:00 102 H 9 L 110/94 H 98 Intake and Output (Last 8hrs): Intake & Output 08/28/18 08/28/18 08/28/18 06:59 14:59 22:59 Intake Total 1152 1194 84 Output Total 1800 220 60 Balance -648 974 24 Weight 313 lb 14.4 oz Intake: IV 242 844 84 Intake, Piggyback 250 20 Oral 0 0 Tube Feeding 360 180 Free Water Flush 300 150 Output: Urine 1800 220 60 Urethral (Haddad) 1800 220 60 - Physical Exam Head: Positive for: Atraumatic, Normocephalic Pupils: Positive for: PERRL. Negative for: Non-Reactive, Pinpoint Extroacular Muscles: Positive for: EOMI Conjunctiva: Positive for: Normal. Negative for: Injected, Icteric Mouth: Positive for: Moist Mucous Membranes Pharnyx: Positive for: Normal Nose (Internal): Positive for: Normal Inspection, No Active Bleeding Neck: Positive for: Normal Range of Motion, Trachea Midline. Negative for: Meningeal Signs, MIDLINE TENDERNESS, Paraspinal Tenderness, JVD, Lympha denopathy, Bruit, Other Respiratory/Chest: Positive for: Wheezes, Decreased Breath Sounds, Rhonchi, Tachypneic. Negative for: Clear to Auscultation, Respiratory Distress, Rales Cardiovascular: Positive for: Regular Rate and Rhythm, Normal S1, S2, Peripheal Pulses Present. Negative for: Murmurs, Irregular Rhythm Abdomen: Positive for: Normal Bowel Sounds. Negative for: Tenderness, Distention Psychiatric: Positive for: Alert. Negative for: Anxious, Agitated - Medications Active Medications: Active Medications Generic Name Dose Route Start Last Admin Trade Name Freq PRN Reason Stop Dose Admin Acetaminophen 325 mg 08/24/18 02:53 Tylenol 325mg Tab PO Q4H PRN Pain, Mild (1-3) Albuterol/Ipratropium 3 ml 08/24/18 04:00 08/28/18 19:14 Duoneb 3 Mg/0.5 Mg (3 Ml) Ud INH 3 ml RQ4 [facility] Administration Albuterol/Ipratropium 3 ml 08/24/18 02:45 Duoneb 3 Mg/0.5 Mg (3 Ml) Ud INH RQ2 PRN Shortness of Breath Amlodipine Besylate 10 mg 08/24/18 09:00 08/28/18 09:36 Norvasc PO 10 mg DAILY [facility] Administration Atorvastatin Calcium 5 mg 08/24/18 22:00 08/27/18 21:42 Lipitor PO 5 mg HS [facility] Administration Carbidopa/Levodopa 2 tab 08/25/18 17:00 08/28/18 18:42 Sinemet PO Not Given TID [facility] Dimethicone 1 applic 08/27/18 16:21 08/28/18 09:31 Proshield Plus Skin Protectant TOP 1 applic Q8 PRN Administration Other Enoxaparin Sodium 40 mg 08/25/18 12:15 08/28/18 09:32 Lovenox SC 40 mg DAILY [facility] Administration Protocol Escitalopram Oxalate 10 mg 08/25/18 15:45 08/28/18 09:34 Lexapro PO 10 mg DAILY [facility] Administration Furosemide 60 mg 08/28/18 14:45 08/28/18 14:52 Lasix IVP 60 mg DAILY [facility] Administration Gabapentin 300 mg 08/24/18 09:00 08/28/18 18:41 Neurontin PO Not Given BID [facility] Vancomycin HCl 1.25 gm/ Sodium 250 mls @ 166.667 mls/hr 08/25/18 11:30 08/28/18 10:37 Chloride IVPB 166.667 mls/hr Q12H [facility] Administration Protocol Fentanyl Citrate 2,500 mcg/ 250 mls @ 6.83 mls/hr 08/27/18 15:06 08/28/18 15:30 Dextrose IV 0 mcg/kg/hr .Q24H [facility] 0 mls/hr Titration Protocol 0.5 MCG/KG/HR Sodium Chloride 1,000 mls @ 42 mls/hr 08/28/18 07:15 08/28/18 06:20 Sodium Chloride 0.9% IV 08/29/18 07:03 42 mls/hr .[id number] [facility] Administration Insulin Detemir 30 units 08/25/18 22:00 08/27/18 21:43 Levemir SC 30 units HS [facility] Administration Insulin Human Regular 0 units 08/24/18 12:30 08/28/18 17:00 Humulin R SC 2 units 0500,1100,1700,2300 [facility] Administration Protocol Levothyroxine Sodium 150 mcg 08/24/18 06:30 08/28/18 06:16 Synthroid PO 150 mcg DAILY@0630 [facility] Administration Lisinopril 2.5 mg 08/24/18 09:00 08/28/18 09:33 Zestril PO 2.5 mg DAILY [facility] Administration Methylprednisolone 60 mg 08/24/18 04:00 08/28/18 16:15 Solu-Medrol IV 60 mg Q6 [facility] Administration Metoprolol Tartrate 25 mg 08/24/18 09:00 08/27/18 16:16 Lopressor PO Not Given BID [facility] Montelukast Sodium 10 mg 08/24/18 22:00 08/27/18 21:42 Singulair PO 10 mg HS [facility] Administration Pantoprazole Sodium 40 mg 08/28/18 09:00 08/28/18 09:37 Protonix Inj IVP Not Given DAILY [facility] Primidone 100 mg 08/25/18 22:00 08/27/18 21:42 Mysoline PO 100 mg HS [facility] Administration - Patient Studies Lab Studies: Microbiology Studies 08/25/18 14:48 Blood Culture - Preliminary Blood-Thru Central Line NO GROWTH AFTER 3 DAYS 08/25/18 14:48 Blood Culture - Preliminary Blood-Thru Central Line NO GROWTH AFTER 3 DAYS Lab Studies 08/28/18 08/28/18 08/28/18 Range/Units 20:15 17:48 11:28 WBC (4.8-10.8) K/uL RBC (3.80-5.20) Mil/uL Hgb (12.0-16.0) g/dL Hct (34.0-47.0) % MCV (81.0-99.0) fl MCH (27.0-31.0) pg MCHC (33.0-37.0) g/dL RDW (11.5-14.5) % Plt Count (130-400) K/uL MPV (7.2-11.7) fl Neut % (Auto) (50.0-75.0) % Lymph % (Auto) (20.0-40.0) % Caswell % (Auto) (0.0-10.0) % Eos % (Auto) (0.0-4.0) % Baso % (Auto) (0.0-2.0) % Neut # (Auto) (1.8-7.0) K/uL Lymph # (Auto) (1.0-4.3) K/uL Caswell # (Auto) (0.0-0.8) K/uL Eos # (Auto) (0.0-0.7) K/uL Baso # (Auto) (0.0-0.2) K/uL Neutrophils % (Manual) (42-75) % Lymphocytes % (Manual) (20-50) % Monocytes % (Manual) (0-10) % Platelet Estimate (NORMAL) Hypochromasia (manual) Anisocytosis (manual) pCO2 75 H* (35-45) mm/Hg pO2 72 L (80-100) mm/Hg HCO3 22.4 (21-28) mmol/L ABG pH 7.17 L* (7.35-7.45) ABG Total CO2 29.7 H (22-28) mmol/L ABG O2 Saturation 94.6 L (95-98) % ABG O2 Content (15-23) ML/dL ABG Base Excess -3.0 L (-2.0-3.0) mmol/L ABG Hemoglobin (11.7-17.4) g/dL ABG Carboxyhemoglobin (0.5-1.5) % POC ABG HHb (Measured) (0.0-5.0) % ABG Methemoglobin (0.0-3.0) % ABG O2 Capacity (16-24) mL/dL Jay Test Yes ABG Potassium 4.4 (3.6-5.2) mmol/L A-a O2 Difference 119.0 mm/Hg Hgb O2 Saturation (95.0-98.0) % Glucose 241 H (65-105) mg/dL Lactate 0.9 (0.7-2.1) mmol/L Vent Mode V/m Mechanical Rate FiO2 40.0 % Tidal Volume PEEP Crit Value Called To Dr julissa liang Crit Value Called By [id number] Crit Value Read Back Y Blood Gas Notified Time 2017 Sodium 131.0 L (132-148) mmol/l Potassium (3.6-5.0) MMOL/L Chloride 98.0 (98-107) mmol/L Carbon Dioxide (22-30) mmol/L Anion Gap (10-20) BUN (7-17) mg/dl Creatinine (0.7-1.2) mg/dl Est GFR ( Amer) Est GFR (Non-Af Amer) POC Glucose (mg/dL) 211 H 215 H (65-110) mg/dL Random Glucose (65-105) mg/dL Calcium (8.4-10.2) mg/dL Total Bilirubin (0.2-1.3) mg/dl AST (14-36) U/L ALT (9-52) U/L Alkaline Phosphatase (38-126) U/L Total Protein (6.3-8.2) G/DL Albumin (3.5-5.0) g/dL Globulin (2.2-3.9) gm/dL Albumin/Globulin Ratio (1.0-2.1) Arterial Blood Potassium 4.4 (3.6-5.2) mmol/L 08/28/18 08/28/18 08/28/18 Range/Units 06:15 05:00 05:00 WBC 11.5 H (4.8-10.8) K/uL RBC 3.81 (3.80-5.20) Mil/uL Hgb 10.5 L (12.0-16.0) g/dL Hct 33.0 L (34.0-47.0) % MCV 86.6 (81.0-99.0) fl MCH 27.6 (27.0-31.0) pg MCHC 31.9 L (33.0-37.0) g/dL RDW 16.2 H (11.5-14.5) % Plt Count 202 (130-400) K/uL MPV 9.9 (7.2-11.7) fl Neut % (Auto) 90.1 H (50.0-75.0) % Lymph % (Auto) 6.3 L (20.0-40.0) % Caswell % (Auto) 3.5 (0.0-10.0) % Eos % (Auto) 0.0 (0.0-4.0) % Baso % (Auto) 0.1 (0.0-2.0) % Neut # (Auto) 10.3 H (1.8-7.0) K/uL Lymph # (Auto) 0.7 L (1.0-4.3) K/uL Caswell # (Auto) 0.4 (0.0-0.8) K/uL Eos # (Auto) 0.0 (0.0-0.7) K/uL Baso # (Auto) 0.0 (0.0-0.2) K/uL Neutrophils % (Manual) 90 H (42-75) % Lymphocytes % (Manual) 6 L (20-50) % Monocytes % (Manual) 4 (0-10) % Platelet Estimate Normal (NORMAL) Hypochromasia (manual) Slight Anisocytosis (manual) Slight pCO2 (35-45) mm/Hg pO2 (80-100) mm/Hg HCO3 (21-28) mmol/L ABG pH (7.35-7.45) ABG Total CO2 (22-28) mmol/L ABG O2 Saturation (95-98) % ABG O2 Content (15-23) ML/dL ABG Base Excess (-2.0-3.0) mmol/L ABG Hemoglobin (11.7-17.4) g/dL ABG Carboxyhemoglobin (0.5-1.5) % POC ABG HHb (Measured) (0.0-5.0) % ABG Methemoglobin (0.0-3.0) % ABG O2 Capacity (16-24) mL/dL Jay Test ABG Potassium (3.6-5.2) mmol/L A-a O2 Difference mm/Hg Hgb O2 Saturation (95.0-98.0) % Glucose (65-105) mg/dL Lactate (0.7-2.1) mmol/L Vent Mode Mechanical Rate FiO2 % Tidal Volume PEEP Crit Value Called To Crit Value Called By Crit Value Read Back Blood Gas Notified Time Sodium 134 (132-148) mmol/l Potassium 4.2 (3.6-5.0) MMOL/L Chloride 103 (98-107) mmol/L Carbon Dioxide 27 (22-30) mmol/L Anion Gap 8 L (10-20) BUN 24 H (7-17) mg/dl Creatinine 0.7 (0.7-1.2) mg/dl Est GFR ( Amer) > 60 Est GFR (Non-Af Amer) > 60 POC Glucose (mg/dL) 227 H (65-110) mg/dL Random Glucose 273 H (65-105) mg/dL Calcium 8.3 L (8.4-10.2) mg/dL Total Bilirubin 0.2 (0.2-1.3) mg/dl AST 13 L (14-36) U/L ALT 31 (9-52) U/L Alkaline Phosphatase 49 (38-126) U/L Total Protein 5.5 L (6.3-8.2) G/DL Albumin 2.9 L (3.5-5.0) g/dL Globulin 2.7 (2.2-3.9) gm/dL Albumin/Globulin Ratio 1.1 (1.0-2.1) Arterial Blood Potassium (3.6-5.2) mmol/L 08/28/18 08/27/18 08/27/18 Range/Units 04:00 21:35 16:50 WBC (4.8-10.8) K/uL RBC (3.80-5.20) Mil/uL Hgb (12.0-16.0) g/dL Hct (34.0-47.0) % MCV (81.0-99.0) fl MCH (27.0-31.0) pg MCHC (33.0-37.0) g/dL RDW (11.5-14.5) % Plt Count (130-400) K/uL MPV (7.2-11.7) fl Neut % (Auto) (50.0-75.0) % Lymph % (Auto) (20.0-40.0) % Caswell % (Auto) (0.0-10.0) % Eos % (Auto) (0.0-4.0) % Baso % (Auto) (0.0-2.0) % Neut # (Auto) (1.8-7.0) K/uL Lymph # (Auto) (1.0-4.3) K/uL Caswell # (Auto) (0.0-0.8) K/uL Eos # (Auto) (0.0-0.7) K/uL Baso # (Auto) (0.0-0.2) K/uL Neutrophils % (Manual) (42-75) % Lymphocytes % (Manual) (20-50) % Monocytes % (Manual) (0-10) % Platelet Estimate (NORMAL) Hypochromasia (manual) Anisocytosis (manual) pCO2 35 (35-45) mm/Hg pO2 130 H (80-100) mm/Hg HCO3 27.6 (21-28) mmol/L ABG pH 7.49 H (7.35-7.45) ABG Total CO2 27.8 (22-28) mmol/L ABG O2 Saturation 99.0 H (95-98) % ABG O2 Content 14.6 L (15-23) ML/dL ABG Base Excess 3.4 H (-2.0-3.0) mmol/L ABG Hemoglobin 10.5 L (11.7-17.4) g/dL ABG Carboxyhemoglobin 1.2 (0.5-1.5) % POC ABG HHb (Measured) 1.0 (0.0-5.0) % ABG Methemoglobin 0.8 (0.0-3.0) % ABG O2 Capacity 14.7 L (16-24) mL/dL Jay Test Yes ABG Potassium (3.6-5.2) mmol/L A-a O2 Difference 111.0 mm/Hg Hgb O2 Saturation 97.0 (95.0-98.0) % Glucose (65-105) mg/dL Lactate (0.7-2.1) mmol/L Vent Mode A/c Mechanical Rate 14 FiO2 40.0 % Tidal Volume 500 PEEP 5 Crit Value Called To Crit Value Called By Crit Value Read Back Blood Gas Notified Time Sodium (132-148) mmol/l Potassium (3.6-5.0) MMOL/L Chloride (98-107) mmol/L Carbon Dioxide (22-30) mmol/L Anion Gap (10-20) BUN (7-17) mg/dl Creatinine (0.7-1.2) mg/dl Est GFR ( Amer) Est GFR (Non-Af Amer) POC Glucose (mg/dL) 215 H 223 H (65-110) mg/dL Random Glucose (65-105) mg/dL Calcium (8.4-10.2) mg/dL Total Bilirubin (0.2-1.3) mg/dl AST (14-36) U/L ALT (9-52) U/L Alkaline Phosphatase (38-126) U/L Total Protein (6.3-8.2) G/DL Albumin (3.5-5.0) g/dL Globulin (2.2-3.9) gm/dL Albumin/Globulin Ratio (1.0-2.1) Arterial Blood Potassium (3.6-5.2) mmol/L Laboratory Results - last 24 hr 08/27/18 08/27/18 08/28/18 16:50 21:35 04:00 WBC RBC Hgb Hct MCV MCH MCHC RDW Plt Count MPV Neut % (Auto) Lymph % (Auto) [place] % (Auto) Eos % (Auto) Baso % (Auto) Neut # (Auto) Lymph # (Auto) [place] # (Auto) Eos # (Auto) Baso # (Auto) Neutrophils % (Manual) Lymphocytes % (Manual) Monocytes % (Manual) Platelet Estimate Hypochromasia (manual) Anisocytosis (manual) pCO2 35 pO2 130 H HCO3 27.6 ABG pH 7.49 H ABG Total CO2 27.8 ABG O2 Saturation 99.0 H ABG O2 Content 14.6 L ABG Base Excess 3.4 H ABG Hemoglobin 10.5 L ABG Carboxyhemoglobin 1.2 POC ABG HHb (Measured) 1.0 ABG Methemoglobin 0.8 ABG O2 Capacity 14.7 L Jay Test Yes ABG Potassium A-a O2 Difference 111.0 Hgb O2 Saturation 97.0 Glucose Lactate Vent Mode A/c Mechanical Rate 14 FiO2 40.0 Tidal Volume 500 PEEP 5 Crit Value Called To Crit Value Called By Crit Value Read Back Blood Gas Notified Time Sodium Potassium Chloride Carbon Dioxide Anion Gap BUN Creatinine Est GFR ( Amer) Est GFR (Non-Af Amer) POC Glucose (mg/dL) 223 H 215 H Random Glucose Calcium Total Bilirubin AST ALT Alkaline Phosphatase Total Protein Albumin Globulin Albumin/Globulin Ratio Arterial Blood Potassium 08/28/18 08/28/18 08/28/18 05:00 05:00 06:15 WBC 11.5 H RBC 3.81 Hgb 10.5 L Hct 33.0 L MCV 86.6 MCH 27.6 MCHC 31.9 L RDW 16.2 H Plt Count 202 MPV 9.9 Neut % (Auto) 90.1 H Lymph % (Auto) 6.3 L [place] % (Auto) 3.5 Eos % (Auto) 0.0 Baso % (Auto) 0.1 Neut # (Auto) 10.3 H Lymph # (Auto) 0.7 L [place] # (Auto) 0.4 Eos # (Auto) 0.0 Baso # (Auto) 0.0 Neutrophils % (Manual) 90 H Lymphocytes % (Manual) 6 L Monocytes % (Manual) 4 Platelet Estimate Normal Hypochromasia (manual) Slight Anisocytosis (manual) Slight pCO2 pO2 HCO3 ABG pH ABG Total CO2 ABG O2 Saturation ABG O2 Content ABG Base Excess ABG Hemoglobin ABG Carboxyhemoglobin POC ABG HHb (Measured) ABG Methemoglobin ABG O2 Capacity Jay Test ABG Potassium A-a O2 Difference Hgb O2 Saturation Glucose Lactate Vent Mode Mechanical Rate FiO2 Tidal Volume PEEP Crit Value Called To Crit Value Called By Crit Value Read Back Blood Gas Notified Time Sodium 134 Potassium 4.2 Chloride 103 Carbon Dioxide 27 Anion Gap 8 L BUN 24 H Creatinine 0.7 Est GFR ( Amer) > 60 Est GFR (Non-Af Amer) > 60 POC Glucose (mg/dL) 227 H Random Glucose 273 H Calcium 8.3 L Total Bilirubin 0.2 AST 13 L ALT 31 Alkaline Phosphatase 49 Total Protein 5.5 L Albumin 2.9 L Globulin 2.7 Albumin/Globulin Ratio 1.1 Arterial Blood Potassium 08/28/18 08/28/18 08/28/18 11:28 17:48 20:15 WBC RBC Hgb Hct MCV MCH MCHC RDW Plt Count MPV Neut % (Auto) Lymph % (Auto) [place] % (Auto) Eos % (Auto) Baso % (Auto) Neut # (Auto) Lymph # (Auto) [place] # (Auto) Eos # (Auto) Baso # (Auto) Neutrophils % (Manual) Lymphocytes % (Manual) Monocytes % (Manual) Platelet Estimate Hypochromasia (manual) Anisocytosis (manual) pCO2 75 H* pO2 72 L HCO3 22.4 ABG pH 7.17 L* ABG Total CO2 29.7 H ABG O2 Saturation 94.6 L ABG O2 Content ABG Base Excess -3.0 L ABG Hemoglobin ABG Carboxyhemoglobin POC ABG HHb (Measured) ABG Methemoglobin ABG O2 Capacity Jay Test Yes ABG Potassium 4.4 A-a O2 Difference 119.0 Hgb O2 Saturation Glucose 241 H Lactate 0.9 Vent Mode V/m Mechanical Rate FiO2 40.0 Tidal Volume PEEP Crit Value Called To Dr julissa liang Crit Value Called By [id number] Crit Value Read Back Y Blood Gas Notified Time 2017 Sodium 131.0 L Potassium Chloride 98.0 Carbon Dioxide Anion Gap BUN Creatinine Est GFR ( Amer) Est GFR (Non-Af Amer) POC Glucose (mg/dL) 215 H 211 H Random Glucose Calcium Total Bilirubin AST ALT Alkaline Phosphatase Total Protein Albumin Globulin Albumin/Globulin Ratio Arterial Blood Potassium 4.4 Fingerstick Blood Sugar Results: 211 Critical Care Progress Note - Nutrition Nutrition: Nutrition Category Date Time Status NPO Diet [DIET] Diets 08/23/18 Dinner Active
[2018-08-28] MEDS: Insulin Detemir 100 Units/ml Inj SC SCH (21:40)
[2018-08-28 21:53] LABS: ABG ALLEN TEST YES; ARTERIAL BLOOD GAS HCO3 23.2 mmol/L (21-28); ARTERIAL BLOOD GAS HEMOGLOBIN 12.2 g/dL (11.7-17.4); ARTERIAL BLOOD GAS O2 CAPACITY 16.7 mL/dL (16-24); ARTERIAL BLOOD GAS O2 CONTENT 16.5 ML/dL (15-23); ARTERIAL BLOOD GAS O2 SAT 98.9 % (95-98); ARTERIAL BLOOD GAS PCO2 79 mm/Hg (35-45); ARTERIAL BLOOD GAS PH 7.16 (7.35-7.45); ARTERIAL BLOOD GAS PO2 118 mm/Hg (80-100); ARTERIAL BLOOD GAS TCO2 30.6 mmol/L (22-28)
[2018-08-28] MEDS ORDERED: Rocuronium 10 mg/ml (5 ml) IV ONE (22:04)
[2018-08-28] MEDS ORDERED: Etomidate 20 mg/10ml Inj IV ONE (22:06)
--- NOTE | 2018-08-28 22:45 | PCM.PROC ---
Procedures Attestation:: I certify that I have explained the specified Operation(s) or Procedure(s), risks, benefits and reasonable alternatives to the Patient and/or other person responsible. The opportunity was given to ask questions and all questions answered - Intubation Time Out Performed: Yes Sedative: Etomidate Mg Given: 20 Paralytic: Rocuronimum Mg Given: 20 Laryngoscope: Glidescope ET Tube Size: 8.0 ET Tube Uncuffed: No ET Tube Secured Locarion: Teeth ET Tube Placement Confirmation: Visualized Passing Through Cords, Breath Sounds Equal Bilaterally, No Breath Sounds Over Epigastrum, Confirmation w/Capnometry Patient Tolerated Procedure: Well Procedure Immediate Complications: None Additional comments: Patient intubated due to acutely worsening hypercarbic respiratory failure with mental status changes/inability to protect airway.
[2018-08-28] MEDS: Midazolam 2 MG/2 ML VIAL IV PRN (23:04)
[2018-08-29] MEDS: Albuterol-Ipratrop 3 mg / 0.5 (3 ml) UD INH SCH ×6 (00:02→19:00)
[2018-08-29 00:15] LABS: ABG ALLEN TEST YES; ARTERIAL BLOOD GAS HCO3 26.1 mmol/L (21-28); ARTERIAL BLOOD GAS HEMOGLOBIN 11.3 g/dL (11.7-17.4); ARTERIAL BLOOD GAS O2 CAPACITY 15.5 mL/dL (16-24); ARTERIAL BLOOD GAS O2 CONTENT 15.3 ML/dL (15-23); ARTERIAL BLOOD GAS O2 SAT 98.4 % (95-98); ARTERIAL BLOOD GAS PCO2 38 mm/Hg (35-45); ARTERIAL BLOOD GAS PH 7.44 (7.35-7.45); ARTERIAL BLOOD GAS PO2 99 mm/Hg (80-100)
[2018-08-29] MEDS: Insulin Regular 100 units/ml SC SCH ×4 (05:00→22:05)
[2018-08-29] MEDS: Levothyroxine 150 MCG TAB PO SCH ×2 (05:50→09:42)
[2018-08-29 06:00] LABS: HEMOGLOBIN 11.3 g/dL (12.0-16.0); MEAN CELL VOLUME 88.4 fl (81.0-99.0); MEAN CORPUSCULAR HEMOGLOBIN 27.2 pg (27.0-31.0); MEAN CORPUSCULAR HGB CONC 30.8 g/dL (33.0-37.0); RBC 4.14 Mil/uL (3.80-5.20); RED CELL DISTRIBUTION WIDTH 16.6 % (11.5-14.5)
[2018-08-29 06:16] LABS: BLOOD UREA NITROGEN 30 mg/dl (7-17); CALCIUM 8.7 mg/dL (8.4-10.2); GFR NON-AFRICAN AMERICAN > 60
[2018-08-29 06:30] LABS: ABG ALLEN TEST YES; ARTERIAL BLOOD GAS HCO3 26.5 mmol/L (21-28); ARTERIAL BLOOD GAS O2 SAT 98.6 % (95-98); ARTERIAL BLOOD GAS PCO2 36 mm/Hg (35-45); ARTERIAL BLOOD GAS PH 7.46 (7.35-7.45); ARTERIAL BLOOD GAS PO2 104 mm/Hg (80-100); ARTERIAL BLOOD GAS TCO2 26.7 mmol/L (22-28)
--- NOTE | 2018-08-29 09:21 | RAD ---
Date of service: 08/28/2018 HISTORY: new intubation COMPARISON: 08/28/2018 at 6:04 a.m. FINDINGS: LUNGS: No active pulmonary disease. PLEURA: Small left pleural effusion. No right pleural effusion or pneumothorax. CARDIOVASCULAR: ET tube tip positioned approximately 3.2 cm above tracheal bigg. Nasogastric tube extends beneath the diaphragm. Right central venous infusion port unchanged. Normal heart size. No congestive change. No atherosclerotic calcification of the thoracic aorta noted. OSSEOUS STRUCTURES: No significant abnormalities. VISUALIZED UPPER ABDOMEN: Normal. OTHER FINDINGS: None. IMPRESSION: Small left pleural effusion. No pneumothorax. Lines and tubes unchanged.
--- NOTE | 2018-08-29 09:31 | RAD ---
Date of service: 08/29/2018 HISTORY: intubated COMPARISON: 08/28/2018 FINDINGS: LUNGS: Technically limited. No infiltrate. PLEURA: No significant pleural effusion identified, no pneumothorax apparent. CARDIOVASCULAR: No aortic atherosclerotic calcification present. Normal cardiac size. No significant congestive change. ET tube, NG tube and right central venous infusion port grossly unchanged. OSSEOUS STRUCTURES: No significant abnormalities. VISUALIZED UPPER ABDOMEN: Normal. OTHER FINDINGS: None. IMPRESSION: No active disease. Limited examination.
[2018-08-29] MEDS: Proshield Plus GEL TOP PRN (09:40)
[2018-08-29] MEDS: Enoxaparin 40 mg Syringe SC SCH (09:42)
--- NOTE | 2018-08-29 11:12 | CP.CCUPN ---
CCU Subjective - Physician Review Subjective (Free Text): Aware or re-intubation overnight for hypercarbia. Now, awake and appropriately responsive, not overtly agitated. Other vitals and I/O's reviewed. Afebrile, SBP 140-170's, HR 75 sinus, RR 15, SPo2 100% on 40% oxygen. Urine output 3380 ml last 24H. ROS: No other pertinent negs or positives on 10+ system review. Other PMSFH: All other Nursing and physician documentation reviewed to date; no new pertinent info noted relevant to current medical problems. EXAM- HEENT: no icterus, no gaze preference, Pupils 3 mm and reactive NECK: No JVD visible, supple, carotids equal upstroke bilat/no bruit CHEST: diminished bilat BS, no wheezes audible HEART: regular, distant tachy S1S2, no rubs ABD: soft, obese, no focal tenderness, no guarding, no organomegaly, BS hypoactive. EXT: trace edema, no calf tenderness or palpable cords, distal pulses intact and symmetrical. NEURO: moves all 4 limbs spontaneously SKIN: no rashes, warm and dry LABS: WBC= 15.0 HGB= 11.3 PLTs= 192K 7.46/36/104 Na= 136 K= 3.9 TJ=395 HCO3= 25 BUN/Cr= 30/0.9 BS= 246 CXR+ ETT position OK above bigg, mild PVC, Left effusion, possible underlying ??? LLL Infiltrate (my interp) IMPRESSION / MAJOR PROBLEMS NOW: 1. Acute on chronic Hypercapneic Resp Failure 2 COPD Exac / Pulm edema 2. r/o Pneumonia versus tracheobronchitis 3. GPC Bacteremia 2 Coag neg Staph, sens to Vanco 4. Morbid Obesity PLAN: 1. Will diurese a bit more before considering extubation again. 2. ECHO for LV fx, r/o DDysfx, assess for any vegetative valvular disease. 3. Add CAP coverage to [facility] Foster. She is Pen/Cephs allergic. Repeat Sputum Cx. 4. May need removal of existing R chest port-a-cath. 5. Decrease IV steroids.
[2018-08-29] MEDS ORDERED: Sodium Chloride 0.9% 1,000 ML IV SCH (11:15)
[2018-08-29] MEDS: levoFLOXacin 500 mg in D5W 500 MG/100 ML BAG IVPB SCH (13:42)
--- NOTE | 2018-08-29 17:19 | CP.PCM.PN ---
Objective - Vital Signs/Intake and Output Vital Signs (last 24 hours): Temp Pulse Resp BP Pulse Ox 98.6 F 78 27 H 136/97 H 100 08/29/18 16:00 08/29/18 16:00 08/29/18 16:00 08/29/18 16:00 08/29/18 16:00 Intake and Output: 08/29/18 08/29/18 06:59 18:59 Intake Total 816 950 Output Total 3100 2800 Balance -2284 -1850 - Medications Medications: Current Medications Acetaminophen (Tylenol 325mg Tab) 325 mg PO Q4H PRN PRN Reason: Pain, Mild (1-3) Albuterol/Ipratropium (Duoneb 3 Mg/0.5 Mg (3 Ml) Ud) 3 ml INH RQ4 [facility] Last Admin: 08/29/18 15:18 Dose: 3 ml Albuterol/Ipratropium (Duoneb 3 Mg/0.5 Mg (3 Ml) Ud) 3 ml INH RQ2 PRN PRN Reason: Shortness of Breath Amlodipine Besylate (Norvasc) 10 mg PO DAILY [facility] Last Admin: 08/29/18 09:23 Dose: 10 mg Atorvastatin Calcium (Lipitor) 5 mg PO HS [facility] Last Admin: 08/28/18 21:40 Dose: Not Given Carbidopa/Levodopa (Sinemet) 2 tab PO TID [facility] Last Admin: 08/29/18 16:05 Dose: 2 tab Dimethicone (Proshield Plus Skin Protectant) 1 applic TOP Q8 PRN PRN Reason: Other Last Admin: 08/29/18 09:40 Dose: 1 applic Enoxaparin Sodium (Lovenox) 40 mg SC DAILY [facility]; Protocol Last Admin: 08/29/18 09:42 Dose: 40 mg Escitalopram Oxalate (Lexapro) 10 mg PO DAILY [facility] Last Admin: 08/29/18 09:35 Dose: 10 mg Fentanyl (Fentanyl) 50 mcg IVP Q4H PRN PRN Reason: anxiety/agitation on vent Last Admin: 08/29/18 16:00 Dose: 50 mcg Furosemide (Lasix) 60 mg IVP DAILY [facility] Last Admin: 08/29/18 09:48 Dose: 60 mg Gabapentin (Neurontin) 300 mg PO BID [facility] Last Admin: 08/29/18 16:03 Dose: 300 mg Vancomycin HCl 1.25 gm/ Sodium (Chloride) 250 mls @ 166.667 mls/hr IVPB Q12H [facility]; Protocol Last Admin: 08/29/18 12:15 Dose: 166.667 mls/hr Fentanyl Citrate 2,500 mcg/ (Dextrose) 250 mls @ 6.83 mls/hr IV .Q24H [facility]; Protocol Last Titration: 08/28/18 15:30 Dose: 0 mcg/kg/hr, 0 mls/hr Sodium Chloride (Sodium Chloride 0.9%) 1,000 mls @ 42 mls/hr IV .[id number] [facility] Stop: 08/30/18 11:15 Levofloxacin/Dextrose (Levaquin 500mg) 500 mg in 100 mls @ 100 mls/hr IVPB DAILY [facility]; Protocol Last Admin: 08/29/18 13:42 Dose: 100 mls/hr Insulin Detemir (Levemir) 30 units SC [facility] Last Admin: 08/28/18 21:40 Dose: 30 units Insulin Human Regular (Humulin R) 0 units SC 0500,1100,1700,2300 [facility]; Protocol Last Admin: 08/29/18 17:06 Dose: 2 units Levothyroxine Sodium (Synthroid) 150 mcg PO DAILY@0630 [facility] Last Admin: 08/29/18 09:42 Dose: 150 mcg Lisinopril (Zestril) 2.5 mg PO DAILY [facility] Last Admin: 08/29/18 09:36 Dose: 2.5 mg Methylprednisolone (Solu-Medrol) 40 mg IV Q12 [facility] Metoprolol Tartrate (Lopressor) 25 mg PO BID [facility] Last Admin: 08/27/18 16:16 Dose: Not Given Midazolam HCl (Versed Inj) 2 mg IV Q4H PRN PRN Reason: agitation/anxiety on vent Last Admin: 08/28/18 23:04 Dose: 2 mg Montelukast Sodium (Singulair) 10 mg PO [facility] Last Admin: 08/28/18 21:41 Dose: Not Given Pantoprazole Sodium (Protonix Inj) 40 mg IVP DAILY [facility] Last Admin: 08/29/18 09:39 Dose: 40 mg Primidone (Mysoline) 100 mg PO [facility] Last Admin: 08/28/18 21:41 Dose: Not Given - Labs Labs: 08/29/18 05:54 08/29/18 05:54 PT 10.6 Seconds (9.8-13.1) 08/23/18 18:55 INR 0.9 08/23/18 18:55 APTT 30.6 Seconds (25.6-37.1) 08/23/18 18:55
[2018-08-29] MEDS: Insulin Detemir 100 Units/ml Inj SC SCH (21:38)
[2018-08-29] MEDS: MethylPREDNISolone 40 mg Vial IV SCH (21:38)
[2018-08-30] MEDS: Midazolam 2 MG/2 ML VIAL IV PRN (04:23)
[2018-08-30] MEDS: Albuterol-Ipratrop 3 mg / 0.5 (3 ml) UD INH SCH ×7 (04:54→23:58)
[2018-08-30] MEDS: Insulin Regular 100 units/ml SC SCH ×4 (05:19→23:00)
[2018-08-30 05:23] LABS: ABG ALLEN TEST YES; ARTERIAL BLOOD GAS HCO3 33.6 mmol/L (21-28); ARTERIAL BLOOD GAS O2 CAPACITY 13.9 mL/dL (16-24); ARTERIAL BLOOD GAS O2 CONTENT 13.7 ML/dL (15-23); ARTERIAL BLOOD GAS O2 SAT 98.9 % (95-98); ARTERIAL BLOOD GAS PCO2 36 mm/Hg (35-45); ARTERIAL BLOOD GAS PH 7.58 (7.35-7.45); ARTERIAL BLOOD GAS PO2 98 mm/Hg (80-100); ARTERIAL BLOOD GAS TCO2 34.9 mmol/L (22-28)
[2018-08-30 05:26] LABS: HEMOGLOBIN 10.5 g/dL (12.0-16.0); MEAN CELL VOLUME 85.9 fl (81.0-99.0); MEAN CORPUSCULAR HEMOGLOBIN 27.6 pg (27.0-31.0); MEAN CORPUSCULAR HGB CONC 32.1 g/dL (33.0-37.0); RBC 3.8 Mil/uL (3.80-5.20); RED CELL DISTRIBUTION WIDTH 16.5 % (11.5-14.5); WHITE BLOOD COUNT 12.7 K/uL (4.8-10.8)
[2018-08-30 05:41] LABS: ALB/GLOB RATIO 1.2 (1.0-2.1); ALT/SGPT 30 U/L (9-52); AST/SGOT 19 U/L (14-36); BLOOD UREA NITROGEN 27 mg/dl (7-17); CALCIUM 8.1 mg/dL (8.4-10.2); GFR NON-AFRICAN AMERICAN > 60
[2018-08-30] MEDS: Levothyroxine 150 MCG TAB PO SCH (06:00)
--- NOTE | 2018-08-30 07:11 | CP.PCM.PN ---
Objective - Vital Signs/Intake and Output Vital Signs (last 24 hours): Temp Pulse Resp BP Pulse Ox 98.6 F 69 17 133/88 99 08/30/18 04:00 08/30/18 05:54 08/30/18 05:54 08/30/18 05:54 08/30/18 05:54 Intake and Output: 08/30/18 08/30/18 06:59 18:59 Intake Total 1864 Output Total 1300 Balance 564 - Medications Medications: Current Medications Acetaminophen (Tylenol 325mg Tab) 325 mg PO Q4H PRN PRN Reason: Pain, Mild (1-3) Albuterol/Ipratropium (Duoneb 3 Mg/0.5 Mg (3 Ml) Ud) 3 ml INH RQ4 [facility] Last Admin: 08/30/18 04:54 Dose: 3 ml Albuterol/Ipratropium (Duoneb 3 Mg/0.5 Mg (3 Ml) Ud) 3 ml INH RQ2 PRN PRN Reason: Shortness of Breath Amlodipine Besylate (Norvasc) 10 mg PO DAILY [facility] Last Admin: 08/29/18 09:23 Dose: 10 mg Atorvastatin Calcium (Lipitor) 5 mg PO HS [facility] Last Admin: 08/29/18 21:39 Dose: 5 mg Carbidopa/Levodopa (Sinemet) 2 tab PO TID [facility] Last Admin: 08/29/18 16:05 Dose: 2 tab Dimethicone (Proshield Plus Skin Protectant) 1 applic TOP Q8 PRN PRN Reason: Other Last Admin: 08/29/18 09:40 Dose: 1 applic Enoxaparin Sodium (Lovenox) 40 mg SC DAILY [facility]; Protocol Last Admin: 08/29/18 09:42 Dose: 40 mg Escitalopram Oxalate (Lexapro) 10 mg PO DAILY [facility] Last Admin: 08/29/18 09:35 Dose: 10 mg Fentanyl (Fentanyl) 50 mcg IVP Q4H PRN PRN Reason: anxiety/agitation on vent Last Admin: 08/29/18 16:00 Dose: 50 mcg Furosemide (Lasix) 60 mg IVP DAILY [facility] Last Admin: 08/29/18 09:48 Dose: 60 mg Gabapentin (Neurontin) 300 mg PO BID [facility] Last Admin: 08/29/18 16:03 Dose: 300 mg Vancomycin HCl 1.25 gm/ Sodium (Chloride) 250 mls @ 166.667 mls/hr IVPB Q12H [facility]; Protocol Last Admin: 08/30/18 00:14 Dose: 166.667 mls/hr Fentanyl Citrate 2,500 mcg/ (Dextrose) 250 mls @ 6.83 mls/hr IV .Q24H [facility]; Protocol Last Titration: 08/28/18 15:30 Dose: 0 mcg/kg/hr, 0 mls/hr Sodium Chloride (Sodium Chloride 0.9%) 1,000 mls @ 42 mls/hr IV .[id number] [facility] Stop: 08/30/18 11:15 Levofloxacin/Dextrose (Levaquin 500mg) 500 mg in 100 mls @ 100 mls/hr IVPB DAILY [facility]; Protocol Last Admin: 08/29/18 13:42 Dose: 100 mls/hr Potassium Chloride (Potassium Cl 10meq/50ml Sterile Water) 50 mls @ 50 mls/hr IVPB Q1 [facility] Stop: 08/30/18 08:59 Insulin Detemir (Levemir) 30 units SC [facility] Last Admin: 08/29/18 21:38 Dose: 30 units Insulin Human Regular (Humulin R) 0 units SC 0500,1100,1700,2300 [facility]; Protocol Last Admin: 08/30/18 05:19 Dose: 4 unit Levothyroxine Sodium (Synthroid) 150 mcg PO DAILY@0630 [facility] Last Admin: 08/30/18 06:00 Dose: 150 mcg Lisinopril (Zestril) 2.5 mg PO DAILY [facility] Last Admin: 08/29/18 09:36 Dose: 2.5 mg Methylprednisolone (Solu-Medrol) 40 mg IV Q12 [facility] Last Admin: 08/29/18 21:38 Dose: 40 mg Metoprolol Tartrate (Lopressor) 25 mg PO BID [facility] Last Admin: 08/27/18 16:16 Dose: Not Given Midazolam HCl (Versed Inj) 2 mg IV Q4H PRN PRN Reason: agitation/anxiety on vent Last Admin: 08/30/18 04:23 Dose: 2 mg Montelukast Sodium (Singulair) 10 mg PO HS [facility] Last Admin: 08/29/18 21:39 Dose: 10 mg Pantoprazole Sodium (Protonix Inj) 40 mg IVP DAILY [facility] Last Admin: 08/29/18 09:39 Dose: 40 mg Primidone (Mysoline) 100 mg PO HS [facility] Last Admin: 08/29/18 21:39 Dose: 100 mg - Labs Labs: 08/30/18 04:40 08/30/18 04:40 PT 10.6 Seconds (9.8-13.1) 08/23/18 18:55 INR 0.9 08/23/18 18:55 APTT 30.6 Seconds (25.6-37.1) 08/23/18 18:55
[2018-08-30] MEDS: levoFLOXacin 500 mg in D5W 500 MG/100 ML BAG IVPB SCH (09:51)
[2018-08-30] MEDS: Enoxaparin 40 mg Syringe SC SCH (09:52)
[2018-08-30] MEDS: Potassium CL 10 MEQ/50 ML 50 ML IVPB SCH ×2 (09:55→10:55)
[2018-08-30] MEDS: MethylPREDNISolone 40 mg Vial IV SCH ×2 (09:59→21:45)
--- NOTE | 2018-08-30 11:37 | RAD ---
Date of service: 08/30/2018 HISTORY: vented COMPARISON: 08/29/2018 FINDINGS: LUNGS: No active pulmonary disease. PLEURA: Small left pleural effusion. No right pleural effusion. No pneumothorax. CARDIOVASCULAR: No aortic atherosclerotic calcification present. Normal cardiac size. ET tube, NG tube and right central venous infusion port are all grossly unchanged in position. OSSEOUS STRUCTURES: No significant abnormalities. VISUALIZED UPPER ABDOMEN: Normal. OTHER FINDINGS: None. IMPRESSION: Small left pleural effusion. Lines and tubes unchanged. No infiltrate.
--- NOTE | 2018-08-30 13:52 | CP.PCM.PN ---
Subjective - Date & Time of Evaluation Date of Evaluation: 08/30/18 Time of Evaluation: 10:00 - Subjective Subjective: intubated sedated no new cultures Objective - Vital Signs/Intake and Output Vital Signs (last 24 hours): Temp Pulse Resp BP Pulse Ox 98.6 F 77 17 135/64 99 08/30/18 04:00 08/30/18 09:58 08/30/18 05:54 08/30/18 09:58 08/30/18 05:54 Intake and Output: 08/30/18 08/30/18 06:59 18:59 Intake Total 1864 Output Total 1300 Balance 564 - Medications Medications: Current Medications Acetaminophen (Tylenol 325mg Tab) 325 mg PO Q4H PRN PRN Reason: Pain, Mild (1-3) Albuterol/Ipratropium (Duoneb 3 Mg/0.5 Mg (3 Ml) Ud) 3 ml INH RQ4 [facility] Last Admin: 08/30/18 11:03 Dose: 3 ml Albuterol/Ipratropium (Duoneb 3 Mg/0.5 Mg (3 Ml) Ud) 3 ml INH RQ2 PRN PRN Reason: Shortness of Breath Amlodipine Besylate (Norvasc) 10 mg PO DAILY [facility] Last Admin: 08/30/18 09:53 Dose: 10 mg Atorvastatin Calcium (Lipitor) 5 mg PO HS [facility] Last Admin: 08/29/18 21:39 Dose: 5 mg Carbidopa/Levodopa (Sinemet) 2 tab PO TID [facility] Last Admin: 08/30/18 12:32 Dose: 2 tab Dimethicone (Proshield Plus Skin Protectant) 1 applic TOP Q8 PRN PRN Reason: Other Last Admin: 08/29/18 09:40 Dose: 1 applic Enoxaparin Sodium (Lovenox) 40 mg SC DAILY [facility]; Protocol Last Admin: 08/30/18 09:52 Dose: 40 mg Escitalopram Oxalate (Lexapro) 10 mg PO DAILY [facility] Last Admin: 08/30/18 09:52 Dose: 10 mg Fentanyl (Fentanyl) 50 mcg IVP Q4H PRN PRN Reason: anxiety/agitation on vent Last Admin: 08/29/18 16:00 Dose: 50 mcg Furosemide (Lasix) 60 mg IVP DAILY [facility] Last Admin: 08/30/18 09:50 Dose: 60 mg Gabapentin (Neurontin) 300 mg PO BID [facility] Last Admin: 08/30/18 09:53 Dose: 300 mg Fentanyl Citrate 2,500 mcg/ (Dextrose) 250 mls @ 6.83 mls/hr IV .Q24H [facility]; Protocol Last Titration: 08/28/18 15:30 Dose: 0 mcg/kg/hr, 0 mls/hr Levofloxacin/Dextrose (Levaquin 500mg) 500 mg in 100 mls @ 100 mls/hr IVPB DAILY [facility]; Protocol Last Admin: 08/30/18 09:51 Dose: 100 mls/hr Insulin Detemir (Levemir) 30 units SC [facility] Last Admin: 08/29/18 21:38 Dose: 30 units Insulin Human Regular (Humulin R) 0 units SC 0500,1100,1700,2300 [facility]; Protocol Last Admin: 08/30/18 11:30 Dose: 2 unit Levothyroxine Sodium (Synthroid) 150 mcg PO DAILY@0630 [facility] Last Admin: 08/30/18 06:00 Dose: 150 mcg Lisinopril (Zestril) 2.5 mg PO DAILY [facility] Last Admin: 08/30/18 09:58 Dose: 2.5 mg Methylprednisolone (Solu-Medrol) 40 mg IV Q12 [facility] Last Admin: 08/30/18 09:59 Dose: 40 mg Metoprolol Tartrate (Lopressor) 25 mg PO BID [facility] Last Admin: 08/27/18 16:16 Dose: Not Given Midazolam HCl (Versed Inj) 2 mg IV Q4H PRN PRN Reason: agitation/anxiety on vent Last Admin: 08/30/18 04:23 Dose: 2 mg Montelukast Sodium (Singulair) 10 mg PO [facility] Last Admin: 08/29/18 21:39 Dose: 10 mg Pantoprazole Sodium (Protonix Inj) 40 mg IVP DAILY [facility] Last Admin: 08/30/18 09:57 Dose: 40 mg Primidone (Mysoline) 100 mg PO [facility] Last Admin: 08/29/18 21:39 Dose: 100 mg - Labs Labs: 08/30/18 04:40 08/30/18 04:40 PT 10.6 Seconds (9.8-13.1) 08/23/18 18:55 INR 0.9 08/23/18 18:55 APTT 30.6 Seconds (25.6-37.1) 08/23/18 18:55 - Constitutional Appears: Chronically Ill - Head Exam Head Exam: NORMOCEPHALIC - Eye Exam Eye Exam: absent: Scleral icterus - ENT Exam ENT Exam: Mucous Membranes Dry - Neck Exam Neck Exam: absent: Lymphadenopathy - Respiratory Exam Respiratory Exam: Decreased Breath Sounds - Cardiovascular Exam Cardiovascular Exam: REGULAR RHYTHM - GI/Abdominal Exam GI & Abdominal Exam: Distended, Soft - Rectal Exam Rectal Exam: Deferred Assessment and Plan (1) Bacteremia Status: Acute (2) Hypercapnic respiratory failure Status: Acute (3) COPD (chronic obstructive pulmonary disease) Status: Chronic (4) Acute respiratory acidosis Status: Acute (5) Acute respiratory failure with hypercapnia Status: Acute (6) Acute respiratory failure with hypoxia and hypercapnia Status: Acute (7) Altered mental status Status: Acute
--- NOTE | 2018-08-30 16:10 | CP.CCUPN ---
CCU Subjective - Physician Review Subjective (Free Text): Awake and alert, ETT re-positioned thia AM, no distress. Tolerating CPAP PS weans again. Other vitals and I/O's reviewed. Afebrile, SBP 140's, HR 75 sinus, RR 15,on CPAP 5 PS 8; SPo2 100% on 40% oxygen. Urine output 5000 ml last 24H. ROS: No other pertinent negs or positives on 10+ system review. Other PMSFH: All other Nursing and physician documentation reviewed to date; no new pertinent info noted relevant to current medical problems. EXAM- HEENT: no icterus, no gaze preference, Pupils 3 mm and reactive NECK: No JVD visible, supple, carotids equal upstroke bilat/no bruit CHEST: diminished bilat BS, no wheezes audible HEART: regular, distant tachy S1S2, no rubs ABD: soft, obese, no focal tenderness, no guarding, no organomegaly, BS hypoactive. EXT: trace edema, no calf tenderness or palpable cords, distal pulses intact a nd symmetrical. NEURO: moves all 4 limbs spontaneously SKIN: no rashes, warm and dry LABS: WBC= 12.7 HGB= 10.5 PLTs= 179K 7.58/36/98 Na= 135 K= 3.4 CL=97 HCO3= 31 BUN/Cr= 27/0.8 BS= 231 CXR+ ETT position OK above bigg, mild PVC, Left effusion, possible underlying bi-hilar infiltrate with Air B-gram (my interp) IMPRESSION / MAJOR PROBLEMS NOW: 1. Acute on chronic Hypercapneic Resp Failure 2 COPD Exac / Pulm edema 2. r/o Pneumonia versus tracheobronchitis 3. GPC Bacteremia 2 Coag neg Staph, sens to Vanco 4. Morbid Obesity PLAN: 1. More diuresis today as tolerated. 2. Consider extubation again. 3. supplement K 4. Surgical eval; may need removal of existing R chest port-a-cath. 5. Vancomycin re-ordered.
--- NOTE | 2018-08-30 19:13 | CP.PCM.PCO ---
Physician Communication Note - Physician Communication Note Physician Communication Note: consider PORT removal / replacement when possible
[2018-08-30] MEDS: Insulin Detemir 100 Units/ml Inj SC SCH (21:46)
[2018-08-30] MEDS: Pravastatin Sodium 20 MG TAB PO SCH (21:58)
[2018-08-31] MEDS: Albuterol-Ipratrop 3 mg / 0.5 (3 ml) UD INH SCH ×6 (03:54→23:23)
[2018-08-31] MEDS: Insulin Regular 100 units/ml SC SCH ×4 (06:22→22:29)
[2018-08-31] MEDS: Levothyroxine 150 MCG TAB PO SCH (07:21)
[2018-08-31] MEDS: MethylPREDNISolone 40 mg Vial IV SCH ×2 (08:34→21:08)
[2018-08-31] MEDS ORDERED: Potassium Chloride 20 mEq/15 ml LIQ UD NG ONE (10:03)
--- NOTE | 2018-08-31 10:03 | CP.PCM.PN ---
Subjective - Date & Time of Evaluation Date of Evaluation: 08/31/18 Time of Evaluation: 09:45 - Subjective Subjective: Pt was extubated yesterday On Bipap q hs, 3 liters O2 per NC in am Pt denies CP no fever has sl cough denies abd pain she states she has been bed bound for years since she fell and her knees gave in, was told she was not a surgical candidate quit smoking more than 10 yrs ago Objective - Vital Signs/Intake and Output Vital Signs (last 24 hours): Temp Pulse Resp BP Pulse Ox 99.1 F 70 20 129/66 94 L 08/31/18 08:00 08/31/18 08:34 08/31/18 08:00 08/31/18 09:08 08/31/18 08:00 Intake and Output: 08/31/18 08/31/18 06:59 18:59 Intake Total 310 Output Total 1430 Balance -1120 - Medications Medications: Current Medications Acetaminophen (Tylenol 325mg Tab) 325 mg PO Q4H PRN PRN Reason: Pain, Mild (1-3) Albuterol/Ipratropium (Duoneb 3 Mg/0.5 Mg (3 Ml) Ud) 3 ml INH RQ4 [facility] Last Admin: 08/31/18 07:25 Dose: 3 ml Albuterol/Ipratropium (Duoneb 3 Mg/0.5 Mg (3 Ml) Ud) 3 ml INH RQ2 PRN PRN Reason: Shortness of Breath Amlodipine Besylate (Norvasc) 10 mg PO DAILY [facility] Last Admin: 08/31/18 08:33 Dose: 10 mg Carbidopa/Levodopa (Sinemet) 2 tab PO TID [facility] Last Admin: 08/31/18 08:33 Dose: 2 tab Dimethicone (Proshield Plus Skin Protectant) 1 applic TOP Q8 PRN PRN Reason: Other Last Admin: 08/29/18 09:40 Dose: 1 applic Escitalopram Oxalate (Lexapro) 10 mg PO DAILY [facility] Last Admin: 08/31/18 08:32 Dose: 10 mg Fentanyl (Fentanyl) 50 mcg IVP Q4H PRN PRN Reason: anxiety/agitation on vent Last Admin: 08/29/18 16:00 Dose: 50 mcg Furosemide (Lasix) 60 mg IVP DAILY [facility] Last Admin: 08/31/18 09:08 Dose: 60 mg Gabapentin (Neurontin) 300 mg PO BID [facility] Last Admin: 08/31/18 08:33 Dose: 300 mg Fentanyl Citrate 2,500 mcg/ (Dextrose) 250 mls @ 6.83 mls/hr IV .Q24H [facility]; Protocol Last Titration: 08/28/18 15:30 Dose: 0 mcg/kg/hr, 0 mls/hr Levofloxacin/Dextrose (Levaquin 500mg) 500 mg in 100 mls @ 100 mls/hr IVPB DAILY [facility]; Protocol Last Admin: 08/30/18 09:51 Dose: 100 mls/hr Vancomycin HCl 1.25 gm/ Sodium (Chloride) 250 mls @ 166.667 mls/hr IVPB Q12 [facility]; Protocol Last Admin: 08/31/18 08:36 Dose: 166.667 mls/hr Insulin Detemir (Levemir) 30 units SC HS [facility] Last Admin: 08/30/18 21:46 Dose: 30 units Insulin Human Regular (Humulin R) 0 units SC 0500,1100,1700,2300 [facility]; Protocol Last Admin: 08/31/18 06:22 Dose: 1 unit Levothyroxine Sodium (Synthroid) 150 mcg PO DAILY@0630 [facility] Last Admin: 08/31/18 07:21 Dose: 150 mcg Lisinopril (Zestril) 2.5 mg PO DAILY [facility] Last Admin: 08/31/18 08:34 Dose: 2.5 mg Methylprednisolone (Solu-Medrol) 40 mg IV Q12 [facility] Last Admin: 08/31/18 08:34 Dose: 40 mg Metoprolol Tartrate (Lopressor) 25 mg PO BID [facility] Last Admin: 08/27/18 16:16 Dose: Not Given Midazolam HCl (Versed Inj) 2 mg IV Q4H PRN PRN Reason: agitation/anxiety on vent Last Admin: 08/30/18 04:23 Dose: 2 mg Montelukast Sodium (Singulair) 10 mg PO [facility] Last Admin: 08/30/18 21:45 Dose: 10 mg Pantoprazole Sodium (Protonix Inj) 40 mg IVP DAILY [facility] Last Admin: 08/31/18 08:33 Dose: 40 mg Pravastatin Sodium (Pravachol) 20 mg PO [facility] Last Admin: 08/30/18 21:58 Dose: 20 mg Primidone (Mysoline) 100 mg PO HS [facility] Last Admin: 08/30/18 21:48 Dose: 100 mg - Labs Labs: 08/30/18 04:40 08/30/18 04:40 PT 10.6 Seconds (9.8-13.1) 08/23/18 18:55 INR 0.9 08/23/18 18:55 APTT 30.6 Seconds (25.6-37.1) 08/23/18 18:55 - Constitutional Appears: No Acute Distress - Head Exam Head Exam: NORMAL INSPECTION, NORMOCEPHALIC - Eye Exam Eye Exam: EOMI, Normal appearance, PERRL Pupil Exam: NORMAL ACCOMODATION - ENT Exam ENT Exam: Mucous Membranes Moist, Normal External Ear Exam - Neck Exam Neck Exam: Full ROM. absent: Meningismus - Respiratory Exam Respiratory Exam: Rales, Rhonchi, NORMAL BREATHING PATTERN. absent: Wheezes - Cardiovascular Exam Cardiovascular Exam: REGULAR RHYTHM, +S1, +S2 - GI/Abdominal Exam GI & Abdominal Exam: Soft, Normal Bowel Sounds. absent: Tenderness - Extremities Exam Extremities Exam: Normal Capillary Refill. absent: Calf Tenderness Additional comments: able to move extremities in bed - Back Exam Back Exam: absent: CVA tenderness (L), CVA tenderness (R) - Neurological Exam Neurological Exam: Alert, Awake, Oriented x3 - Psychiatric Exam Psychiatric exam: Normal Affect, Normal Mood - Skin Skin Exam: Dry, Normal Color, Warm Assessment and Plan - Assessment and Plan (Free Text) Assessment: 72 years old patient from the [facility],with hx of morbid obesity, Sleep Apnea, Probably obesity hypoventilation, COPD , OA, Parkinsons and DM II insulin requiring, discharged 08/21/18 from , Dx COPD exacerbation with intubation. She comes with one day of SOB and Altered mental status. In the ED her PCO2 was 120 and pH of 7.14. She was intubated immediately. Extubated 08/30 1. Acute on chronic hypercapneic Respiratory Failure sec to COPD exacerbation and OHS - Pt was intubated and was placed on [facility] Ventilation on admission , extubated yesterday - now on Oxygen per NC at 3 liters q daytime and Bipap q hs - Consulted Pulmonary Dr Rhoda Flores tx - cont IV Solumedrol - taper slowly 2. COPD Exacerbation -cont Albuterol/Ipratropium - cont Methylprednisolone 3. Staph Coag negative Bacteremia + on Blood cultures x 2 On IV Vanco , trough elevated , will decrease to once daily ID consulted Discussed case with Dr Ellis- rec to rpt Blood c/s - rpt Blood c/s negative 4. Dehydration - improved with IV Fluids 5.DM type II with Hyperglycemia, Insulin Use - Increase levemir to 40 units q hs - Lispro sliding scale according to accucheck 6. Hypothyroidism - cont Levothyroxine 7. HTN - cont Norvasc , Lisinopril and Metoprolol 8. Parkinson's - cont Sinemet 9. Depression -cont Lexapro #. DVT prophylaxis with SCD and lovenox #. Code Status: Full
[2018-08-31] MEDS: levoFLOXacin 500 mg in D5W 500 MG/100 ML BAG IVPB SCH (10:15)
[2018-08-31 10:39] LABS: HEMOGLOBIN 9.9 g/dL (12.0-16.0); MEAN CELL VOLUME 87.5 fl (81.0-99.0); MEAN CORPUSCULAR HEMOGLOBIN 27.5 pg (27.0-31.0); MEAN CORPUSCULAR HGB CONC 31.4 g/dL (33.0-37.0); RBC 3.6 Mil/uL (3.80-5.20); RED CELL DISTRIBUTION WIDTH 16.9 % (11.5-14.5)
[2018-08-31 10:52] LABS: BLOOD UREA NITROGEN 16 mg/dl (7-17); CALCIUM 7.5 mg/dL (8.4-10.2); GFR NON-AFRICAN AMERICAN > 60
[2018-08-31] MEDS ORDERED: Potassium Chloride 20 mEq ER Tab PO ONE (13:35)
[2018-08-31] MEDS: Pravastatin Sodium 20 MG TAB PO SCH (21:08)
[2018-08-31] MEDS ORDERED: Insulin Detemir 100 Units/ml Inj SC SCH (22:00)
--- NOTE | 2018-09-01 00:59 | PN ---
DATE: 08/31/2018 CRITICAL CARE PROGRESS NOTE LOCATION: The patient in ICU, bed 425. TIME SPENT: 35 minutes. The patient is seen and evaluated at the bedside. Past medical, surgical, family, and social history reviewed. Events since admission noted, overnight extubated. SUBJECTIVE: A 72-year-old morbidly obese female from [facility] with history significant for sleep apnea, obesity hypoventilation syndrome, chronic obstructive pulmonary disease, insulin requiring diabetes mellitus type 2, anxiety, dementia, depression, arthritis, Parkinson's disease, hypothyroidism admitted with hypercapnic hypoxic respiratory failure, status post multiple intubation, now remains extubated, on oxygen supplement 2 liters nasal cannula, saturating over 94% on BiPAP at night. OBJECTIVE: VITAL SIGNS: Temperature 99, heart rate of 70, blood pressure 129/54, mean arterial pressure of 79, respiratory rate 14 to 17 thoracoabdominal. Intake 1157, output 5330, negative balance 4173. Weight approximated 310 pounds. HEAD, EYES, EARS, NOSE, AND THROAT: Pupils 3 mm, reactive. Conjunctivae pink. NECK: Short. Reduced oropharyngeal air space. CHEST: Bilateral breath sounds, markedly diminished. Clear to auscultation anteriorly and laterally. HEART: Rhythm regular. S1, S2 distant. ABDOMEN: Obese. Bowel sounds present. No tenderness. EXTREMITIES: Trace edema. NEUROLOGIC: Alert, awake, oriented to name, place and time. Moves all four extremities. CURRENT MEDICATIONS: Include Tylenol 650 every 4 hours p.r.n., albuterol/Atrovent inhalation 3 mL via nebulizer every 4 hours, Norvasc 10 mg p.o. daily, carbidopa/levodopa two tablets three times daily, dimethicone one application topically every 8 hours p.r.n., Lexapro 10 mg p.o. daily, fentanyl 50 mcg IV every 4 hours p.r.n., Lasix 60 IV daily, Levemir 30 units subcu at night, Accu-Chek with regular insulin coverage, levofloxacin 500 mg IV daily, Synthroid 150 mcg daily, Zestril 2.5 mg p.o. daily, Lopressor 25 mg p.o. b.i.d., Singulair 10 mg at bedtime, Protonix 40 IV daily, Pravachol 20 mg p.o. at bedtime, primidone 100 mg p.o. at bedtime, vancomycin 1.25 g IV daily LABORATORY DATA: WBC 13, hemoglobin 9.9, hematocrit 31.5, platelet count of 154. ABG, pH of 7.58, pCO2 of 36, pO2 of 98, saturation 98% on AC 16, 500, 40%, PEEP of 5. SMA-7: Sodium 135, potassium 2.9, chloride 97, CO2 of 34, blood urea nitrogen 16, creatinine 0.5, random glucose 175, calcium 7.5. Urinalysis, rbc 4, wbc 12. Vancomycin trough level 52.5. Serology influenza A and B negative. Microbiology, blood culture coagulase negative Staph, repeat on 08/25 negative. MRSA nasal smear not detected. IMPRESSION: 1. Neurologic: Alert and awake, status post intubation for hypercapnic respiratory failure, improved. 2. Pulmonary: Status post hypercapnic hypoxic respiratory failure secondary to chronic obstructive pulmonary disease exacerbation, possible obesity hypoventilation syndrome and obstructive sleep apnea to be ruled out. Continue albuterol/Atrovent inhalation, wean off systemic steroid. 3. Cardiac: Hypertension controlled, on Norvasc. 4. Hyperlipidemia, on Lipitor. 5. Psychiatric: Major depression with anxiety, on Lexapro and gabapentin. 6. Endocrine: History of for diabetes mellitus type 2, on Accu-Chek with regular insulin coverage. Hypothyroidism levothyroxine. 7. Gastrointestinal: No acute issues. Continue gastrointestinal prophylaxis. Keep head of bed 30 degrees up. 8. Renal: Hypokalemia, supplement. Follow magnesium level. Timbo Fuentes MD
[2018-09-01] MEDS: Albuterol-Ipratrop 3 mg / 0.5 (3 ml) UD INH SCH ×7 (03:27→23:26)
[2018-09-01] MEDS: Insulin Regular 100 units/ml SC SCH ×4 (05:52→22:50)
[2018-09-01] MEDS: Levothyroxine 150 MCG TAB PO SCH (05:52)
[2018-09-01 07:08] LABS: BASO % 0.1 % (0.0-2.0); EOS % 0.1 % (0.0-4.0); HEMOGLOBIN 10.3 g/dL (12.0-16.0); LYMPH # 0.6 K/uL (1.0-4.3); LYMPH % 4.8 % (20.0-40.0); MEAN CELL VOLUME 87.7 fl (81.0-99.0); MEAN CORPUSCULAR HEMOGLOBIN 27.5 pg (27.0-31.0); MEAN CORPUSCULAR HGB CONC 31.3 g/dL (33.0-37.0); MEAN PLATELET VOLUME 10.2 fl (7.2-11.7); MONO # 0.6 K/uL (0.0-0.8); MONO % 4.6 % (0.0-10.0); NEUT # 11.3 K/uL (1.8-7.0); NEUT % 90.4 % (50.0-75.0); RBC 3.76 Mil/uL (3.80-5.20); RED CELL DISTRIBUTION WIDTH 16.3 % (11.5-14.5); WHITE BLOOD COUNT 12.5 K/uL (4.8-10.8)
[2018-09-01 07:38] LABS: BLOOD UREA NITROGEN 22 mg/dl (7-17); CALCIUM 8.2 mg/dL (8.4-10.2); GFR NON-AFRICAN AMERICAN > 60
[2018-09-01] MEDS: levoFLOXacin 500 mg in D5W 500 MG/100 ML BAG IVPB SCH (08:40)
[2018-09-01] MEDS: MethylPREDNISolone 40 mg Vial IV SCH ×3 (08:43→21:24)
--- NOTE | 2018-09-01 09:28 | CP.PCM.PN ---
Subjective - Date & Time of Evaluation Date of Evaluation: 09/01/18 Time of Evaluation: 09:25 - Subjective Subjective: Patient awake, alert eating breakfast Objective - Vital Signs/Intake and Output Vital Signs (last 24 hours): Temp Pulse Resp BP Pulse Ox 98.6 F 81 15 129/92 H 100 09/01/18 08:00 09/01/18 08:46 09/01/18 06:00 09/01/18 08:46 09/01/18 06:00 Intake and Output: 09/01/18 09/01/18 06:59 18:59 Intake Total 20 Balance 20 - Medications Medications: Current Medications Acetaminophen (Tylenol 325mg Tab) 325 mg PO Q4H PRN PRN Reason: Pain, Mild (1-3) Albuterol/Ipratropium (Duoneb 3 Mg/0.5 Mg (3 Ml) Ud) 3 ml INH RQ4 [facility] Last Admin: 09/01/18 07:33 Dose: 3 ml Amlodipine Besylate (Norvasc) 10 mg PO DAILY [facility] Last Admin: 09/01/18 08:43 Dose: 10 mg Carbidopa/Levodopa (Sinemet) 2 tab PO TID [facility] Last Admin: 09/01/18 08:43 Dose: 2 tab Dimethicone (Proshield Plus Skin Protectant) 1 applic TOP Q8 PRN PRN Reason: Other Last Admin: 08/29/18 09:40 Dose: 1 applic Escitalopram Oxalate (Lexapro) 10 mg PO DAILY [facility] Last Admin: 09/01/18 08:41 Dose: 10 mg Furosemide (Lasix) 60 mg IVP DAILY [facility] Last Admin: 09/01/18 08:39 Dose: 60 mg Gabapentin (Neurontin) 300 mg PO BID [facility] Last Admin: 09/01/18 08:42 Dose: 300 mg Levofloxacin/Dextrose (Levaquin 500mg) 500 mg in 100 mls @ 100 mls/hr IVPB DAILY [facility]; Protocol Last Admin: 09/01/18 08:40 Dose: 100 mls/hr Vancomycin HCl 1.25 gm/ Sodium (Chloride) 250 mls @ 166.667 mls/hr IVPB DAILY [facility]; Protocol Insulin Detemir (Levemir) 40 units SC HS [facility] Last Admin: 08/31/18 22:32 Dose: 30 unit Insulin Human Regular (Humulin R) 0 units SC 0500,1100,1700,2300 [facility]; Protocol Last Admin: 09/01/18 05:52 Dose: 3 unit Levothyroxine Sodium (Synthroid) 150 mcg PO DAILY@0630 [facility] Last Admin: 09/01/18 05:52 Dose: 150 mcg Lisinopril (Zestril) 2.5 mg PO DAILY [facility] Last Admin: 09/01/18 08:44 Dose: 2.5 mg Methylprednisolone (Solu-Medrol) 30 mg IV Q12 [facility] Metoprolol Tartrate (Lopressor) 25 mg PO BID [facility] Last Admin: 09/01/18 08:46 Dose: 25 mg Montelukast Sodium (Singulair) 10 mg PO HS [facility] Last Admin: 08/31/18 21:08 Dose: 10 mg Pantoprazole Sodium (Protonix Inj) 40 mg IVP DAILY [facility] Last Admin: 09/01/18 08:43 Dose: 40 mg Pravastatin Sodium (Pravachol) 20 mg PO HS [facility] Last Admin: 08/31/18 21:08 Dose: 20 mg - Labs Labs: 09/01/18 05:30 09/01/18 05:30 PT 10.6 Seconds (9.8-13.1) 08/23/18 18:55 INR 0.9 08/23/18 18:55 APTT 30.6 Seconds (25.6-37.1) 08/23/18 18:55 - Constitutional Appears: Well, Non-toxic, No Acute Distress - Eye Exam Eye Exam: EOMI - ENT Exam ENT Exam: Mucous Membranes Moist - Respiratory Exam Respiratory Exam: Clear to Ausculation Bilateral, Rales, NORMAL BREATHING PATTERN - Cardiovascular Exam Cardiovascular Exam: REGULAR RHYTHM, +S1, +S2 - GI/Abdominal Exam GI & Abdominal Exam: Soft, Normal Bowel Sounds. absent: Guarding, Tenderness - Extremities Exam Extremities Exam: Pedal Edema - Neurological Exam Neurological Exam: Alert, Awake, Oriented x3 - Skin Skin Exam: Normal Color Assessment and Plan - Assessment and Plan (Free Text) Assessment: 72 yo F with PMH of COPD, obstructive sleep apnea/obesity hypoventilation syndrome, bipolar disorder, depression, and Parkinson's disease who has been admitted to [facility] icu for hypercapneic respiratory failure -Hypercapnic Respiratory Failure- acute on chronic: contineue bi-pap , avoid any sedations whcih can affect the respiratory drive -Chronic Diastolic HF: continue current regimen -Aspiration/lobar Pneumonia:contine empirical abx, de-escalate as seisitivity -continue dvt/pud ppx -Continue all other [facility] medications Patient needs 3 liter NC during the day and bi-pap at night Patient remains hemodynamicallu stable
--- NOTE | 2018-09-01 10:43 | CP.PCM.PN ---
Subjective - Date & Time of Evaluation Date of Evaluation: 09/01/18 Time of Evaluation: 10:00 - Subjective Subjective: No fever On 3 liters Oxygen per NC , good saturation On Bipap q hs no cough minimal SOB no CP no abd pain complains of constipation Objective - Vital Signs/Intake and Output Vital Signs (last 24 hours): Temp Pulse Resp BP Pulse Ox 98.6 F 81 15 129/92 H 100 09/01/18 08:00 09/01/18 08:46 09/01/18 06:00 09/01/18 08:46 09/01/18 06:00 Intake and Output: 09/01/18 09/01/18 06:59 18:59 Intake Total 20 Balance 20 - Medications Medications: Current Medications Acetaminophen (Tylenol 325mg Tab) 325 mg PO Q4H PRN PRN Reason: Pain, Mild (1-3) Albuterol/Ipratropium (Duoneb 3 Mg/0.5 Mg (3 Ml) Ud) 3 ml INH RQ4 [facility] Last Admin: 09/01/18 07:33 Dose: 3 ml Amlodipine Besylate (Norvasc) 10 mg PO DAILY [facility] Last Admin: 09/01/18 08:43 Dose: 10 mg Carbidopa/Levodopa (Sinemet) 2 tab PO TID [facility] Last Admin: 09/01/18 08:43 Dose: 2 tab Dimethicone (Proshield Plus Skin Protectant) 1 applic TOP Q8 PRN PRN Reason: Other Last Admin: 08/29/18 09:40 Dose: 1 applic Docusate Sodium (Colace) 100 mg PO BID [facility] Escitalopram Oxalate (Lexapro) 10 mg PO DAILY [facility] Last Admin: 09/01/18 08:41 Dose: 10 mg Furosemide (Lasix) 60 mg IVP DAILY [facility] Last Admin: 09/01/18 08:39 Dose: 60 mg Gabapentin (Neurontin) 300 mg PO BID [facility] Last Admin: 09/01/18 08:42 Dose: 300 mg Levofloxacin/Dextrose (Levaquin 500mg) 500 mg in 100 mls @ 100 mls/hr IVPB DAILY [facility]; Protocol Last Admin: 09/01/18 08:40 Dose: 100 mls/hr Vancomycin HCl 1.25 gm/ Sodium (Chloride) 250 mls @ 166.667 mls/hr IVPB DAILY [facility]; Protocol Insulin Detemir (Levemir) 40 units SC [facility] Last Admin: 08/31/18 22:32 Dose: 30 unit Insulin Human Regular (Humulin R) 0 units SC 0500,1100,1700,2300 [facility]; Protocol Last Admin: 09/01/18 05:52 Dose: 3 unit Levothyroxine Sodium (Synthroid) 150 mcg PO DAILY@0630 [facility] Last Admin: 09/01/18 05:52 Dose: 150 mcg Lisinopril (Zestril) 2.5 mg PO DAILY [facility] Last Admin: 09/01/18 08:44 Dose: 2.5 mg Methylprednisolone (Solu-Medrol) 30 mg IV Q12 [facility] Metoprolol Tartrate (Lopressor) 25 mg PO BID [facility] Last Admin: 09/01/18 08:46 Dose: 25 mg Montelukast Sodium (Singulair) 10 mg PO [facility] Last Admin: 08/31/18 21:08 Dose: 10 mg Pantoprazole Sodium (Protonix Ec Tab) 40 mg PO DAILY [facility] Pravastatin Sodium (Pravachol) 20 mg PO [facility] Last Admin: 08/31/18 21:08 Dose: 20 mg - Labs Labs: 09/01/18 05:30 09/01/18 05:30 PT 10.6 Seconds (9.8-13.1) 08/23/18 18:55 INR 0.9 08/23/18 18:55 APTT 30.6 Seconds (25.6-37.1) 08/23/18 18:55 - Constitutional Appears: No Acute Distress - Head Exam Head Exam: NORMAL INSPECTION, NORMOCEPHALIC - Eye Exam Eye Exam: EOMI, Normal appearance, PERRL Pupil Exam: NORMAL ACCOMMODATION - ENT Exam ENT Exam: Mucous Membranes Moist, Normal External Ear Exam - Neck Exam Neck Exam: Full ROM. absent: Meningismus - Respiratory Exam Respiratory Exam: Rales, Rhonchi, NORMAL BREATHING PATTERN. absent: Wheezes - Cardiovascular Exam Cardiovascular Exam: REGULAR RHYTHM, +S1, +S2 - GI/Abdominal Exam GI & Abdominal Exam: Soft, Normal Bowel Sounds. absent: Tenderness - Extremities Exam Extremities Exam: Normal Capillary Refill. absent: Calf Tenderness Additional comments: able to move extremities in bed - Back Exam Back Exam: absent: CVA tenderness (L), CVA tenderness (R) - Neurological Exam Neurological Exam: Alert, Awake, Oriented x3 - Psychiatric Exam Psychiatric exam: Normal Affect, Normal Mood - Skin Skin Exam: Dry, Normal Color, Warm Assessment and Plan - Assessment and Plan (Free Text) Assessment: 72 years old patient from the [facility],with hx of morbid obesity, Sleep Apnea, Probably obesity hypoventilation, COPD , OA, Parkinsons and DM II insulin requiring, discharged 08/21/18 from [facility], Dx COPD exacerbation with intubation. She comes with one day of SOB and Altered mental status. In the ED her PCO2 was 120 and pH of 7.14. She was intubated immediately. Extubated 08/30 1. Acute on chronic hypercapneic Respiratory Failure sec to COPD exacerbation and OHS - Pt was intubated and was placed on [facility] Ventilation on admission , extubated 08/30 - now on Oxygen per NC at 3 liters q daytime and Bipap q hs - Consulted Pulmonary Dr Rhoda Flores tx - cont IV Solumedrol - taper slowly 2. COPD Exacerbation -cont Albuterol/Ipratropium - cont Methylprednisolone 3. Staph Coag negative Bacteremia + on Blood cultures x 2 On IV Vanco , trough elevated , decrease to once daily ID consulted rpt Blood c/s negative 4. Dehydration - improved with IV Fluids 5.DM type II with Hyperglycemia, Insulin Use worsened by Steroids - Increase levemir to 45 units q hs - Lispro sliding scale according to accucheck 6. Hypothyroidism - cont Levothyroxine 7. HTN - cont Norvasc , Lisinopril and Metoprolol 8. Parkinson's - cont Sinemet 9. Depression -cont Lexapro #. DVT prophylaxis with SCD and lovenox #. Code Status: Full
--- NOTE | 2018-09-01 13:25 | CP.PCM.PN ---
Subjective - Date & Time of Evaluation Date of Evaluation: 09/01/18 Time of Evaluation: 09:00 - Subjective Subjective: AFEBRILE CONSTIPATED NAD Objective - Vital Signs/Intake and Output Vital Signs (last 24 hours): Temp Pulse Resp BP Pulse Ox 99.3 F 78 18 125/83 95 09/01/18 12:00 09/01/18 12:00 09/01/18 12:00 09/01/18 12:00 09/01/18 12:00 Intake and Output: 09/01/18 09/01/18 06:59 18:59 Intake Total 20 Balance 20 - Medications Medications: Current Medications Acetaminophen (Tylenol 325mg Tab) 325 mg PO Q4H PRN PRN Reason: Pain, Mild (1-3) Albuterol/Ipratropium (Duoneb 3 Mg/0.5 Mg (3 Ml) Ud) 3 ml INH RQ4 [facility] Last Admin: 09/01/18 11:50 Dose: Not Given Amlodipine Besylate (Norvasc) 10 mg PO DAILY [facility] Last Admin: 09/01/18 08:43 Dose: 10 mg Carbidopa/Levodopa (Sinemet) 2 tab PO TID [facility] Last Admin: 09/01/18 13:02 Dose: 2 tab Dimethicone (Proshield Plus Skin Protectant) 1 applic TOP Q8 PRN PRN Reason: Other Last Admin: 08/29/18 09:40 Dose: 1 applic Docusate Sodium (Colace) 100 mg PO BID [facility] Escitalopram Oxalate (Lexapro) 10 mg PO DAILY [facility] Last Admin: 09/01/18 08:41 Dose: 10 mg Furosemide (Lasix) 60 mg IVP DAILY [facility] Last Admin: 09/01/18 08:39 Dose: 60 mg Gabapentin (Neurontin) 300 mg PO BID [facility] Last Admin: 09/01/18 08:42 Dose: 300 mg Vancomycin HCl 1.25 gm/ Sodium (Chloride) 250 mls @ 166.667 mls/hr IVPB DAILY [facility]; Protocol Last Admin: 09/01/18 11:29 Dose: 166.667 mls/hr Insulin Detemir (Levemir) 45 units SC HS [facility] Insulin Human Regular (Humulin R) 0 units SC 0500,1100,1700,2300 [facility]; Protocol Last Admin: 09/01/18 12:05 Dose: 1 unit Levothyroxine Sodium (Synthroid) 150 mcg PO DAILY@0630 [facility] Last Admin: 09/01/18 05:52 Dose: 150 mcg Lisinopril (Zestril) 2.5 mg PO DAILY [facility] Last Admin: 09/01/18 08:44 Dose: 2.5 mg Methylprednisolone (Solu-Medrol) 30 mg IV Q12 [facility] Metoprolol Tartrate (Lopressor) 25 mg PO BID [facility] Last Admin: 09/01/18 08:46 Dose: 25 mg Montelukast Sodium (Singulair) 10 mg PO HS [facility] Last Admin: 08/31/18 21:08 Dose: 10 mg Pantoprazole Sodium (Protonix Ec Tab) 40 mg PO DAILY [facility] Pravastatin Sodium (Pravachol) 20 mg PO [facility] Last Admin: 08/31/18 21:08 Dose: 20 mg - Labs Labs: 09/01/18 05:30 09/01/18 05:30 PT 10.6 Seconds (9.8-13.1) 08/23/18 18:55 INR 0.9 08/23/18 18:55 APTT 30.6 Seconds (25.6-37.1) 08/23/18 18:55 - Constitutional Appears: Well - Head Exam Head Exam: ATRAUMATIC, NORMAL INSPECTION, NORMOCEPHALIC - Eye Exam Eye Exam: EOMI, Normal appearance, PERRL Pupil Exam: NORMAL ACCOMODATION, PERRL - ENT Exam ENT Exam: Mucous Membranes Moist, Normal Exam - Neck Exam Neck Exam: Full ROM, Normal Inspection. absent: Lymphadenopathy - Respiratory Exam Respiratory Exam: Clear to Ausculation Bilateral, NORMAL BREATHING PATTERN - Cardiovascular Exam Cardiovascular Exam: REGULAR RHYTHM, +S1, +S2. absent: Murmur - GI/Abdominal Exam GI & Abdominal Exam: Soft, Normal Bowel Sounds. absent: Tenderness - Rectal Exam Rectal Exam: NORMAL INSPECTION - Extremities Exam Extremities Exam: Full ROM, Normal Capillary Refill, Normal Inspection. absent: Joint Swelling, Pedal Edema - Back Exam Back Exam: NORMAL INSPECTION - Neurological Exam Neurological Exam: Alert, Awake, CN II-XII Intact, Normal Gait, Oriented x3 - Psychiatric Exam Psychiatric exam: Normal Affect, Normal Mood - Skin Skin Exam: Dry, Intact, Normal Color, Warm Assessment and Plan (1) Bacteremia Status: Acute (2) Hypercapnic respiratory failure Status: Acute (3) COPD (chronic obstructive pulmonary disease) Status: Chronic (4) Acute respiratory acidosis Status: Acute (5) Acute respiratory failure with hypercapnia Status: Acute (6) Acute respiratory failure with hypoxia and hypercapnia Status: Acute (7) Altered mental status Status: Acute
[2018-09-01 14:49] LABS: LYMPHOCYTE 9 % (20-50); MONOCYTE 5 % (0-10); NEUTROPHIL 86 % (42-75); TOTAL CELLS COUNTED 100
[2018-09-01 14:51] LABS: ANISOCYTOSIS SLIGHT; HYPOCHROMIC SLIGHT; PLATELET ESTIMATE SLIGHTLY DECREASED (NORMAL)
[2018-09-01 15:27] LABS: PLATELET COUNT 114 K/uL (130-400)
[2018-09-01] MEDS: Pravastatin Sodium 20 MG TAB PO SCH (21:22)
[2018-09-01] MEDS ORDERED: Insulin Detemir 100 Units/ml Inj SC SCH (22:00)
[2018-09-02] MEDS: Albuterol-Ipratrop 3 mg / 0.5 (3 ml) UD INH SCH ×5 (04:39→19:41)
[2018-09-02] MEDS: Insulin Regular 100 units/ml SC SCH ×4 (06:00→22:05)
[2018-09-02] MEDS: Levothyroxine 150 MCG TAB PO SCH ×2 (06:04→06:05)
[2018-09-02 06:08] LABS: HEMOGLOBIN 11.8 g/dL (12.0-16.0); MEAN CELL VOLUME 87.4 fl (81.0-99.0); MEAN CORPUSCULAR HEMOGLOBIN 27.7 pg (27.0-31.0); MEAN CORPUSCULAR HGB CONC 31.6 g/dL (33.0-37.0); RBC 4.26 Mil/uL (3.80-5.20); RED CELL DISTRIBUTION WIDTH 16.5 % (11.5-14.5); WHITE BLOOD COUNT 15.8 K/uL (4.8-10.8)
[2018-09-02 06:32] LABS: BLOOD UREA NITROGEN 27 mg/dl (7-17); CALCIUM 8.4 mg/dL (8.4-10.2); GFR NON-AFRICAN AMERICAN > 60
[2018-09-02] MEDS: MethylPREDNISolone 40 mg Vial IV SCH ×2 (08:32→22:04)
[2018-09-02] MEDS: Pantoprazole 40 mg EC Tab PO SCH (08:33)
--- NOTE | 2018-09-02 09:11 | CP.PCM.PN ---
<SerjiovioletjorgeEdgardoa - Last Filed: 09/02/18 11:10> Subjective - Date & Time of Evaluation Date of Evaluation: 09/02/18 Time of Evaluation: 08:20 - Subjective Subjective: Pt seen/evaluated this morning at bedside; resting comfortably in bed. Was wearing BIPAP mask, which was then removed and she was put on nasal canula. Has bowel movement yesterday. No chest pain. Reports breathing better. No specific complaints/concerns. Objective - Vital Signs/Intake and Output Vital Signs (last 24 hours): Temp Pulse Resp BP Pulse Ox 98 F 60 20 135/80 100 09/02/18 08:18 09/02/18 08:34 09/02/18 08:18 09/02/18 08:36 09/02/18 08:18 Intake and Output: 09/02/18 09/02/18 06:59 18:59 Intake Total 1210 Output Total 800 Balance 410 - Medications Medications: Current Medications Acetaminophen (Tylenol 325mg Tab) 325 mg PO Q4H PRN PRN Reason: Pain, Mild (1-3) Albuterol/Ipratropium (Duoneb 3 Mg/0.5 Mg (3 Ml) Ud) 3 ml INH RQ4 [facility] Last Admin: 09/02/18 08:04 Dose: 3 ml Amlodipine Besylate (Norvasc) 10 mg PO DAILY [facility] Last Admin: 09/02/18 08:33 Dose: 10 mg Carbidopa/Levodopa (Sinemet) 2 tab PO TID [facility] Last Admin: 09/02/18 08:30 Dose: 2 tab Dimethicone (Proshield Plus Skin Protectant) 1 applic TOP Q8 PRN PRN Reason: Other Last Admin: 08/29/18 09:40 Dose: 1 applic Docusate Sodium (Colace) 100 mg PO BID [facility] Last Admin: 09/02/18 08:35 Dose: 100 mg Escitalopram Oxalate (Lexapro) 10 mg PO DAILY [facility] Last Admin: 09/02/18 08:34 Dose: 10 mg Furosemide (Lasix) 60 mg IVP DAILY [facility] Last Admin: 09/02/18 08:36 Dose: 60 mg Gabapentin (Neurontin) 300 mg PO BID [facility] Last Admin: 09/02/18 08:34 Dose: 300 mg Vancomycin HCl 1.25 gm/ Sodium (Chloride) 250 mls @ 166.667 mls/hr IVPB DAILY [facility]; Protocol Last Admin: 09/02/18 08:32 Dose: 166.667 mls/hr Insulin Detemir (Levemir) 45 units SC [facility] Last Admin: 09/01/18 22:51 Dose: 45 u Insulin Human Regular (Humulin R) 0 units SC 0500,1100,1700,2300 [facility]; Protocol Last Admin: 09/02/18 06:00 Dose: 3 unit Levothyroxine Sodium (Synthroid) 150 mcg PO DAILY@0630 [facility] Last Admin: 09/02/18 06:05 Dose: 150 mcg Lisinopril (Zestril) 2.5 mg PO DAILY [facility] Last Admin: 09/02/18 08:33 Dose: 2.5 mg Methylprednisolone (Solu-Medrol) 30 mg IV Q12 [facility] Last Admin: 09/02/18 08:32 Dose: 30 mg Metoprolol Tartrate (Lopressor) 25 mg PO BID [facility] Last Admin: 09/02/18 08:34 Dose: 25 mg Montelukast Sodium (Singulair) 10 mg PO [facility] Last Admin: 09/01/18 21:22 Dose: 10 mg Pantoprazole Sodium (Protonix Ec Tab) 40 mg PO DAILY [facility] Last Admin: 09/02/18 08:33 Dose: 40 mg Pravastatin Sodium (Pravachol) 20 mg PO [facility] Last Admin: 09/01/18 21:22 Dose: 20 mg - Labs Labs: 09/02/18 04:20 09/02/18 04:20 PT 10.6 Seconds (9.8-13.1) 08/23/18 18:55 INR 0.9 08/23/18 18:55 APTT 30.6 Seconds (25.6-37.1) 08/23/18 18:55 - Constitutional Appears: Non-toxic, No Acute Distress - Eye Exam Eye Exam: Normal appearance - Respiratory Exam Respiratory Exam: Decreased Breath Sounds (equal bilaterally throughout; good air movement), NORMAL BREATHING PATTERN. absent: Respiratory Distress - Cardiovascular Exam Cardiovascular Exam: REGULAR RHYTHM, +S1, +S2 - GI/Abdominal Exam GI & Abdominal Exam: Soft (obese). absent: Tenderness - Extremities Exam Extremities Exam: absent: Calf Tenderness - Neurological Exam Neurological Exam: Alert, Awake Assessment and Plan - Assessment and Plan (Free Text) Assessment: 72 years old patient from the [facility], with hx of morbid obesity, sleep apnea, likely obesity hypoventilation syndrome, COPD, OA, Parkinsons and IDDM, recently discharged 08/21/18 from [facility] [place]; admitted to [facility] with dx COPD exacerbation with intubation. Pt presented with 1 day of SOB and altered mental status, was found to have pCO2 of 120 and pH 7.14; she was intubated immediately and admitted to ICU. Pt was extubated 08/30/18, and is currently using BIPAP at night and NC during the day; has been downgraded to telemetry. Plan: 1. Acute on Chronic Hypercapnic Respiratory Failure, Secondary to COPD Exacerbation and OHS - Pt was intubated and was placed on [facility] Ventilation on admission, extubated 08/30 - Now on oxygen per NC at 3 liters during the daytime and BIPAP at nighttime - Consulted Pulmonary Dr Rhoda Flores Q4hs - Cont IV Solumedrol taper - currently 30 mg 2. COPD Exacerbation - Cont Albuterol/Ipratropium - Cont Methylprednisolone 3. Staph Coag Negative Bacteremia - Positive blood cultures x 2 - On IV Vanco, trough elevated , decrease to once daily - ID consulted - Rpt Blood c/s negative 4. Dehydration - Improved with IV Fluids - Pseudohyponatremia, Na 130, corrected is 135 based on glucose level 5.DM type II with Hyperglycemia, Insulin Use - Hyperglycemia exacerbated by steroids - Increase Levemir 50 units qhs - Lispro sliding scale according to accucheck 6. Hypothyroidism - Continue Levothyroxine 7. HTN - Cont Norvasc , Lisinopril and Metoprolol 8. Dyslipidemia - Continue pravastatin 9. Parkinson's - Cont Sinemet 10. Depression - Cont Lexapro 11. DVT prophylaxis - SCD and lovenox 12. Code Status - Full <Annika Mishra - Last Filed: 09/02/18 14:46> Objective - Vital Signs/Intake and Output Vital Signs (last 24 hours): Temp Pulse Resp BP Pulse Ox 99.1 F 61 20 116/65 97 09/02/18 12:59 09/02/18 12:59 09/02/18 12:59 09/02/18 12:59 09/02/18 12:59 Intake and Output: 09/02/18 09/02/18 06:59 18:59 Intake Total 1210 Output Total 800 Balance 410 - Medications Medications: Current Medications Acetaminophen (Tylenol 325mg Tab) 325 mg PO Q4H PRN PRN Reason: Pain, Mild (1-3) Albuterol/Ipratropium (Duoneb 3 Mg/0.5 Mg (3 Ml) Ud) 3 ml INH RQ4 [facility] Last Admin: 09/02/18 11:04 Dose: 3 ml Amlodipine Besylate (Norvasc) 10 mg PO DAILY [facility] Last Admin: 09/02/18 08:33 Dose: 10 mg Carbidopa/Levodopa (Sinemet) 2 tab PO TID [facility] Last Admin: 09/02/18 13:03 Dose: 2 tab Dimethicone (Proshield Plus Skin Protectant) 1 applic TOP Q8 PRN PRN Reason: Other Last Admin: 08/29/18 09:40 Dose: 1 applic Docusate Sodium (Colace) 100 mg PO BID [facility] Last Admin: 09/02/18 08:35 Dose: 100 mg Escitalopram Oxalate (Lexapro) 10 mg PO DAILY [facility] Last Admin: 09/02/18 08:34 Dose: 10 mg Furosemide (Lasix) 60 mg IVP DAILY [facility] Last Admin: 09/02/18 08:36 Dose: 60 mg Gabapentin (Neurontin) 300 mg PO BID [facility] Last Admin: 09/02/18 08:34 Dose: 300 mg Vancomycin HCl 1.25 gm/ Sodium (Chloride) 250 mls @ 166.667 mls/hr IVPB DAILY [facility]; Protocol Last Admin: 09/02/18 08:32 Dose: 166.667 mls/hr Insulin Detemir (Levemir) 50 units SC HS [facility] Insulin Human Regular (Humulin R) 0 units SC 0500,1100,1700,2300 [facility]; Protocol Last Admin: 09/02/18 13:03 Dose: 4 unit Levothyroxine Sodium (Synthroid) 150 mcg PO DAILY@0630 [facility] Last Admin: 09/02/18 06:05 Dose: 150 mcg Lisinopril (Zestril) 2.5 mg PO DAILY [facility] Last Admin: 09/02/18 08:33 Dose: 2.5 mg Methylprednisolone (Solu-Medrol) 30 mg IV Q12 [facility] Last Admin: 09/02/18 08:32 Dose: 30 mg Metoprolol Tartrate (Lopressor) 25 mg PO BID [facility] Last Admin: 09/02/18 08:34 Dose: 25 mg Montelukast Sodium (Singulair) 10 mg PO HS [facility] Last Admin: 09/01/18 21:22 Dose: 10 mg Pantoprazole Sodium (Protonix Ec Tab) 40 mg PO DAILY [facility] Last Admin: 09/02/18 08:33 Dose: 40 mg Pravastatin Sodium (Pravachol) 20 mg PO HS [facility] Last Admin: 09/01/18 21:22 Dose: 20 mg - Labs Labs: 09/02/18 04:20 09/02/18 04:20 PT 10.6 Seconds (9.8-13.1) 08/23/18 18:55 INR 0.9 08/23/18 18:55 APTT 30.6 Seconds (25.6-37.1) 08/23/18 18:55 Attending/Attestation - Attestation I have personally seen and examined this patient.: Yes I have fully participated in the care of the patient.: Yes I have reviewed all pertinent clinical information, including history, physical exam and plan: Yes
[2018-09-02] MEDS: Pravastatin Sodium 20 MG TAB PO SCH (21:22)
[2018-09-02] MEDS: Insulin Detemir 100 Units/ml Inj SC SCH (22:09)
[2018-09-03] MEDS: Albuterol-Ipratrop 3 mg / 0.5 (3 ml) UD INH SCH ×6 (00:01→20:01)
[2018-09-03] MEDS: Insulin Regular 100 units/ml SC SCH ×4 (06:41→22:01)
[2018-09-03] MEDS: Levothyroxine 150 MCG TAB PO SCH (06:43)
[2018-09-03] MEDS ORDERED: Insulin Detemir 100 Units/ml Inj SC STA (08:25)
[2018-09-03] MEDS ORDERED: MethylPREDNISolone 40 mg Vial IVP SCH (09:00)
[2018-09-03] MEDS ORDERED: methylPREDNISolone 40 MG in Sodium Chloride 0.9% 50 ML IVPB SCH (09:00)
[2018-09-03] MEDS: Pantoprazole 40 mg EC Tab PO SCH (09:32)
--- NOTE | 2018-09-03 11:30 | CP.PCM.DIS ---
<SerjioivoletjorgeEdgardoa - Last Filed: 09/03/18 12:02> Provider - Provider Date of Admission: 08/23/18 20:05 Attending physician: Rasta Becker Consults: Pulmonology Infectious Disease Time Spent in preparation of Discharge (in minutes): 30 Hospital Course - Lab Results Lab Results: Micro Results 09/01/18 19:00 Naris MRSA Culture (Admit) - Final MRSA NOT DETECTED 08/25/18 14:48 Blood-Thru Central Line Blood Culture - Final NO GROWTH AFTER 5 DAYS 08/25/18 14:48 Blood-Thru Central Line Gram Stain - Final TEST NOT PERFORMED 08/25/18 14:48 Blood-Thru Central Line Blood Culture - Final NO GROWTH AFTER 5 DAYS 08/25/18 14:48 Blood-Thru Central Line Gram Stain - Final TEST NOT PERFORMED 08/23/18 18:30 Blood Blood Culture - Final Coagulase Neg Staphylococcus 08/23/18 18:30 Blood Gram Stain - Final 08/23/18 18:45 Blood S.aureus & Coag-Neg Staph PNA FISH - Final 08/23/18 18:45 Blood Blood Culture - Final Coagulase Neg Staphylococcus 08/23/18 18:45 Blood Gram Stain - Final 08/24/18 10:51 Naris MRSA Culture (Admit) - Final MRSA NOT DETECTED 08/23/18 18:40 Urine Urine Culture - Final No Growth (<1,000 CFU/ML) Most Recent Lab Values WBC 15.8 K/uL (4.8-10.8) H 09/02/18 04:20 RBC 4.26 Mil/uL (3.80-5.20) 09/02/18 04:20 Hgb 11.8 g/dL (12.0-16.0) L 09/02/18 04:20 Hct 37.3 % (34.0-47.0) 09/02/18 04:20 MCV 87.4 fl (81.0-99.0) 09/02/18 04:20 MCH 27.7 pg (27.0-31.0) 09/02/18 04:20 MCHC 31.6 g/dL (33.0-37.0) L 09/02/18 04:20 RDW 16.5 % (11.5-14.5) H 09/02/18 04:20 Plt Count 168 K/uL (130-400) 09/02/18 04:20 MPV 10.2 fl (7.2-11.7) 09/01/18 05:30 Neut % (Auto) 90.4 % (50.0-75.0) H 09/01/18 05:30 Lymph % (Auto) 4.8 % (20.0-40.0) L 09/01/18 05:30 [place] % (Auto) 4.6 % (0.0-10.0) 09/01/18 05:30 Eos % (Auto) 0.1 % (0.0-4.0) 09/01/18 05:30 Baso % (Auto) 0.1 % (0.0-2.0) 09/01/18 05:30 Neut # (Auto) 11.3 K/uL (1.8-7.0) H 09/01/18 05:30 Lymph # (Auto) 0.6 K/uL (1.0-4.3) L 09/01/18 05:30 [place] # (Auto) 0.6 K/uL (0.0-0.8) 09/01/18 05:30 Eos # (Auto) 0.0 K/uL (0.0-0.7) 09/01/18 05:30 Baso # (Auto) 0.0 K/uL (0.0-0.2) 09/01/18 05:30 Neutrophils % (Manual) 86 % (42-75) H 09/01/18 05:30 Lymphocytes % (Manual) 9 % (20-50) L 09/01/18 05:30 Monocytes % (Manual) 5 % (0-10) 09/01/18 05:30 Toxic Granulation Present 08/26/18 04:00 Platelet Estimate Slightly decreased (NORMAL) L 09/01/18 05:30 Hypochromasia (manual) Slight 09/01/18 05:30 Anisocytosis (manual) Slight 09/01/18 05:30 Target Cells Slight 08/26/18 04:00 Tear Drop Cells Slight 08/26/18 04:00 Ovalocytes Slight 08/26/18 04:00 Schistocytes Slight 08/26/18 04:00 PT 10.6 Seconds (9.8-13.1) 08/23/18 18:55 INR 0.9 08/23/18 18:55 APTT 30.6 Seconds (25.6-37.1) 08/23/18 18:55 pCO2 36 mm/Hg (35-45) 08/30/18 04:00 pO2 98 mm/Hg (80-100) 08/30/18 04:00 HCO3 33.6 mmol/L (21-28) H 08/30/18 04:00 ABG pH 7.58 (7.35-7.45) H 08/30/18 04:00 ABG Total CO2 34.9 mmol/L (22-28) H 08/30/18 04:00 ABG O2 Saturation 98.9 % (95-98) H 08/30/18 04:00 ABG O2 Content 13.7 ML/dL (15-23) L 08/30/18 04:00 ABG Base Excess 11.1 mmol/L (-2.0-3.0) H 08/30/18 04:00 ABG Hemoglobin 10.0 g/dL (11.7-17.4) L 08/30/18 04:00 ABG Carboxyhemoglobin 1.4 % (0.5-1.5) 08/30/18 04:00 POC ABG HHb (Measured) 1.1 % (0.0-5.0) 08/30/18 04:00 ABG Methemoglobin 1.1 % (0.0-3.0) 08/30/18 04:00 ABG O2 Capacity 13.9 mL/dL (16-24) L 08/30/18 04:00 Jay Test Yes 08/30/18 04:00 ABG Potassium 3.7 mmol/L (3.6-5.2) 08/29/18 06:01 A-a O2 Difference 142.0 mm/Hg 08/30/18 04:00 Hgb O2 Saturation 96.4 % (95.0-98.0) 08/30/18 04:00 Sodium 133.0 mmol/L (132-148) 08/29/18 06:01 Chloride 100.0 mmol/L (98-107) 08/29/18 06:01 Glucose 249 mg/dL (65-105) H 08/29/18 06:01 Lactate 2.5 mmol/L (0.7-2.1) H 08/29/18 06:01 Vent Mode A/c 08/30/18 04:00 Mechanical Rate 16 08/30/18 04:00 FiO2 40.0 % 08/30/18 04:00 Tidal Volume 500 08/30/18 04:00 PEEP 5 08/30/18 04:00 Inspiratory BiPAP 15 08/28/18 21:24 Expiratory BiPAP 5 08/28/18 21:24 Crit Value Called To Yolis villarreal rn 08/28/18 21:24 Crit Value Called By Elvia 08/28/18 21:24 Crit Value Read Back Y 08/28/18 21:24 Blood Gas Notified Time 215208/28/18 21:24 Sodium 130 mmol/l (132-148) L 09/02/18 04:20 Potassium 4.9 MMOL/L (3.6-5.0) 09/02/18 04:20 Chloride 88 mmol/L (98-107) L 09/02/18 04:20 Carbon Dioxide 34 mmol/L (22-30) H 09/02/18 04:20 Anion Gap 13 (10-20) 09/02/18 04:20 BUN 27 mg/dl (7-17) H 09/02/18 04:20 Creatinine 0.6 mg/dl (0.7-1.2) L 09/02/18 04:20 Est GFR ( Amer) > 60 09/02/18 04:20 Est GFR (Non-Af Amer) > 60 09/02/18 04:20 POC Glucose (mg/dL) 294 mg/dL (65-110) H 09/03/18 05:40 Random Glucose 314 mg/dL (65-105) H 09/02/18 04:20 Calcium 8.4 mg/dL (8.4-10.2) 09/02/18 04:20 Phosphorus 3.2 mg/dl (2.5-4.5) 08/25/18 06:00 Magnesium 2.1 MG/DL (1.6-2.3) 08/25/18 06:00 Total Bilirubin 0.4 mg/dl (0.2-1.3) 08/30/18 04:40 AST 19 U/L (14-36) 11/09/18 04:40 ALT 30 U/L (9-52) 08/30/18 04:40 Alkaline Phosphatase 47 U/L (38-126) 08/30/18 04:40 Troponin I 0.0420 ng/mL (0.00-0.120) 08/23/18 18:40 NT-Pro-B Natriuret Pep 876 pg/ml (0-900) 08/23/18 18:40 Total Protein 5.5 G/DL (6.3-8.2) L 08/30/18 04:40 Albumin 3.0 g/dL (3.5-5.0) L 08/30/18 04:40 Globulin 2.5 gm/dL (2.2-3.9) 08/30/18 04:40 Albumin/Globulin Ratio 1.2 (1.0-2.1) 08/30/18 04:40 Procalcitonin < 0.05 NG/ML (0.19-0.49) L 08/25/18 14:48 TSH 3rd Generation 0.49 mIU/ML (0.46-4.68) 08/25/18 11:30 Arterial Blood Potassium 3.7 mmol/L (3.6-5.2) 08/29/18 06:01 Urine Color Yellow (YELLOW) 08/23/18 18:40 Urine Clarity Slighty-cloudy (Clear) 08/23/18 18:40 Urine pH 6.0 (5.0-8.0) 08/23/18 18:40 Ur Specific [place] 1.016 (1.003-1.030) 08/23/18 18:40 Urine Protein 30 mg/dL (NEGATIVE) 08/23/18 18:40 Urine Glucose (UA) Neg mg/dL (Normal) 08/23/18 18:40 Urine Ketones Negative mg/dL (NEGATIVE) 08/23/18 18:40 Urine Blood Small (NEGATIVE) 08/23/18 18:40 Urine Nitrate Negative (NEGATIVE) 08/23/18 18:40 Urine Bilirubin Negative (NEGATIVE) 08/23/18 18:40 Urine Urobilinogen 0.2-1.0 mg/dL (0.2-1.0) 08/23/18 18:40 Ur Leukocyte Esterase Neg [place]/uL (Negative) 08/23/18 18:40 Urine RBC (Auto) 4 /hpf (0-3) H 08/23/18 18:40 Urine Microscopic WBC 12 /hpf (0-5) H 08/23/18 18:40 Ur Squamous Epith Cells 1 /hpf (0-5) 08/23/18 18:40 Ur Transition Epith Cell 4 /hpf (0-3) H 08/23/18 18:40 Urine Bacteria Rare (<OCC) 08/23/18 18:40 Vancomycin Trough 11.0 ug/mL (5.0-10.0) H 09/02/18 04:20 Influenza Typ A,B (EIA) Negative for flu a/b (NEGATIVE) 08/23/18 18:53 - Hospital Course Hospital Course: 72 yo F, patient from the [facility], with hx of morbid obesity, sleep apnea, likely obesity hypoventilation syndrome, COPD, OA, Parkinsons and IDDM, recently discharged 08/21/18 from [facility]; admitted to [facility] with dx COPD exacerbation with intubation. Pt presented with 1 day of SOB and altered mental status, was found to have pCO2 of 120 and pH 7.14; she was intubated immediately and admitted to ICU. Blood cultures were positive for coag neg staph; ID consulted, IV vanco started. Repeat cultures neg. She was also started on IV steroids as well; current dose has been tapered down to 40 mg IV solumedrol; her levemir dose was adjusted to 50U nightly. Pt was extubated 08/30/18, was transferred to telemetry on 09/01/18. Has been doing well on telemetry for the past 3 days while using BIPAP at night and 3 L O2 via NC during the day. Pt has had pseudohyponatremia due to elevated sugar readings; corrected values wnl. She was constipated and colace was started with subsequent BM. Will be discharged back to [facility]; to continue IV vanco for 2 more days, and currently on IV solumedrol 40 mg daily - to be tapered slowly. She is to continue using BIPAP at night and to be on 3L O2 via NC during the day. Discharge Exam - Head Exam Head Exam: ATRAUMATIC, NORMAL INSPECTION, NORMOCEPHALIC - Eye Exam Eye Exam: Normal appearance - ENT Exam ENT Exam: Mucous Membranes Moist - Respiratory Exam Respiratory Exam: NORMAL BREATHING PATTERN. absent: Wheezes, Respiratory Distress - Cardiovascular Exam Cardiovascular Exam: REGULAR RHYTHM, +S1, +S2 - GI/Abdominal Exam GI & Abdominal Exam: Normal Bowel Sounds, Soft (obese) - Extremities Exam Additional comments: no calf tenderness able to move extremities in bed - Neurological Exam Neurological exam: Alert, Oriented x3 - Psychiatric Exam Psychiatric exam: Normal Mood - Skin Skin Exam: Dry, Warm Discharge Plan - Follow Up Plan Condition: GUARDED Disposition: TRANSF TO SNF Instructions: Respiratory Distress Syndrome, Adult (DC), Exacerbation of COPD (DC) Additional Instructions: Pt to be discharged back to [facility] Pt to use BIPAP at night and be on 3L O2 via NC during the day Discharged with 2 more days IV vancomycin Discharged on 40 mg daily IV solumedrol - to be tapered slowly Referrals: Carroll Rene MD [Staff Provider] - <Annika Mishra - Last Filed: 09/03/18 14:30> Provider - Provider Date of Admission: 08/23/18 20:05 Attending physician: Rasta Becker Hospital Course - Lab Results Lab Results: Micro Results 09/01/18 19:00 Naris MRSA Culture (Admit) - Final MRSA NOT DETECTED 08/25/18 14:48 Blood-Thru Central Line Blood Culture - Final NO GROWTH AFTER 5 DAYS 08/25/18 14:48 Blood-Thru Central Line Gram Stain - Final TEST NOT PERFORMED 08/25/18 14:48 Blood-Thru Central Line Blood Culture - Final NO GROWTH AFTER 5 DAYS 08/25/18 14:48 Blood-Thru Central Line Gram Stain - Final TEST NOT PERFORMED 08/23/18 18:30 Blood Blood Culture - Final Coagulase Neg Staphylococcus 08/23/18 18:30 Blood Gram Stain - Final 08/23/18 18:45 Blood S.aureus & Coag-Neg Staph PNA FISH - Final 08/23/18 18:45 Blood Blood Culture - Final Coagulase Neg Staphylococcus 08/23/18 18:45 Blood Gram Stain - Final 08/24/18 10:51 Naris MRSA Culture (Admit) - Final MRSA NOT DETECTED 08/23/18 18:40 Urine Urine Culture - Final No Growth (<1,000 CFU/ML) Most Recent Lab Values WBC 15.8 K/uL (4.8-10.8) H 09/02/18 04:20 RBC 4.26 Mil/uL (3.80-5.20) 09/02/18 04:20 Hgb 11.8 g/dL (12.0-16.0) L 09/02/18 04:20 Hct 37.3 % (34.0-47.0) 09/02/18 04:20 MCV 87.4 fl (81.0-99.0) 09/02/18 04:20 MCH 27.7 pg (27.0-31.0) 09/02/18 04:20 MCHC 31.6 g/dL (33.0-37.0) L 09/02/18 04:20 RDW 16.5 % (11.5-14.5) H 09/02/18 04:20 Plt Count 168 K/uL (130-400) 09/02/18 04:20 MPV 10.2 fl (7.2-11.7) 09/01/18 05:30 Neut % (Auto) 90.4 % (50.0-75.0) H 09/01/18 05:30 Lymph % (Auto) 4.8 % (20.0-40.0) L 09/01/18 05:30 [place] % (Auto) 4.6 % (0.0-10.0) 09/01/18 05:30 Eos % (Auto) 0.1 % (0.0-4.0) 09/01/18 05:30 Baso % (Auto) 0.1 % (0.0-2.0) 09/01/18 05:30 Neut # (Auto) 11.3 K/uL (1.8-7.0) H 09/01/18 05:30 Lymph # (Auto) 0.6 K/uL (1.0-4.3) L 09/01/18 05:30 [place] # (Auto) 0.6 K/uL (0.0-0.8) 09/01/18 05:30 Eos # (Auto) 0.0 K/uL (0.0-0.7) 09/01/18 05:30 Baso # (Auto) 0.0 K/uL (0.0-0.2) 09/01/18 05:30 Neutrophils % (Manual) 86 % (42-75) H 09/01/18 05:30 Lymphocytes % (Manual) 9 % (20-50) L 09/01/18 05:30 Monocytes % (Manual) 5 % (0-10) 09/01/18 05:30 Toxic Granulation Present 08/26/18 04:00 Platelet Estimate Slightly decreased (NORMAL) L 09/01/18 05:30 Hypochromasia (manual) Slight 09/01/18 05:30 Anisocytosis (manual) Slight 09/01/18 05:30 Target Cells Slight 08/26/18 04:00 Tear Drop Cells Slight 08/26/18 04:00 Ovalocytes Slight 08/26/18 04:00 Schistocytes Slight 08/26/18 04:00 PT 10.6 Seconds (9.8-13.1) 08/23/18 18:55 INR 0.9 08/23/18 18:55 APTT 30.6 Seconds (25.6-37.1) 08/23/18 18:55 pCO2 36 mm/Hg (35-45) 08/30/18 04:00 pO2 98 mm/Hg (80-100) 08/30/18 04:00 HCO3 33.6 mmol/L (21-28) H 08/30/18 04:00 ABG pH 7.58 (7.35-7.45) H 08/30/18 04:00 ABG Total CO2 34.9 mmol/L (22-28) H 08/30/18 04:00 ABG O2 Saturation 98.9 % (95-98) H 08/30/18 04:00 ABG O2 Content 13.7 ML/dL (15-23) L 08/30/18 04:00 ABG Base Excess 11.1 mmol/L (-2.0-3.0) H 08/30/18 04:00 ABG Hemoglobin 10.0 g/dL (11.7-17.4) L 08/30/18 04:00 ABG Carboxyhemoglobin 1.4 % (0.5-1.5) 08/30/18 04:00 POC ABG HHb (Measured) 1.1 % (0.0-5.0) 08/30/18 04:00 ABG Methemoglobin 1.1 % (0.0-3.0) 08/30/18 04:00 ABG O2 Capacity 13.9 mL/dL (16-24) L 08/30/18 04:00 Jay Test Yes 08/30/18 04:00 ABG Potassium 3.7 mmol/L (3.6-5.2) 08/29/18 06:01 A-a O2 Difference 142.0 mm/Hg 08/30/18 04:00 Hgb O2 Saturation 96.4 % (95.0-98.0) 08/30/18 04:00 Sodium 133.0 mmol/L (132-148) 08/29/18 06:01 Chloride 100.0 mmol/L (98-107) 08/29/18 06:01 Glucose 249 mg/dL (65-105) H 08/29/18 06:01 Lactate 2.5 mmol/L (0.7-2.1) H 08/29/18 06:01 Vent Mode A/c 08/30/18 04:00 Mechanical Rate 16 08/30/18 04:00 FiO2 40.0 % 08/30/18 04:00 Tidal Volume 500 08/30/18 04:00 PEEP 5 08/30/18 04:00 Inspiratory BiPAP 15 08/28/18 21:24 Expiratory BiPAP 5 08/28/18 21:24 Crit Value Called To Yolis villarreal rn 08/28/18 21:24 Crit Value Called By [id number] 08/28/18 21:24 Crit Value Read Back Y 08/28/18 21:24 Blood Gas Notified Time 6004 08/28/18 21:24 Sodium 130 mmol/l (132-148) L 09/02/18 04:20 Potassium 4.9 MMOL/L (3.6-5.0) 09/02/18 04:20 Chloride 88 mmol/L (98-107) L 09/02/18 04:20 Carbon Dioxide 34 mmol/L (22-30) H 09/02/18 04:20 Anion Gap 13 (10-20) 09/02/18 04:20 BUN 27 mg/dl (7-17) H 09/02/18 04:20 Creatinine 0.6 mg/dl (0.7-1.2) L 09/02/18 04:20 Est GFR ( Amer) > 60 09/02/18 04:20 Est GFR (Non-Af Amer) > 60 09/02/18 04:20 POC Glucose (mg/dL) 289 mg/dL (65-110) H 09/03/18 12:17 Random Glucose 314 mg/dL (65-105) H 09/02/18 04:20 Calcium 8.4 mg/dL (8.4-10.2) 09/02/18 04:20 Phosphorus 3.2 mg/dl (2.5-4.5) 08/25/18 06:00 Magnesium 2.1 MG/DL (1.6-2.3) 08/25/18 06:00 Total Bilirubin 0.4 mg/dl (0.2-1.3) 08/30/18 04:40 AST 19 U/L (14-36) 08/30/18 04:40 ALT 30 U/L (9-52) 08/30/18 04:40 Alkaline Phosphatase 47 U/L (38-126) 08/30/18 04:40 Troponin I 0.0420 ng/mL (0.00-0.120) 08/23/18 18:40 NT-Pro-B Natriuret Pep 876 pg/ml (0-900) 08/23/18 18:40 Total Protein 5.5 G/DL (6.3-8.2) L 08/30/18 04:40 Albumin 3.0 g/dL (3.5-5.0) L 08/30/18 04:40 Globulin 2.5 gm/dL (2.2-3.9) 08/30/18 04:40 Albumin/Globulin Ratio 1.2 (1.0-2.1) 08/30/18 04:40 Procalcitonin < 0.05 NG/ML (0.19-0.49) L 08/25/18 14:48 TSH 3rd Generation 0.49 mIU/ML (0.46-4.68) 08/25/18 11:30 Arterial Blood Potassium 3.7 mmol/L (3.6-5.2) 08/29/18 06:01 Urine Color Yellow (YELLOW) 08/23/18 18:40 Urine Clarity Slighty-cloudy (Clear) 08/23/18 18:40 Urine pH 6.0 (5.0-8.0) 08/23/18 18:40 Ur Specific [place] 1.016 (1.003-1.030) 08/23/18 18:40 Urine Protein 30 mg/dL (NEGATIVE) 08/23/18 18:40 Urine Glucose (UA) Neg mg/dL (Normal) 08/23/18 18:40 Urine Ketones Negative mg/dL (NEGATIVE) 08/23/18 18:40 Urine Blood Small (NEGATIVE) 08/23/18 18:40 Urine Nitrate Negative (NEGATIVE) 08/23/18 18:40 Urine Bilirubin Negative (NEGATIVE) 08/23/18 18:40 Urine Urobilinogen 0.2-1.0 mg/dL (0.2-1.0) 08/23/18 18:40 Ur Leukocyte Esterase Neg [place]/uL (Negative) 08/23/18 18:40 Urine RBC (Auto) 4 /hpf (0-3) H 08/23/18 18:40 Urine Microscopic WBC 12 /hpf (0-5) H 08/23/18 18:40 Ur Squamous Epith Cells 1 /hpf (0-5) 08/23/18 18:40 Ur Transition Epith Cell 4 /hpf (0-3) H 08/23/18 18:40 Urine Bacteria Rare (<OCC) 08/23/18 18:40 Vancomycin Trough 11.0 ug/mL (5.0-10.0) H 09/02/18 04:20 Influenza Typ A,B (EIA) Negative for flu a/b (NEGATIVE) 08/23/18 18:53 Attending/Attestation - Attestation I have personally seen and examined this patient.: Yes I have fully participated in the care of the patient.: Yes I have reviewed all pertinent clinical information, including history, physical exam and plan: Yes Notes (Text): 1. Acute on Chronic Hypercapnic Respiratory Failure, Secondary to COPD Exacerbation and OHS - Pt was intubated and was placed on [facility] Ventilation on admission, extubated 08/30 - Cont oxygen per NC at 3 liters during the daytime and BIPAP at nighttime - Consulted Pulmonary Dr Rhoda Flores Q4hs - Cont IV Solumedrol 40 mg daily , taper slowly 2. COPD Exacerbation - Cont Albuterol/Ipratropium - Cont Methylprednisolone 3. Staph Coag Negative Bacteremia - Positive blood cultures x 2 - On IV Vanco, trough elevated , decrease to once daily , cont x 2 more days in NH - ID consulted - Rpt Blood c/s negative 4. Dehydration - Improved with IV Fluids 5.DM type II with Hyperglycemia, Insulin Use - Hyperglycemia exacerbated by steroids - Increase Levemir 50 units qhs - Lispro sliding scale according to accucheck 6. Hypothyroidism - Continue Levothyroxine 7. HTN - Cont Norvasc , Lisinopril and Metoprolol 8. Dyslipidemia - Continue pravastatin 9. Parkinson's - Cont Sinemet 10. Depression - Cont Lexapro 11. DVT prophylaxis - SCD and lovenox
[2018-09-03 19:50] VITALS: BP 132/71; PULSE 55; RESP 18; TEMP 98.6; O2SAT 99
[2018-09-03] MEDS: Pravastatin Sodium 20 MG TAB PO SCH (21:20)
[2018-09-03] MEDS: Insulin Detemir 100 Units/ml Inj SC SCH (21:25)
== END 2018-09-03 23:00 | DRG 207 ==
LOC: H.ER 18:06 → H.ERHOLD 20:05 → H.ICU/CCU 22:20 → H.TEL 09-01 16:43
PROVIDERS: ADMIT Internal Medicine; ATTEND Internal Medicine
PROC: 5A1955Z Respiratory Ventilation, Greater than 96 Consecutive Hours (ICD-10-PCS; principal; 2018-08-23)
PROC: 0BH17EZ Insertion of Endotracheal Airway into Trachea, Via Natural or Artificial Opening (ICD-10-PCS; 2018-08-23)
PROC: 0BH17EZ Insertion of Endotracheal Airway into Trachea, Via Natural or Artificial Opening (ICD-10-PCS; 2018-08-28)
DX: J96.22 Acute and chronic respiratory failure with hypercapnia (principal); J18.1 Lobar pneumonia, unspecified organism; R78.81 Bacteremia; J44.1 Chronic obstructive pulmonary disease with (acute) exacerbation; E66.2 Morbid (severe) obesity with alveolar hypoventilation; E87.2 Acidosis; I50.32 Chronic diastolic (congestive) heart failure; J44.0 Chronic obstructive pulmonary disease with (acute) lower respiratory infection; N39.0 Urinary tract infection, site not specified; Z68.42 Body mass index [BMI] 45.0-49.9, adult; E11.65 Type 2 diabetes mellitus with hyperglycemia; G20 Parkinson's disease; Z79.4 Long term (current) use of insulin; E87.6 Hypokalemia; I11.0 Hypertensive heart disease with heart failure; F02.80 Dementia in other diseases classified elsewhere, unspecified severity, without behavioral disturbance, psychotic disturbance, mood disturbance, and anxiety; Z96.651 Presence of right artificial knee joint; E86.0 Dehydration; E03.9 Hypothyroidism, unspecified; T38.0X5A Adverse effect of glucocorticoids and synthetic analogues, initial encounter; D72.829 Elevated white blood cell count, unspecified; Z87.891 Personal history of nicotine dependence; J96.01 Acute respiratory failure with hypoxia; F41.8 Other specified anxiety disorders; B95.7 Other staphylococcus as the cause of diseases classified elsewhere; Z74.01 Bed confinement status; E78.5 Hyperlipidemia, unspecified; K59.00 Constipation, unspecified

== ENCOUNTER 2018-10-10 18:55 | Observation (INO) | payer MEDICARE, MEDICAID ==
[2018-10-10 18:56] VITALS: BMI 55.0
[2018-10-10 20:11] LABS: BASO # 0.1 K/uL (0.0-0.2); BASO % 1.2 % (0.0-2.0); EOS # 0.2 K/uL (0.0-0.7); EOS % 3.1 % (0.0-4.0); HEMOGLOBIN 9.6 g/dL (12.0-16.0); LYMPH # 1.9 K/uL (1.0-4.3); LYMPH % 24.2 % (20.0-40.0); MEAN CELL VOLUME 88.6 fl (81.0-99.0); MEAN CORPUSCULAR HEMOGLOBIN 28.2 pg (27.0-31.0); MEAN CORPUSCULAR HGB CONC 31.8 g/dL (33.0-37.0); MONO # 0.8 K/uL (0.0-0.8); MONO % 10.2 % (0.0-10.0); NEUT # 4.8 K/uL (1.8-7.0); NEUT % 61.3 % (50.0-75.0); PROTHROMBIN TIME 11.1 Seconds (9.8-13.1); RBC 3.41 Mil/uL (3.80-5.20); RED CELL DISTRIBUTION WIDTH 16.5 % (11.5-14.5); WHITE BLOOD COUNT 7.8 K/uL (4.8-10.8)
[2018-10-10 20:14] LABS: PARTIAL THROMBOPLASTIN TIME 34.5 Seconds (25.6-37.1)
[2018-10-10 20:19] LABS: ALBUMIN 3.2 g/dL (3.5-5.0); ALT/SGPT 29 U/L (9-52); AST/SGOT 33 U/L (14-36); BLOOD UREA NITROGEN 8 mg/dl (7-17); CALCIUM 8.4 mg/dL (8.4-10.2); GFR NON-AFRICAN AMERICAN > 60
[2018-10-10 20:29] LABS: B-TYPE NATRIURETIC PEPTIDE 350 pg/ml (0-900)
--- NOTE | 2018-10-10 22:46 | ED PDOC ---
HPI: SOB/CHF/COPD Time Seen by Provider: 10/10/18 19:14 Chief Complaint (Nursing): Shortness Of Breath Chief Complaint (Provider): Shortness Of Breath History Per: Patient History/Exam Limitations: no limitations Onset/Duration Of Symptoms: Hrs Current Symptoms Are (Timing): Still Present Additional Complaint(s): 73 year old female with a history of respiratory failure, CHF, COPD and a tracheostomy presents to the ED with shortness of breath. Patient was sent from [facility] after a transient episode of desaturation that occurred while she was being moved in order to change. Upon arrival to the ED she is saturating normally and offers no complaints. PMD: none provided Past Medical History Reviewed: Historical Data, Nursing Documentation, Vital Signs Vital Signs: Last Vital Signs Temp 97.8 F 10/10/18 19:00 Pulse 89 10/10/18 22:22 Resp 25 H 10/10/18 22:22 BP 139/74 10/10/18 22:22 Pulse Ox 100 10/10/18 22:22 - Medical History PMH: Anemia, Anxiety, Arthritis, Bipolar Disorder, COPD (ex-smoker), Dementia, Depression, HTN, Hypercholesterolemia, Hypothyroidism, Parkinson's Disease, Sleep Apnea (on Bipap) Denies: Chronic Kidney Disease - Surgical History Surgical History: No Surg Hx - Family History Family History: States: Unknown Family Hx - Immunization History Hx Tetanus Toxoid Vaccination: No Hx Influenza Vaccination: No Hx Pneumococcal Vaccination: No - Home Medications Home Medications: Ambulatory Orders Medication Instructions Recorded RX: Magnesium Hydroxide [Milk Of 30 ml PO PRN PRN #0 09/16/17 Magnesia] RX: Carbidopa/Levodopa 25/100 mg 1 tab PO TID tab 09/14/18 [Sinemet] RX: Docusate [Colace] 100 mg PO BID cap 09/14/18 RX: Escitalopram [Lexapro] 10 mg PO DAILY tab 09/14/18 RX: Gabapentin [Neurontin] 100 mg PO TID 09/15/18 ALPRAZolam [Xanax] 0.25 mg PO Q8 PRN 10/11/18 Arformoterol [Brovana] 15 mcg IH BID 10/11/18 Bisacodyl [Ducolax] 10 mg RC BID PRN 10/11/18 Budesonide [Pulmicort Respules] 1 mg IH Q12H 10/11/18 Insulin Glargine,Hum.rec.anlog 12 unit SQ Q12H 10/11/18 [Lantus] Insulin Lispro Protamin/Lispro See Protocol SC ACHS 10/11/18 [Humalog Mix 50/50 50 U/ml-50 U/ml 10 ml] Montelukast [Singulair] 10 mg PO HS 10/11/18 Pantoprazole [Protonix] 40 mg PO DAILY 10/11/18 RX: Acetaminophen [Tylenol 325mg 650 mg PO Q6 PRN 10/11/18 tab] RX: Albuterol/Ipratropium [Duoneb 3 ml INH RQ6 PRN 10/11/18 3 mg/0.5 mg (3 ml) UD] RX: Folic Acid 1 mg PO DAILY 10/11/18 RX: Levothyroxine [Synthroid] 137 mcg PO DAILY 10/11/18 RX: Primidone [Mysoline] 50 mg PO HS 10/11/18 RX: Rosuvastatin Calcium 2.5 5 mg PO HS 10/11/18 [Crestor] - Allergies Allergies/Adverse Reactions: Allergies Allergy/AdvReac Type Severity Reaction Status Date / Time Cephalosporins Allergy Intermediate RASH Verified 09/09/18 09:53 Penicillins Allergy Intermediate RASH Verified 09/09/18 09:53 clonazepam [From Klonopin] Allergy Verified 09/09/18 09:53 mustard Allergy Intermediate RASH Uncoded 09/09/18 09:53 Review of Systems ROS Statement: Except As Marked, All Systems Reviewed And Found Negative Respiratory: Positive for: Shortness of Breath Physical Exam - Reviewed Nursing Documentation Reviewed: Yes Vital Signs Reviewed: Yes - Physical Exam Appears: Positive for: No Acute Distress (comfortable) Head Exam: Positive for: ATRAUMATIC, NORMAL INSPECTION, NORMOCEPHALIC Skin: Positive for: Normal Color, Warm, Dry Eye Exam: Positive for: Normal appearance ENT: Positive for: Other (tracheostomy in place) Neck: Positive for: Normal, Painless ROM, Supple Cardiovascular/Chest: Positive for: Regular Rate, Rhythm. Negative for: Murmur Respiratory: Positive for: Normal Breath Sounds. Negative for: Respiratory Distress Gastrointestinal/Abdominal: Positive for: Normal Exam, Soft. Negative for: Tenderness Extremity: Positive for: Normal ROM (upper and lower). Negative for: Deformity Neurologic/Psych: Positive for: Alert, Oriented (x 3). Negative for: Motor/Sensory Deficits - Laboratory Results Result Diagrams: 10/10/18 19:50 10/10/18 19:50 - ECG O2 Sat by Pulse Oximetry: 100 (RA) Pulse Ox Interpretation: Normal Medical Decision Making Medical Decision Makin Impression: 73 year old female with an episode of desaturation. Initial Plan: --EKG --BNP --CMP --Lactic acid --Troponin --Urine dip --CBC --PTT/PT --CXR --Blood cx 2105 CXR Findings: The cardiac silhouette is enlarged. There is evidence for pulmonary venous congestion compatible with CHF. There is no definite radiographic evidence for a lung mass or consolidation. Bony structures appear normal. IMPRESSION: 1. Enlarged cardiac silhouette. 2. Pulmonary venous congestion compatible with CHF. Central line and tracheostomy tube noted Scribe Attestation: Documented by Elmira Metz acting as a scribe for Agustin Medina MD Provider Scribe Attestation: All medical record entries made by the Scribe were at my direction and personally dictated by me. I have reviewed the chart and agree that the record accurately reflects my personal performance of the history, physical exam, medical decision making, and the department course for this patient. I have also personally directed, reviewed, and agree with the discharge instructions and disposition. Disposition - Clinical Impression Clinical Impression: Respiratory distress, COPD (chronic obstructive pulmonary disease) - Disposition Disposition Time: 22:00 Condition: FAIR - Pt Status Changed To: Hospital Disposition Of: Observation
[2018-10-10] MEDS ORDERED: Albuterol-Ipratrop 3 mg / 0.5 (3 ml) UD INH STA (23:03)
[2018-10-10] MEDS ORDERED: Albuterol-Ipratrop 3 mg / 0.5 (3 ml) UD ONE ×2 (23:11)
[2018-10-11] MEDS ORDERED: Magnesium Hydroxide Susp 30 ml UD PO PRN (04:54)
[2018-10-11] MEDS ORDERED: INSULIN GLARGINE HUM REC ANLOG 12 UNIT SQ SCH (05:00)
[2018-10-11] MEDS ORDERED: Budesonide 0.5 mg/2 ml Inhal Susp UD IH SCH (05:00)
[2018-10-11] MEDS ORDERED: Sodium Chloride 3% for Inhalation 4 ML VIAL.NEB IH PRN (05:12)
[2018-10-11 05:43] LABS: ABG ALLEN TEST YES; ARTERIAL BLOOD GAS HCO3 29.4 mmol/L (21-28); ARTERIAL BLOOD GAS HEMOGLOBIN 10.7 g/dL (11.7-17.4); ARTERIAL BLOOD GAS O2 CAPACITY 14.8 mL/dL (16-24); ARTERIAL BLOOD GAS O2 CONTENT 14.5 ML/dL (15-23); ARTERIAL BLOOD GAS O2 SAT 97.9 % (95-98); ARTERIAL BLOOD GAS PCO2 63 mm/Hg (35-45); ARTERIAL BLOOD GAS PH 7.33 (7.35-7.45); ARTERIAL BLOOD GAS PO2 84 mm/Hg (80-100); ARTERIAL BLOOD GAS TCO2 35.1 mmol/L (22-28)
[2018-10-11] MEDS ORDERED: Levothyroxine 150 MCG TAB PO SCH (06:30)
[2018-10-11] MEDS ORDERED: LISPRO SC SCH (07:30)
[2018-10-11] MEDS: Insulin Lispro (humaLOG) 100 Units/ml Inj SC SCH ×4 (07:30→23:00)
[2018-10-11] MEDS: Budesonide 0.5 mg/2 ml Inhal Susp UD IH SCH ×2 (07:52→19:52)
[2018-10-11] MEDS: Albuterol-Ipratrop 3 mg / 0.5 (3 ml) UD INH SCH ×4 (07:52→19:23)
[2018-10-11] MEDS ORDERED: methylPREDNISolone 80 MG in Sodium Chloride 0.9% 50 ML IVPB SCH (09:00)
[2018-10-11] MEDS ORDERED: Pantoprazole 40 mg EC Tab PO SCH (09:00)
[2018-10-11] MEDS: Insulin Detemir 100 Units/ml Inj SC SCH ×2 (09:00→23:21)
[2018-10-11] MEDS: Enoxaparin 40 mg Syringe SC SCH (11:44)
[2018-10-11] MEDS: Azithromycin 500 MG in Sodium Chloride 0.9% 250 ML IVPB SCH (11:57)
--- NOTE | 2018-10-11 13:15 | RAD ---
HISTORY: chest pain COMPARISON: Chest x-ray performed 08/30/18 TECHNIQUE: Chest, one view. FINDINGS: Tracheostomy tube. Right IJ approach [employer] extends expected location of the right atrium. Examination limited by habitus, hypoinflation, and patient obliquity. Face mask obscures evaluation of the left lung apex. Numerous external wires and leads noted. LUNGS: Mild to moderate pulmonary venous congestion. Right basilar atelectasis/pneumonia. Please note that chest x-ray has limited sensitivity for the detection of pulmonary masses. PLEURA: Right apical fluid/pleural thickening. No definite pneumothorax . CARDIOVASCULAR: Cardiomegaly. Atherosclerotic calcifications. OSSEOUS STRUCTURES: Degenerative changes. Scoliosis convex to the right. VISUALIZED UPPER ABDOMEN: Elevation of the right hemidiaphragm. OTHER FINDINGS: None. IMPRESSION: Cardiomegaly. Mild to moderate pulmonary venous congestion. Right apical fluid/pleural thickening. Right basilar atelectasis/pneumonia. Hypoinflation.
--- NOTE | 2018-10-11 15:49 | CARD ---
APPROVED REPORT Date of service: 10/10/2018 EKG Measurement Heart [id number] <Conclusion> Normal sinus rhythm Nonspecific T wave abnormality Abnormal ECG
[2018-10-11] MEDS: levoFLOXacin 500 MG TAB PO SCH (18:02)
[2018-10-11] MEDS ORDERED: ROSUVASTATIN CALCIUM 5 MG PO SCH (22:00)
[2018-10-12] MEDS: Albuterol-Ipratrop 3 mg / 0.5 (3 ml) UD INH SCH ×5 (00:34→15:39)
--- NOTE | 2018-10-12 07:55 | HP ---
HISTORY OF PRESENT ILLNESS: The patient is a 73-year-old female with history of respiratory failure, who was recently discharged from [facility] status post tracheostomy, and PEG. She was transferred to the care home where she was being changed and desaturated and became hypoxic, was therefore transferred back to [facility] where she was admitted to telemetry for monitoring. In the care home, her oxygen saturation was in the 80s, but since she arrived at [facility], oxygen saturation has been in the 90s to 110s range. PAST MEDICAL HISTORY: She is unable to give any history, but as per records, has congestive heart failure, COPD, and has recent tracheostomy and recent PEG. FAMILY HISTORY: No other family history is obtained. PHYSICAL EXAMINATION: GENERAL: The patient is obese, awake and alert, appears comfortable. VITAL SIGNS: Blood pressure 139/74, pulse of 89, respiratory rate 25. She is afebrile with temperature of 97.8 degrees Fahrenheit. O2 sat 100% on 35% trach collar. SKIN: Shows fair turgor. HEENT: Mouth fair hygiene. JVP flat. LUNGS: Fair aeration, some dullness at the bases. The tracheal area appears clean and clear. ABDOMEN: Has PEG in place in the mid abdomen. Normoactive bowel sounds. No organomegaly appreciated. EXTREMITIES: Trace edema. CENTRAL NERVOUS SYSTEM: The patient is easily arousable. IMAGING STUDIES: Chest x-ray, remarkable for cardiomegaly with mild to moderate pulmonary venous congestion, right airspace pleural thickening, right basilar atelectasis, pneumonia or hyperinflation. LABORATORY DATA: WBC of 7.8, hemoglobin 9.6, and platelet count of 298,000. ABG, pH of 7.33, pCO2 of 63, and pO2 of 84, bicarbonate of 29.4. O2 sat 97.9. Sodium 137, potassium 3.9, BUN of 8, and creatinine 0.5. IMPRESSION: Respiratory distress, probably secondary to exacerbation of chronic obstructive pulmonary disease, mucous plugging of airways, history of congestive heart failure chronic but stable, status post PEG placement, status post tracheostomy for respiratory failure. PLAN: Continue oxygenation as well as bronchodilators, would give antibiotics via PEG. The patient to be discharge back to care home if clinically stable in the next 24 hours. Chilango Ceballos MD [facility] # [id number]
[2018-10-12] MEDS: Budesonide 0.5 mg/2 ml Inhal Susp UD IH SCH (08:01)
[2018-10-12] MEDS: Azithromycin 500 MG in Sodium Chloride 0.9% 250 ML IVPB SCH (08:35)
[2018-10-12] MEDS: levoFLOXacin 500 MG TAB PO SCH (08:36)
[2018-10-12] MEDS: Insulin Lispro (humaLOG) 100 Units/ml Inj SC SCH ×6 (08:36→16:47)
[2018-10-12] MEDS: Insulin Detemir 100 Units/ml Inj SC SCH (08:37)
[2018-10-12] MEDS: Enoxaparin 40 mg Syringe SC SCH (08:40)
--- NOTE | 2018-10-12 11:25 | CP.PCM.DIS ---
Provider - Provider Date of Admission: 10/10/18 23:05 Attending physician: Chilango Ceballos MD Consults: 10/11/18 05:53 Nursing Referral for Wound Care Routine Comment: Physician Instructions: Reason For Exam: sacral ulcer Time Spent in preparation of Discharge (in minutes): 30 Diagnosis - Discharge Diagnosis (1) Respiratory distress Status: Acute (2) COPD (chronic obstructive pulmonary disease) Status: Chronic Priority: High (3) Acute respiratory failure with hypoxia and hypercapnia Status: Acute Priority: High (4) COPD exacerbation Status: Acute Priority: High (5) Diabetes Status: Chronic (6) HTN (hypertension) Status: Chronic (7) Hypothyroidism Status: Chronic Hospital Course - Lab Results Lab Results: Micro Results 10/10/18 19:50 Blood-Venous Blood Culture - Preliminary NO GROWTH AFTER 24 HOURS Most Recent Lab Values WBC 7.8 K/uL (4.8-10.8) D 10/10/18 19:50 RBC 3.41 Mil/uL (3.80-5.20) L 10/10/18 19:50 Hgb 9.6 g/dL (12.0-16.0) L D 10/10/18 19:50 Hct 30.2 % (34.0-47.0) L 10/10/18 19:50 MCV 88.6 fl (81.0-99.0) 10/10/18 19:50 MCH 28.2 pg (27.0-31.0) 10/10/18 19:50 MCHC 31.8 g/dL (33.0-37.0) L 10/10/18 19:50 RDW 16.5 % (11.5-14.5) H 10/10/18 19:50 Plt Count 298 K/uL (130-400) D 10/10/18 19:50 MPV 9.0 fl (7.2-11.7) 10/10/18 19:50 Neut % (Auto) 61.3 % (50.0-75.0) 10/10/18 19:50 Lymph % (Auto) 24.2 % (20.0-40.0) 10/10/18 19:50 [place] % (Auto) 10.2 % (0.0-10.0) H 10/10/18 19:50 Eos % (Auto) 3.1 % (0.0-4.0) 10/10/18 19:50 Baso % (Auto) 1.2 % (0.0-2.0) 10/10/18 19:50 Neut # (Auto) 4.8 K/uL (1.8-7.0) 10/10/18 19:50 Lymph # (Auto) 1.9 K/uL (1.0-4.3) 10/10/18 19:50 [place] # (Auto) 0.8 K/uL (0.0-0.8) 10/10/18 19:50 Eos # (Auto) 0.2 K/uL (0.0-0.7) 10/10/18 19:50 Baso # (Auto) 0.1 K/uL (0.0-0.2) 10/10/18 19:50 PT 11.1 Seconds (9.8-13.1) 10/10/18 19:50 INR 1.0 10/10/18 19:50 APTT 34.5 Seconds (25.6-37.1) 10/10/18 19:50 pCO2 63 mm/Hg (35-45) H 10/11/18 05:40 pO2 84 mm/Hg (80-100) 10/11/18 05:40 HCO3 29.4 mmol/L (21-28) H 10/11/18 05:40 ABG pH 7.33 (7.35-7.45) L 10/11/18 05:40 ABG Total CO2 35.1 mmol/L (22-28) H 10/11/18 05:40 ABG O2 Saturation 97.9 % (95-98) 10/11/18 05:40 ABG O2 Content 14.5 ML/dL (15-23) L 10/11/18 05:40 ABG Base Excess 5.8 mmol/L (-2.0-3.0) H 10/11/18 05:40 ABG Hemoglobin 10.7 g/dL (11.7-17.4) L 10/11/18 05:40 ABG Carboxyhemoglobin 1.7 % (0.5-1.5) H 10/11/18 05:40 POC ABG HHb (Measured) 2.0 % (0.0-5.0) 10/11/18 05:40 ABG Methemoglobin 1.0 % (0.0-3.0) 10/11/18 05:40 ABG O2 Capacity 14.8 mL/dL (16-24) L 10/11/18 05:40 Jay Test Yes 10/11/18 05:40 A-a O2 Difference 194.0 mm/Hg 10/11/18 05:40 Hgb O2 Saturation 95.4 % (95.0-98.0) 10/11/18 05:40 FiO2 50.0 % 10/11/18 05:40 Sodium 137 mmol/l (132-148) 10/10/18 19:50 Potassium 3.9 MMOL/L (3.6-5.0) 10/10/18 19:50 Chloride 98 mmol/L (98-107) 10/10/18 19:50 Carbon Dioxide 33 mmol/L (22-30) H 10/10/18 19:50 Anion Gap 10 (10-20) 10/10/18 19:50 BUN 8 mg/dl (7-17) 10/10/18 19:50 Creatinine 0.5 mg/dl (0.7-1.2) L 10/10/18 19:50 Est GFR ( Amer) > 60 10/10/18 19:50 Est GFR (Non-Af Amer) > 60 10/10/18 19:50 POC Glucose (mg/dL) 241 mg/dL (65-110) H 10/12/18 11:10 Random Glucose 149 mg/dL (65-105) H 10/10/18 19:50 Lactic Acid 0.8 MMOL/L (0.7-2.1) 10/10/18 19:50 Calcium 8.4 mg/dL (8.4-10.2) 10/10/18 19:50 Total Bilirubin 0.4 mg/dl (0.2-1.3) 10/10/18 19:50 AST 33 U/L (14-36) 10/10/18 19:50 ALT 29 U/L (9-52) 10/10/18 19:50 Alkaline Phosphatase 117 U/L (38-126) 10/10/18 19:50 Troponin I 0.0380 ng/mL (0.00-0.120) 10/10/18 19:50 NT-Pro-B Natriuret Pep 350 pg/ml (0-900) 10/10/18 19:50 Total Protein 6.4 G/DL (6.3-8.2) 10/10/18 19:50 Albumin 3.2 g/dL (3.5-5.0) L 10/10/18 19:50 Globulin 3.2 gm/dL (2.2-3.9) 10/10/18 19:50 Albumin/Globulin Ratio 1.0 (1.0-2.1) 10/10/18 19:50 - Hospital Course Hospital Course: RESPIRATORY DISTRESS IMPROVED--PROBABLY DUE TO MUCUS PLUGGING OF AIRWAYS Discharge Exam - Head Exam Head Exam: ATRAUMATIC, NORMAL INSPECTION, NORMOCEPHALIC - Eye Exam Eye Exam: EOMI, Normal appearance, PERRL Pupil Exam: NORMAL ACCOMODATION, PERRL - Respiratory Exam Respiratory Exam: Decreased Breath Sounds, Prolonged Expiratory Phase - GI/Abdominal Exam GI & Abdominal Exam: Normal Bowel Sounds Additional comments: PEG IN PLACE - Rectal Exam Rectal Exam: NORMAL INSPECTION - Neurological Exam Neurological exam: Alert, CN II-XII Intact, Reflexes Normal - Psychiatric Exam Psychiatric exam: Normal Affect, Normal Mood - Skin Skin Exam: Dry, Intact, Normal Color, Warm Discharge Plan - Follow Up Plan Condition: FAIR Disposition: HOME/ ROUTINE Additional Instructions: DISCHARGE TO CUSTODIAL TODAY SUCTION TRACH,PRN O2 VIA TRACH COLLAR BRONCHODILATOR RX CONTINUE LEVAQUIN X 1 WEEK
[2018-10-12 15:42] VITALS: BP 109/76; PULSE 72; RESP 16; TEMP 97.7; O2SAT 96
[2018-10-12] MEDS ORDERED: Chlorhexidine Gluconate 1 APPL/PKT TP ONE (17:54)
== END 2018-10-12 18:51 ==
LOC: H.ER 18:55 → H.ERHOLD 23:05 → H.TEL 10-11 04:26
PROVIDERS: ADMIT Internal Medicine Pulmonary Disease; ATTEND Internal Medicine Pulmonary Disease
DX: J44.1 Chronic obstructive pulmonary disease with (acute) exacerbation (principal); J96.01 Acute respiratory failure with hypoxia; J96.02 Acute respiratory failure with hypercapnia; T17.990A Other foreign object in respiratory tract, part unspecified in causing asphyxiation, initial encounter; E78.00 Pure hypercholesterolemia, unspecified; F03.90 Unspecified dementia, unspecified severity, without behavioral disturbance, psychotic disturbance, mood disturbance, and anxiety; F31.9 Bipolar disorder, unspecified; G20 Parkinson's disease; G47.30 Sleep apnea, unspecified; Z87.891 Personal history of nicotine dependence; Z93.1 Gastrostomy status; D64.9 Anemia, unspecified; F32.9 Major depressive disorder, single episode, unspecified; F41.9 Anxiety disorder, unspecified; M19.90 Unspecified osteoarthritis, unspecified site; E03.9 Hypothyroidism, unspecified; E11.9 Type 2 diabetes mellitus without complications; I11.0 Hypertensive heart disease with heart failure; I50.9 Heart failure, unspecified
CPT/HCPCS: 71045; 80053; 81025; 82803; 82948; 83605; 83880; 84484; 85025; 85610; 85730; 87040; 87070; 93005; 94640; 96372; 99285; G0378; J1650; J2930